=== PATIENT | female | born 1965 | race Caucasian/White ===

== ENCOUNTER 2024-01-13 12:32 | Outpatient (OUT) | payer OTHER, SELFPAY ==
[2024-01-13 13:38] LABS: Estimated Average Glucose 111 mg/dL; Glycohemoglobin A1C 5.5 % (4.5-6.2)
[2024-01-13 13:58] LABS: Alanine Aminotransferase 21 U/L (14-59); Albumin Globulin Ratio 1.1; Albumin Level 3.7 g/dL (3.4-5.0); Alkaline Phosphatase 80 U/L (46-116); Aspartate Amino Transferase 11 U/L (15-37); Bilirubin Direct 0.1 mg/dL (0.0-0.2); Bilirubin Total 0.6 mg/dL (0.2-1.0); Chol HDL Ratio 3.7; Cholesterol 218 mg/dL (<=200); Estimated GFR (African America >60 (>=60); Estimated GFR (Non-African Ame >60 (>=60); Globulin 3.3 g/dL; HDL Cholesterol 59 mg/dL (40-60); Thyroid Stimulating Hormone 0.914 uIU/mL (0.358-3.740); Triglycerides 114 mg/dL (<=150); VLDL CHOLESTEROL 22.8 mg/dL
[2024-01-13 14:26] LABS: Basophils Percent Auto 0.3 % (0.2-2.0); Eosinophils Percent Auto 0.1 % (0.9-7.0); Hematocrit 44.3 % (36.0-48.0); Hemoglobin 14.4 g/dL (12.0-16.0); Immature Granulocytes Abs Auto 0.02 10^3/uL (0.00-0.03); Immature Granulocytes Pct Auto 0.2 % (0.0-0.5); Lymphocytes Absolute Auto 1.1 10^3/uL (1.2-3.8); Lymphocytes Percent Auto 12.1 % (20.5-60.0); Mean Corpuscular HGB Conc 32.5 g/dL (29.9-35.2); Mean Corpuscular Volume 89.1 fL (81.0-99.0); Mean Platelet Volume 11.3 fL (9.5-13.5); Monocytes Absolute Auto 0.4 10^3/uL (0.3-0.8); Monocytes Percent Auto 4.2 % (1.7-12.0); Neutrophils Absolute Auto 7.3 10^3/uL (1.4-6.5); Neutrophils Percent Auto 83.1 % (43.0-75.0); Platelet Count 234 10^3/uL (150-450); Red Blood Count 4.97 10^6/uL (4.20-5.40); Red Cell Distribution Width 12.9 % (11.0-15.0); White Blood Count 8.8 10^3/uL (4.0-11.0)
== END 2024-01-13 12:33 | disposition home or self-care (01) ==
LOC: LAB 12:45
PROVIDERS: PCP Internal Medicine; Visit Provider Internal Medicine
DX: E78.2 Mixed hyperlipidemia (principal); Z79.899 Other long term (current) drug therapy; R73.09 Other abnormal glucose; E03.9 Hypothyroidism, unspecified; I10 Essential (primary) hypertension
CPT/HCPCS: 36415; 80061; 80076; 82565; 83036; 84443; 84520; 85025

== ENCOUNTER 2024-09-22 14:47 | Outpatient (OUT) | payer OTHER, SELFPAY ==
--- NOTE | 2024-09-22 14:50 | MR_ITS ---
[facility] [id number] Patient Name: LISA RAMOS MRN: [id number] date: 1965 Sex: F Assigned Patient Location: MRI Current Patient Location: MRI Accession/Order Number: [id number] Exam Date: 09/22/2024 14:55 Report Date: 09/22/2024 20:47 At the request of: JULIETTE PICKERING Procedure: MR head/brain wo con EXAM: MR head/brain wo con HISTORY: Syncope, Tremors COMPARISON: None. TECHNIQUE: MRI of the brain was performed without contrast. FINDINGS: Exam is distorted secondary to motion artifact. Findings are made within these confines. There is no restricted diffusion to suggest acute infarct. There is no midline shift, mass effect, or abnormal extraaxial fluid collections. The cortical sulci and ventricular system are within normal limits. There are a few nonspecific scattered foci of T2/FLAIR signal abnormality in the subcortical and periventricular white matter. The major intracranial flow voids are visualized. The cerebellar tonsils are normal in position. The orbits are unremarkable. The paranasal sinuses show no air-fluid level. The mastoid air cells are clear. The calvarium and extracranial soft tissues are unremarkable. MR/MR head/brain wo con IMPRESSION: Within the limitations of motion artifact, no discrete acute intracranial abnormality identified. Mild T2/FLAIR signal abnormality in the supratentorial white matter, most likely based on chronic microvascular ischemia or migraine headaches. Electronically authenticated by: JAY HAM Date: 09/22/2024 20:47
== END 2024-09-22 14:48 | disposition home or self-care (01) ==
LOC: MRI 14:47
PROVIDERS: PCP Internal Medicine; Visit Provider Internal Medicine
DX: R55 Syncope and collapse (principal); R25.1 Tremor, unspecified
CPT/HCPCS: 70551

== ENCOUNTER 2025-02-08 08:53 | Outpatient (OUT) | payer OTHER, SELFPAY ==
--- OUTSIDE RECORDS SUMMARY | 2025-02-08 09:06 | XMS_ITS | CCD ---
Author Organization [facility] Care Team Providers Care Substation Design Draftsperson Name Role Phone PHYSICIAN, DEFAULT Unavailable Unavailable PHYSICIAN, DEFAULT Unavailable Unavailable PHYSICIAN, DEFAULT Unavailable Unavailable PHYSICIAN, DEFAULT Unavailable Unavailable SOHAIL PICKERING Admitting Unavailable SOHAIL PICKERING Attending Unavailable SOHAIL PICKERING Primary Care Unavailable SOHAIL PICKERING Consulting Unavailable Viki Shankar Unavailable DAILY Swenson Attending Unavailable DAILY Swenson Admitting Unavailable SOHAIL PICKERING JR. Primary Care UnavailADAMA Weiss Attending Unavailable Unavailable Primary Care Provider UnavailSohail Rod MD Primary Care Provider [phone] Sohail Pickering JR Primary Care Provider [phone] Cesar Hurt DO Attending Provider [phone] Sohail Pickering Primary Care Unavailable Cesar Hurt Attending Unavailable Cesar Hurt Admitting Unavailable Licha JARA Cesar Unavailable CESAR HURT Attending Unavailable SOHAIL PICKERING Referring Unavailable CESAR HURT Attending Unavailable CHRISTINA PIZANO Attending Unavailable CHRISTINA PIZANO Referring Unavailable ETHAN TIWARI Attending Unavailable ETHAN TIWARI Attending Unavailable ETHAN TIWARI Attending Unavailable Allergies Allergy Classification Reported Allergen(s) Allergy Type Date of Onset Reaction(s) Facility (6 sources) carvedilol; Translations: [CARVEDILOL] Drug Allergy 3 Nausea Only [facility] Repository (6 sources) rosuvastatin; Translations: [ROSUVASTATIN] Drug Allergy 3 Nausea Only [facility] Repository (5 sources) Salvia Officinalis Propensity to adverse reactions 4 Unknown [facility] Medications Current Medications Medication Drug Class(es) Dates Sig (Normalized) Sig (Original) amoxicillin 875 mg / clavulanate 125 mg oral tablet (1 source) Penicillin-class Antibacterial Start: 10-06-2023 take 1 tablet by mouth every twelve hours Amoxicillin-Pot Clavulanate 875-125 MG 1 tablet Orally every 12 hrs for 10 Sep, Active ergocalciferol 1.25 mg oral capsule (5 sources) Provitamin D2 Compound Start: 05-05-2023 ergocalciferol (Vitamin D2) 1.25 MG (32980 UT) capsule 05/05/2023 Active 24 hr fluvastatin 80 mg extended release oral tablet (6 sources) HMG-CoA Reductase Inhibitor take 1 tablet by mouth once daily fluvastatin XL (Lescol XL) 80 MG 24 hr tablet Take 1 tablet every day by oral route for 90 days. Active Lescol XL Active gabapentin 600 mg oral table t (5 sources) Anti-epileptic Agent gabapentin (Neurontin) 600 MG tablet Take by oral route for 90 days. Active icosapent ethyl 1000 mg oral capsule (6 sources) Icosapent Ethyl (Vascepa) 1 g capsule Take 1 capsule every day by oral route for 90 days. Active Vascepa Active levothyroxine sodium 0.05 mg oral tablet (6 sources) l-Thyroxine take 1 tablet by mouth once daily Synthroid 50 MCG tablet Take 1 tablet every day by oral route for 90 days. Active Synthroid Active lisdexamfetamine dimesylate 40 mg oral capsule (6 sources) Central Nervous System Stimulant End: 12-01-2024 take 1 capsule by mouth once daily Vyvanse 40 MG capsule Take 1 capsule by mouth Daily 12/01/2024 Discontinued Vyvanse Active loratadine 10 mg oral tablet (5 sources) loratadine (Clar itin) 10 MG tablet 1 (one) time each day at the same time Active metoprolol tartrate 50 mg oral tablet (7 sources) beta-Adrenergic Kellee metoprol ol tartrate (Lopressor) 50 MG tablet 1 (one) time each day at the same time Active Metoprolol Succi jaleesa ER Active Toprol XL Not-Ta sophie/PRN montelukast 10 mg oral tablet (6 sources) Leukotriene Receptor Antagonist take 1 tablet by mouth once daily montelukast (Singulair) 10 MG tablet Take 1 tablet by mouth Daily Active Singulair Active risperiDONE 0.5 mg oral tablet (2 sources) Atypical Antipsychotic Start: 12-01-2024 take 0.5-1 tablets by mouth once at bedtime risperiDONE (RisperDAL) 0.5 MG tablet Indications: Dystonia 1/2-1 po q hs 30 tablet 2 12/01/2024 Active Start: 12-01-2024 take 0.5-1 tablets b y mouth once at bedtime risperiDONE (RisperDAL) 0.5 MG tablet Indications: Dystonia 1/2-1 po q hs 30 tablet 2 12/01/2024 Active tiZANidine 4 mg oral tablet (7 sources) Central alpha-2 Adrenergic Agonist Start: 12-01-2024 tiZANidine (Zanaflex ) 4 MG tablet Indications: Dystonia , Muscle spasm 1/2-1 po q bid 30 tablet 2 12/01/2024 Active Start: 12-01-2024 tiZANidine (Za naflex) 4 MG tablet Indications: Dystonia , Muscle spasm 1/2-1 po q bid 30 tablet 2 12/01/2024 Active Start: 10-20-2024 End: 12-01-2024 tiZANidine (Zanaflex) 4 MG t ablet Indications: Dystonia , Muscle spasm 1/2-1 po q bid 30 tablet 2 10/20/2024 12/01/2024 Discontinued Vitamin D (1 source) Vitamin D (Ergoc alciferol) Active Completed/Discontinued Medications Medication Drug Class(es) Dates Sig (Normalized) Sig (Original) cyclobenzaprine (1 source) Muscle Relaxant Flexeril Not-Taking/PRN fluconazole 150 mg oral tablet (1 source) Azole Antifungal take 1 tablet by mouth once as needed Diflucan 150 MG 1 tablet Orally once for 1 days Not-Taking/PRN nystatin 538447 unt/ml topical cream (1 source) Polyene Antifungal Start: 12-11-2019 Nystatin [id number] UNIT/GM 1 application Externally Twice a day for 5 days Nov, Not-Taking/PRN Problems Active Problems Problem Classification Problem Date Documented Da te Episodic/Chronic Congestive heart failure; nonhypertensive (1 source) Chronic diastolic (congestive) heart failure; Translations: [CHRONIC DIASTOLIC HEART FAILURE] Onset: 03-20-2020 Chronic Disorders of lipid metabolism (11 sources) Mixed hyperlipidemia; Translations: [Hyperlipidemia, unspecified] Onset: 03-19-2020 Chronic Disorders usually diagnosed in infancy, childhood, or adolescence (2 sources) Motor tic disorder; Translations: [Other tic disorders] 12-01-2024 Chronic Essential hypertension (5 sources) Hypertensive disorder; Translations: [Essential (primary) hypertension] Onset: 01-14-2024 01-14-2024 Chronic Nutritional deficiencies (1 source) Vitamin D deficiency, unspecified; Translations: [VITAMIN D DEFICIENCY UNSPECIFIED] Onset: 03-20-2020 Chronic Other aftercare (1 source) Other fpc (current) drug therapy; Translations: [[employer]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] Onset: 03-20-2020 Episodic Other connective tissue disease (4 sources) Spasm; Translations: [Other muscle spasm] 10-20-2024 Episodic Other hereditary and degenerative nervous system conditions (4 sources) Dystonia; Translations: [Dystonia, unspecified] 10-20-2024 Chronic Other hereditary and degenerative nervous system conditions (1 source) Dystonia, unspecified; Translations: [Dystonia, unspecified] Onset: 10-20-2024 Chronic Other upper respiratory infections (1 source) Acute maxillary sinusitis, unspecified Episodic Syncope (5 sources) Vasovagal syncope; Translations: [Syncope and collapse] 08-26-2024 Episodic Thyroid disorders (6 sources) Hypothyroidism, unspecified; Translations: [Hypothyroidism] Onset: 03-20-2020 01-14-2024 Chronic Past or Other Problems Problem Classification Problem Date Documented Da te Episodic/Chronic Cardiac dysrhythmias (7 sources) Palpitations; Translations: [Tachycardia] Onset: 09-02-2018 Episodic Results Test Name Value Interpretation Reference Range Facility Copperon 10-20-2024 Copper 100 ug/dL Normal 80-158 [facility] Comment on above: Result Comment: This test was developed and its performance characteristics determined by [facility]. It has not been cleared or approved by the Food and Drug Administration. Detection Limit = 5 Performed at: [address] [id number] Carton Stenciler: Prieto Bender MD, Phone: [phone] PERFORMED BY: [address] [address] PATHOLOGIST DOCK GUARD ONOFRE ALEJANDRO M.D. Performed By: #### B 12, CK, TSH3, FOL #### [place] [address] [place] #### CU #### [facility] , Creatine Kinaseon 10-20-2024 CK [Catalytic activity/Vol] 39 U/L Normal [facility] Comment on above: Result Comment: PERF ORMED BY: [place] [address] PATHOLOGIST DOCK GUARD ONOFRE ALEJANDRO M.D. Performed By: #### B 12, CK, TSH3, FOL #### [place] [address] [place] #### CU #### [facility] , Creatine kinase [Enzymatic a ctivity/volume] in Serum or PlasmaOrdered By: Cesar Hurt on 10-20-2024 CK [Catalytic activity/Vol] Creatine kinase [Enzymatic activity/volume] in Serum or Plasma [facility] Folateon 10-20-2024 Folate 14.7 ng/mL Normal >5.9 [facility] Comment on above: Result Comment: Justa te reference range: >5.9 ng/ml The WHO technical consultation on folate and vitamin b12 deficiencies has determined that folate concentrations less than 4 ng/ml are considered deficient. Performed By: #### B 12, CK, TSH3, FOL #### [place] [address] [place] #### CU #### [facility] , Folate [Mass/volume] in Seru m or PlasmaOrdered By: Cesar Hurt on 10-20-2024 Folate [Mass/Vol] Folate [Mass/volume] in Serum or Plasma >5.9 [facility] Comment on above: Folate reference ran ge: >5.9 ng/mlThe WHO technical consultation on folate and vitamin [id number] has determined that folate concentrations lessthan 4 ng/ml are considered deficient. Thyroid Stimulating Hormoneo n 10-20-2024 TSH Qn 1.86 m[IU]/L Normal 0.45-5.33 [facility] Comment on above: Result Comment: PERF ORMED BY: [place] [address] PATHOLOGIST DOCK GUARD ONOFRE ALEJANDRO M.D. Performed By: #### B 12, CK, TSH3, FOL #### [place] [address] [place] #### CU #### [facility] , Thyrotropin [Units/volume] i n Serum or PlasmaOrdered By: Cesar Hurt on 10-20-2024 TSH Qn Thyrotropin [Units/volume] in Serum or Plasma 0.45-5.33 [facility] Vitamin B12on 10-20-2024 Cobalamin (Vitamin B12) [Mass/Vol] 329 pg/mL Normal 180-914 [facility] Comment on above: Performed By: #### B 12, CK, TSH3, FOL #### [place] [address] [place] #### CU #### [facility] , Vitamin B12 ser/plasOrdered By: Cesar Hurt on 10-20-2024 Cobalamin (Vitamin B12) [Mass/Vol] Vitamin B12 ser/plas 180-[address] [facility] [address] Cervical spine WO contras ton 08-26-2024 1. No acute osseous abnormality of the cervical spine. 2. Mild degenerative changes. [facility] CONSOLIDATED EXAMINATION: CT OF THE CERVICAL SPINE WITHOUT CONTRAST 08/25/2024 11:40 pm TECHNIQUE: CT of the cervical spine was performed without the administration of intravenous contrast. Multiplanar reformatted images are provided for review. Automated exposure control, iterative reconstruction, and/or weight based adjustment of the mA/kV was utilized to reduce the radiation dose to as low as reasonably achievable. COMPARISON: None. HISTORY: ORDERING SYSTEM PROVIDED HISTORY: Syncopal episode, L neck pain TECHNOLOGIST PROVIDED HISTORY: Syncopal episode, L neck pain Decision Support Exception - unselect if not a suspected or confirmed emergency medical condition->Emergency Medical Condition ([place]) Reason for Exam: Syncopal episode, nausea, vomiting after a massage, left side neck pain FINDINGS: BONES/ALIGNMENT: There is no acute fracture or suspect osseous lesion. Vertebral body heights are maintained. There is 2 mm degenerate anterolisthesis of C3 on C4 secondary to facet arthropathy. Alignment is otherwise normal. DEGENERATIVE CHANGES: Mild C5-6 degenerative disc disease with posterior disc osteophyte complex causing mild spinal canal stenosis. Mild multilevel neural foraminal narrowing secondary to facet hypertrophy. SOFT TISSUES: No acute paraspinal soft tissue abnormality. Mild calcific atherosclerosis. [facility] CONSOLIDATED Oliver Joshua MD - 08/26/2024 EXAMINATION: CT OF THE CERVICAL SPINE WITHOUT CONTRAST 08/25/2024 11:40 pm TECHNIQUE: CT of the cervical spine was performed without the administration of intravenous contrast. Multiplanar reformatted images are provided for review. Automated exposure control, iterative reconstruction, and/or weight based adjustment of the mA/kV was utilized to reduce the radiation dose to as low as reasonably achievable. COMPARISON: None. HISTORY: ORDERING SYSTEM PROVIDED HISTORY: Syncopal episode, L neck pain TECHNOLOGIST PROVIDED HISTORY: Syncopal episode, L neck pain Decision Support Exception - unselect if not a suspected or confirmed emergency medical condition->Emergency Medical Condition ([place]) Reason for Exam: Syncopal episode, nausea, vomiting after a massage, left side neck pain FINDINGS: BONES/ALIGNMENT: There is no acute fracture or suspect osseous lesion. Vertebral body heights are maintained. There is 2 mm degenerate anterolisthesis of C3 on C4 secondary to facet arthropathy. Alignment is otherwise normal. DEGENERATIVE CHANGES: Mild C5-6 degenerative disc disease with posterior disc osteophyte complex causing mild spinal canal stenosis. Mild multilevel neural foraminal narrowing secondary to facet hypertrophy. SOFT TISSUES: No acute paraspinal soft tissue abnormality. Mild calcific atherosclerosis. IMPRESSION: 1. No acute osseous abnormality of the cervical spine. 2. Mild degenerative changes. [facility] CT Head WO contraston 2023 No acute intracranial abnormality. [facility] CONSOLIDATED EXAMINATION: CT OF THE HEAD WITHOUT CONTRAST 08/25/2024 11:15 pm TECHNIQUE: CT of the head was performed without the administration of intravenous contrast. Automated exposure control, iterative reconstruction, and/or weight based adjustment of the mA/kV was utilized to reduce the radiation dose to as low as reasonably achievable. COMPARISON: None. HISTORY: ORDERING SYSTEM PROVIDED HISTORY: Syncopal episode, nausea, vomiting TECHNOLOGIST PROVIDED HISTORY: Syncopal episode, nausea, vomiting Decision Support Exception - unselect if not a suspected or confirmed emergency medical condition->Emergency Medical Condition ([place]) Reason for Exam: Syncopal episode, nausea, vomiting after a massage FINDINGS: BRAIN/VENTRICLES: There is no acute intracranial hemorrhage, mass effect or midline shift. No abnormal extra-axial fluid collection. The painter-white differentiation is maintained without evidence of an acute infarct. There is no evidence of hydrocephalus. ORBITS: The visualized portion of the orbits demonstrate no acute abnormality. SINUSES: The visualized paranasal sinuses and mastoid air cells demonstrate no acute abnormality. SOFT TISSUES/SKULL: No acute abnormality of the visualized skull or soft tissues. [facility] Oliver Aguilera MD - 08/26/2024 EXAMINATION: CT OF THE HEAD WITHOUT CONTRAST 08/25/2024 11:15 pm TECHNIQUE: CT of the head was performed without the administration of intravenous contrast. Automated exposure control, iterative reconstruction, and/or weight based adjustment of the mA/kV was utilized to reduce the radiation dose to as low as reasonably achievable. COMPARISON: None. HISTORY: ORDERING SYSTEM PROVIDED HISTORY: Syncopal episode, nausea, vomiting TECHNOLOGIST PROVIDED HISTORY: Syncopal episode, nausea, vomiting Decision Support Exception - unselect if not a suspected or confirmed emergency medical condition->Emergency Medical Condition ([place]) Reason for Exam: Syncopal episode, nausea, vomiting after a massage FINDINGS: BRAIN/VENTRICLES: There is no acute intracranial hemorrhage, mass effect or midline shift. No abnormal extra-axial fluid collection. The painter-white differentiation is maintained without evidence of an acute infarct. There is no evidence of hydrocephalus. ORBITS: The visualized portion of the orbits demonstrate no acute abnormality. SINUSES: The visualized paranasal sinuses and mastoid air cells demonstrate no acute abnormality. SOFT TISSUES/SKULL: No acute abnormality of the visualized skull or soft tissues. IMPRESSION: No acute intracranial abnormality. [facility] CT Head WO contrastOrdered B y: Oliver Joshua on 08-26-2024 [facility] Work Phone: Basic Metabolic Panelon 12-0 Anion gap [Moles/Vol] 11 mmol/L 9 - 16 mmol/L [facility] Calcium [Mass/Vol] 8.9 mg/dL 8.6 - 10. 4 mg/dL [facility] Chloride [Moles/Vol] 105 mmol/L 98 - 10 7 mmol/L [facility] CO2 [Moles/Vol] 25 mmol/L 20 - 31 mmol/L [facility] Creatinine [Mass/Vol] 0.7 mg/dL 0.7 - 1.2 mg/dL [facility] EstDawson Rate - PIN[facility] Comment on above: These results are not intended for use in patients <18 years of age. eGFR results are calculated without a race factor using the 2020 CKD-EPI equation. Careful clinical correlation is recommended, particularly when comparing to results calculated using previous equations. The CKD-EPI equation is less accurate in patients with extremes of muscle mass, extra-renal metabolism of creatine, excessive creatine ingestion, or following therapy that affects renal tubular secretion. Glucose [Mass/Vol] 106 mg/dL High 74 - 99 mg/dL [facility] Interpretation and review of laboratory results Abnormal [facility] Potassium [Moles/Vol] 3.5 mmol/L Low 3.7 - 5.3 mmol/L [facility] Comment on above: Specimen hemolysis h as exceeded the interference as defined by [place]. Value may be falsely increased. Suggest recollection if clinically indicated. Sodium [Moles/Vol] 141 mmol/L 136 - 145 mmol/L [facility] Urea nitrogen [Mass/Vol] 14 mg/dL 6 - 20 mg/dL [facility] CBC with Auto Differentialon 08-25-2024 Basophils (Bld) [#/Vol] 0.00 10*3/uL [facility] Basophils/100 WBC (Bld) 0 % 0 - 2 % [facility] Eosinophils (Bld) [#/Vol] 0.10 10*3/uL [facility] Eosinophils/100 WBC (Bld) 1 % 0 - 4 % [facility] Erythrocyte distribution width (RBC) [Ratio] 12.9 % 11.5 - 14.9 % [facility] Hematocrit (Bld) [Volume fraction] 41.8 % 36 - 46 % [facility] Hemoglobin (Bld) [Mass/Vol] 14.0 g/dL 12.0 - 16.0 g/dL [facility] Interpretation and review of laboratory results Abnormal [facility] Lymphocytes/100 WBC (Bld) 10 % Low 24 - 44 % [facility] Lymphocytes/100 WBC (Bld) 1.00 % [facility] MCH (RBC) [Entitic mass] 29.9 pg 26 - 34 pg [facility] MCHC (RBC) [Mass/Vol] 33.4 g/dL 31 - 37 g/dL [facility] MCV (RBC) [Entitic vol] 89.5 fL 80 - 100 fL [facility] Monocytes/100 WBC (Bld) 5 % 1 - 7 % [facility] Monocytes/100 WBC (Bld) 0.60 % [facility] Neutrophils/100 WBC (Bld) 84 % High 36 - 66 % [facility] Platelet mean volume (Bld) [Entitic vol] 9.1 fL 6.0 - 12.0 fL [facility] Platelets (Bld) [#/Vol] 111 10*3/uL Low [facility] RBC (Bld) [#/Vol] 4.68 10*6/uL 4.0 - 5.2 m/uL [facility] Segmented neutrophils/100 WBC (Bld) 9.00 % [facility] WBC other (Bld) [#/Vol] 10.[address] [facility] [address] Cervical spine WO contras ton 08-25-2024 Radiology Study observation (narrative) [facility] CT Head WO contraston 2023 Radiology Study observation (narrative) [facility] Magnesiumon 08-25-2024 Magnesium [Mass/Vol] 2.1 mg/dL 1.6 - 2 .6 mg/dL [facility] No Panel Informationon 08-25 [facility] Troponinon 08-25-2024 Troponin I.cardiac High sensitivity method [Mass/Vol] ng/L 0 - 14 ng/L [facility] Comment on above: High Sensitivity Tro ponin values cannot be compared with other Troponin methodologies. 36on 06-17-2024 36 Patient called stating the atorvastatin 80mg gave her 6-7 hours worth of diarrhea. She also had myalgias. She stopped taking it. I asked her to take half tablet and see if she could tolerate that. She said she'll be done with work in a week and will try half tablet then. I asked her to call me back with update on how she does. She verbalized understanding. Normal [facility] Office Visiton 05-27-2024 Follow-up visit [id number] Lisa Ramos 1965 F Date Provider Department Center 05/27/2024 [facility]8-ADAMA [facility]ON [facility] Family History Problem Relation Age of Onset Other Father Heart attack Maternal Grandfather Family Status - Relation Status Age at Father Maternal Grandfather Level of Service:64729 OR OFFICE/OUTPATIENT ESTABLISHED MOD MDM 30 MIN Normal [facility] Coding Summaryon 01-12-2024 Coding Summary HTMLBase 64 FrtcgqrtZFs4rHi+PGhl YWQ+MG6FVQSyW87aaRFk wT7kM0UEJKoSGtjhIEMG PIyRXwDvdvJeSH7jpETf ZXJu IC8+ZF3kKNRcXnpqyVRb i7K9kOF5P04cqx0yTJtd qCT5YUWpPlHkvcvtz0gh cNl1AXzvFlcuBsTb LSFlzH76OSH3eL85Bf63 eUAcwKBkn5yhrTq2JnDf VSXjMXI9zFjwRHeyr7Yk BLYmI62xeUYki1C7 IGNvbGxhcHNlOyBlbXB0 mO7kUOokxsoob5oemktt Van8mq49zLYkr8G2sNS5 Z5IprlW1XMPpiRYp GokazALWnR3vcpvyt9ah cofxVlGeDIJvNFz0JMo3 HHFvkKlqQhThVJ12FRI0 CLPiqqLvU6RsDNOo dMgzTkO8k1C1Xj9BF8GL JqtyB2FIFMTZPHxogGN+ KD82xf09R6EvUvkxGgk4 UGVkSGO5bGH8pZ7l ZDThBNfyh6W7nKI9K6Ir llTptx3nr5cxGHJuBXft V85qoUJkv9Z0OXLxfUF0 KLCrcZrfLaXjkT41 Oyc+CQPlcDwar1BpYaze k0ocp1ofoXu5FysqNLAq qaFuhPbbIAM3k5FdMl3j UJZqzRE3tCD5gU2e RqWhGmP0AOhrV436ViQy dGPbHhzmI52mF7BgeFT+ WPHoFvz3ZXIsfHuiYE4l K9BoPCOaywvnmPHo wNeuQA3eEQTmwkqvNNWv gF1gVWShJ1d8CcXuDoZ1 CBagK9TkFHUoarlwEt87 lE1zWzJvChW4VPdz W5GjgmY6GNEunNJpBSfp TBT5O54ro9K9VSXwXXKd QBY9zHN4pT9ivLzsybte bGVmdDsgdmVydGlj CIzxCIbeZ531HLItkZvy PkNvZGluZyBEYXRlOiAg MDQvMjMvMjAyNDwvdGQ+ SYZqXXF3mTveTBLt kEDjABuwNd0ztYedfYfx LK5bGIJaceqtWALlyW5z AMYggEUpyMwoXA8tPJUg yxutz129CsTjALA0 ECZvwGAtW2NnmN4dTkRu FIQsUEFpG4ZnuAKyFUjc K233YSseQjW1VPNgnfMs C0DhLOOnnSchSbY2 s0H8Rm8Jk2IqwuobQ7Ri fXVaUvZvCrdaSAo4H7Vx PjwvdHI+DJ43ZVNmGN10 GLg1NBE2fWjkYMpy GCXnB3AwmB8wLtZfMOXi ZGRkOyc+PHRhYmxlIHdp ZHRoPScxMDAlJyBzdHls UY9pMi7yEYEnRKWd kYptrTDsHyCgg5dxMEQv TRzvLX5qdVirC6RgxUJ0 HBAji3d5Tm69O06wR7Wr dXA+TWWkwLM2fKI0 hL1nUpUtVmS3GPafA752 NrWbzQFsPysog2iec6ur mJm8FoS2RPYccuZsmEnj RCP7r9JeDy63Y82s IHdpZHRoPSIxNSUiIHZh kGycqz0trR5cOw3+PGNv gOS0rPS7aK1cHjYjDuO5 NUloM609GnDjzUFu Zxrss7wmz2phiDn9SbJo GMKuinBttKgcAEB9i1Sk Tq04Q9KdnSufe3NoLss9 mi26uBKhr0X8lMF6 R4DgIMSfwwevdIAojVtu XP0rPMWwabdvOIDrxS8k HYDcG4q5MfLmFeC8TLvh E9FucuD8TZEclZGp JNWjmJUUnR2jtiizx5yr szqsCbQdYNJoLIi3CRx7 PYRlxJukOgYuNZW2YbR5 UEC7dHPogA5hdFaj pjrodY1eOfe+MJB0pWYt vKKZBT0aQyjqlFW+PHRk SUN5uIkaJKggQSStrX4z HHJwR0y8DcXtVwJ5 PPlnM4ZxyyL5XFVzrUYn ZQVadPKDrT6oghekn3yx psmgXiCkXNOoLIr2AUp6 LWFsaWduOiBsZWZ0 FqI7TFN1yFNdnA5hzDao fmlayC4qMkz+QmlydGgg EKK2QLb8G6OcJfu6QIOy iFbbPW2guTAfOClz Oe7fmTxvxIqwBY0cYUCc zzzfi618IdQgt1dqQEZp eBYsBGjfSVS3W28pa5V3 ISSjDRCuJDW9aIS0 gJ0dvHwvxairfGSrzIld xbVgrPrxWVlwBBbbV782 RKOgtCraCmVcHPn5A2Kk Uuj7RMAzeJtdHF2g uKWdWHcsSa2ksSmdzHpp GY5sTEYletzif076QpFe i3khGBGinPIlTBiwOSN8 I74ss0I2ZYNcOCVb APH4ySG7kU2kuPdsoswe bGVmdDsgdmVydGljYWwt FEdsN997KRWdkIsbZbOi bNf9H6MnUra2QQNx iMmdLV0pwLHhZFmaSy7j jCwiuCwwSB6sPYReqwjc d939VlSxc0pmKDEkoZTy BHskAPU4Y58xg5Y4 SMBzOOCoTNZ1zTT4bX8u bGlnbjogbGVmdDsgdmVy qOeqXUlsSGnhG210WLHh cDsnPlBhdGllbnQg LJnvUEb3H5MmJgpiiUR+ WT95YZAeRJ77qIKxcHNz i5tlsEy6FxZhZKTzALH6 wXngCIsye0TtKRMq Q57oxFOgm5M9DAIvvLav dBZcWcLrtWD8vL3nLUyj rauek5ptzsdpGzfsw9bb xk98iZ00O57gHRmt ZHRoPSIzMCUiIHZhbGln iy5qdK9wPa7+PGNvbCB3 cYO0pQ2gEDYoGeV3JAzo S165FsRpfTJzWxjf j0dzr5rylWh4QvX8QBJk ohAlgFdlHSH9k1UnJd83 Z79zLXcuVMSiPKXnGHLq WMOdqEtglb0dvU1c Ii8+LSHebAX1iXX2bL8v EyOtEsI1CGmzW768UiGf qYSsYjxfE60pH3ThvWG+ FUHeNjs4WFZtcTab ZT6mzWStNBdoGr6dIEN5 JxPsLsTzHPpwG9BkRMPj taeurxhjjAA3MXGyVJNz yI09Cb8dkYffAXAl iLAHfD2ewxuyd1nsuwlk DjPrIEPrRNw8DOc9IULe tNwuCdAfMMB8YzX4ASQ1 eXTweM0kvAkdqmjg qF7bE2RfPIXrsyseKb30 xQ8qQaImImM1SIziJuk+ Y8pGECnrEQ3SZJrUQKzN WTwvdGQ+PHRkIHN0 lJybLIcfHOYyeL1jZFAy E1i1JxHvQoV1DGafE5Ai XHNfmpveHh33oA1jYcUt NgK2OLzsE1ZqpeA6 PJZjeEAfOCbcMVV4W90y g3Y7OFCpCKWhHBT3eCO4 mF8asDjrrobfuFGotIlq dmVydGljYWwtYWxp K683NPSuxRziChClIlB7 XfR2IlU3T4FzRuo3PHIz cSlwII2iaHVvZNazVx1b zQwjtKasVM2jXYEt lpjiOJWvpI4pCNOupZHu zKedWR2sDUGnxrrlv211 CqOpDVR3KLUpeRTyN1Ta yJ6xQoLdZEFjXZWq J4PumBBhUYkrV401LHvo DtV2RAGagqIfK3CwNXNz qEkyYgQ0f0N4Yu21NeOP ZWFyczwvdGQ+PHRk HMB7gGobEDetYXOgdQ5t UGFdJ9z1EzXtGfI4XIlb B0LiIYTklbzyPt59lR2s NhKpBtK2FPpzK5Dd toH5KOVomWUtRHsfIOI0 [id number] vPU6hH2viRuwswgpeCDp dDsgdmVydGljYWwt HYeaE572URTasWitKyLZ TUFMRTwvdGQ+PHRkIHN0 eElpVKqiSZWjlP9iACMj M6v7UiRlTjA2PJkx U9QvIWXntxoeCf15jJ4q SiOzTvI9GQbrB5VscmE1 MIKopRIdUFdbCXT1E97e y9J3JILmTDCvSOW3 bSY0iN7tcPhezvmjjVKr dDsgdmVydGljYWwtYWxp N287BGPyaNeuWo5EJM80 YU03A2BsKiomrNIq bGU+PHRhYmxlIHdpZHRo JMhtJVXqWwFspMrsNW4y Gh7aKLBoHWBbgRidiJAo MvDca7ayRHThYZxw UR3zfLxrI0LxmFO9GREr b1g1Oj96C68kW5CadJG+ ZAVgnRF3zJE8fB6cAsRq RdZ3VQtjE442JvEc xQEgEsxkw0ovy0rzeHx0 IjMwJSIgdmFsaWduPSJ0 d9VmCr26R79aEZhuSOCu PSIyMCUiIHZhbGln fz7mrB5eQv3+PGNvbCB3 oTW4jB6eLmGzQdK0DSsu I546NnNopBXlRyohC32e W6ZqvPB+PHRyPjx0 QOZysCgnLJ3loGEuSTtp Vz0xNRD7EzPtBxDrNWag K6FaSAFtvsyzndkbdXZ4 XPTgNCNnhX37An3l sBkwFt2oLJYpDJV4RIHp aMQkU3RurE4cTbEkRGLt JICiZ0HptFRrOSsqE185 WHphQjW2QBDvcgVk R3VxDUOvjYktUbQ4o5J2 Xx1MzLjgyUEqFS9wGvYf FTz7V6UsSig6AQCdxDfh FV4naNBxKXoeUy2c kUaejDieQS2jMJTpirrq v270NtYwa8oxHHZcaXBm QIigVMB7N79sx6O3UAOn DMYgURU4bDZ3eQ3g bGlnbjogbGVmdDsgdmVy bBpaVFyhNTqqT387MQVa rArcJgYPKdr1H1SgQpo8 PONgnAliUK6qsULh NNecWp7ntXtgzSnzRY2b PVOyrzfju936IiXss8xe PTPxiQGzZIsgMNS6O81d o1S4LGOvYPPqTYY6 uDH8lH2ucDctpdxalYWs dDsgdmVydGljYWwtYWxp C630BVLncXyjGg4VQrl6 Q8NjVgx9RKPlgYok JG1kzORaZOkhTf1pqGkh nIkqRO0eIGPfadwyz506 OcCfa7ydXACynXKzNKrg EME4C57hk7V1IXIz JTYvUFA4mUV1oO7plXvi bjogbGVmdDsgdmVydGlj TXwwEGkpM802PXZpmElc PlBheWVyOjwvdGQ+ HW74gp54R5NfZwnwMoj4 BMEgBWJ1tMJ6tF7fPIRz ZGfne5P8uFD2L8PsyvMr sy6vb2jjWLSgVVei Y29 (more content not included)... Normal [facility] MR KNEE RIGHT WO IV CONTRAST on 01-05-2024 MR KNEE RIGHT WO IV CONTRAST Exam: MR KNEE RIGHT WO IV CONTRAST History: Medial knee pain. Knee instability. Technique: Multiplanar multisequence MRI of the knee was performed without contrast. Comparison: None available Findings: Quadriceps and patellar tendons are intact. No joint effusion. Patella willian. The trochlear groove is not shallow. Tibial tuberosity to trochlear groove distance of approximately 18 mm. Edema within superolateral Hoffa's fat pad. Anterior and posterior cruciate ligaments are intact. The medial collateral ligament, lateral collateral ligament, and popliteus are intact. The medial and lateral meniscus are intact. Full-thickness cartilage loss of the inferior medial lateral facet with subcortical bone marrow edema. Tiny focus of subcortical bone marrow edema of the medial patellar facet secondary to occult full-thickness cartilage fissure. Approximately 1.5 cm area of partial-thickness cartilage loss of the outer weightbearing medial femoral condyle with tiny full-thickness cartilage defect resulting in tiny focus of subcortical bone marrow edema. Popliteal fossa structures are intact. No Sims cyst. IMPRESSION: Findings predisposing to and suggesting patellar instability/maltrack ing. Mild osteoarthritis. ELECTRONICALLY SIGNED BY: Johnnie Ledezma DO Normal Not Available ED Clinical Summaryon 2023 ED Clinical Summary [facility] ? Urgent Care [address] [place] [id number] Clinical Summary PERSON INFORMATION Name: LISA RAMOS Age: 58 Years Sex: FEMALE : 1965 MRN: Acct#: Visit Reason: UC - Knee Pain or Swelling; RIGHT KNEE PAIN Arrival: 12/30/2023 16:57:55 Discharge: 12/30/2023 18:30:00 LOS: 000 01:33 Check In: 12/30/2023 16:57:55 Checkout: 12/30/2023 18:30:00 Address: [address] [place] [id number] PCP: SOHAIL IPCKERING JR. PROVIDER INFORMATION Provider Role Assigned Unassigned Linnette Woods RN ED Nurse 12/30/2023 17:01:07 12/30/2023 17:01:17 Linnette Woods RN ED Nurse 12/30/2023 17:01:20 Ana Alfonso RN ED Nurse 12/30/2023 17:08:48 12/30/2023 17:08:50 Ana Alfonso RN ED Nurse 12/30/2023 17:08:56 Kaley Swenson PA-C ED PA 12/30/2023 17:48:36 VITALS INFORMATION Vital Sign Triage Latest Temperature Tympanic Temperature Temporal Artery Pulse Rate O2 Sat 99 % 99 % Respiratory Rate Blood Pressure /82 mmHg /82 mmHg MEDICAL INFORMATION Medications Given: Allergy Information: No known allergies PHYSICIAN DOCUMENTATION DISCHARGE INFORMATION: Discharge Disposition: Home Discharge Location: Home PATIENT EDUCATION INFORMATION Instructions: Acute Knee Pain, Adult; Tendinitis; Pes Anserine Bursitis Follow-Up: With: Address: When: Ethan Tiwari DO [address] [place] [id number] Within 7 to 10 days Comments: Call for follow up appointment With: Address: When: SOHAIL PICKERING JR. [address] [place] [address] [phone] DIAGNOSIS: 1:Pes anserinus tendinitis Patient Understands: Yes - Patient/family/careg iver verbalizes understanding of instructions given Comment: Normal [facility] ED Patient Summaryon 024 ED Patient Summary [facility] ? Urgent Care [address] [place] [id number] PATIENT DISCHARGE INSTRUCTIONS Patient Information Name: LISA RAMOS Age: 58 Years Date of : 1965 Reason For Visit: UC - Knee Pain or Swelling; RIGHT KNEE PAIN Arrival Time: 12/30/2023 16:57:55 Primary Care Physician: SOHAIL PICKERING JR. Attending Physician: Kaley Swenson PA-C Comment: Patient Education With: Address: When: Ethan Tiwari Oliver DO [address] [place] [id number] Within 7 to 10 days Comments: Call for follow up appointment With: Address: When: SOHAIL PICKERING JR. [address] [place] [id number] Acute Knee Pain, Adult Acute knee pain is sudden and may be caused by damage, swelling, or irritation of the muscles and tissues that support the knee. Pain may result from: ? A fall. ? An injury to the knee from twisting motions. ? A hit to the knee. ? Infection. Acute knee pain may go away on its own with time and rest. If it does not, your health care provider may order tests to find the cause of the pain. These may include: ? Imaging tests, such as an X-ray, MRI, CT scan, or ultrasound. ? Joint aspiration. In this test, fluid is removed from the knee and evaluated. ? Arthroscopy. In this test, a lighted tube is inserted into the knee and an image is projected onto a TV screen. ? Biopsy. In this test, a sample of tissue is removed from the body and studied under a microscope. Follow these instructions at home: If you have a knee sleeve or brace: ? Wear the knee sleeve or brace as told by your health care provider. Remove it only as told by your health care provider. ? Loosen it if your toes tingle, become numb, or turn cold and blue. ? Keep it clean. ? If the knee sleeve or brace is not waterproof: ? Do not let it get wet. ? Cover it with a watertight covering when you take a bath or shower. Activity ? Rest your knee. ? Do not do things that cause pain or make pain worse. ? Avoid high-impact activities or exercises, such as running, jumping rope, or doing jumping jacks. ? Work with a physical therapist to make a safe exercise program, as recommended by your health care provider. Do exercises as told by your physical therapist. Managing pain, stiffness, and swelling ? If directed, put ice on the affected knee. To do this: ? If you have a removable knee sleeve or brace, remove it as told by your health care provider. ? Put ice in a plastic bag. ? Place a towel between your skin and the bag. ? Leave the ice on for 20 minutes, 2?3 times a day. ? Remove the ice if your skin turns bright red. This is very important. If you cannot feel pain, heat, or cold, you have a greater risk of damage to the area. ? If directed, use an elastic bandage to put pressure (compression) on your injured knee. This may control swelling, give support, and help with discomfort. ? Raise (elevate) your knee above the level of your heart while you are sitting or lying down. ? Sleep with a pillow under your knee. General instructions ? Take [id number]-[id number] and prescription medicines only as told by your health care provider. ? Do not use any products that contain nicotine or tobacco, such as cigarettes, e-cigarettes, and chewing tobacco. If you need help quitting, ask your health care provider. ? If you are overweight, work with your health care provider and a dietitian to set a weight-loss goal that is healthy and reasonable for you. Extra weight can put pressure on your knee. ? Pay attention to any changes in your symptoms. ? Keep all follow-up visits. This is important. Contact a health care provider if: ? Your knee pain continues, changes, or gets worse. ? You have a fever along with knee pain. ? Your knee feels warm to the touch or is red. ? Your knee yahaira or locks up. Get help right away if: ? Your knee swells, and the swelling becomes worse. ? You cannot move your knee. ? You have severe pain in your knee that cannot be managed with pain medicine. Summary ? Acute knee pain can be caused by a fall, an injury, an infection, or damage, swelling, or irritation of the tissues that support your knee. ? Your health care provider may perform tests to find out the cause of the pain. ? Pay attention to any changes in your symptoms. Relieve your pain with rest, medicines, light activity, and the use of ice. ? Get help right away if your knee swells, you cannot move your knee, or you have severe pain that cannot be managed with medicine. This information is not intended to replace advice given to you by your health care provider. Make sure you discuss any questions you have with your health care provider. Document Revised: 02/20/2021 Document Reviewed: 02/20/2021 Elsevier Patient Education ? 20 (more content not included)... [facility] XR Knee Complete Righton XR Knee Complete Right IMAGES REVIEWED: XR Knee Complete Right COMPARISON: None available. CLINICAL INDICATION: knee pain FINDINGS/IMPRESSION: Unremarkable radiographic appearance of the right knee. Final Dictated by: Kali Wolf MD Dictated DT/TM: 12/30/23 7:04 Signed (Electronic Signature): Kali Wolf MD 12/30/23 7:04 pm Technologist: [facility] BNPon 03-19-2020 Natriuretic peptide B (Bld) [Mass/Vol] pg/mL Normal <=900.0 [facility] Comment on above: Performed By: #### G NEW, CREA, BNP, TSH, ELEC, LIPID, LIVER, BUN #### [facility] [address] [place], [place] [address] Luciana Coe BUNon 03-19-2020 Urea nitrogen [Mass/Vol] 10.0 mg/dL Normal 7.0-17.0 [facility] Comment on above: Performed By: #### G NEW, CREA, BNP, TSH, ELEC, LIPID, LIVER, BUN #### [facility] [address] [place] [address] Luciana Carolin CREATININEon 03-19-2020 Creatinine [Mass/Vol] 0.77 mg/dL Normal 0.52-1.04 [facility] Comment on above: Performed By: #### G NEW, CREA, BNP, TSH, ELEC, LIPID, LIVER, BUN #### [facility] [address] [place] [address] Luciana Carolin Creatinine [Mass/Vol] mg/dL Normal >=60 [facility] Comment on above: Performed By: #### G NEW, CREA, BNP, TSH, ELEC, LIPID, LIVER, BUN #### [facility] [address] [place] [address] Luciana Carolin ELECTROLYTESon 03-19-2020 Anion gap [Moles/Vol] 11.6 mmol/L Normal [facility] Comment on above: Performed By: #### G NEW, CREA, BNP, TSH, ELEC, LIPID, LIVER, BUN #### [facility] [address] [place] [address] Luciana Carolin Chloride [Moles/Vol] 108 mmol/L Critically high 98-107 [facility] Comment on above: Performed By: #### G NEW, CREA, BNP, TSH, ELEC, LIPID, LIVER, BUN #### [facility] [address] [place] [address] Luciana Carolin CO2 [Moles/Vol] 27.5 mmol/L Normal 22.0-30.[address] [facility] Comment on above: Performed By: #### G NEW, CREA, BNP, TSH, ELEC, LIPID, LIVER, BUN #### [facility] [address] [place] [address] Luciana Carolin Potassium [Moles/Vol] 4.1 mmol/L Normal 3.4-5.0 [facility] Comment on above: Performed By: #### G NEW, CREA, BNP, TSH, ELEC, LIPID, LIVER, BUN #### [facility] [address] [place] [address] Luciana Carolin Sodium [Moles/Vol] 143 mmol/L Normal 137-145 The [facility] Comment on above: Performed By: #### G NEW, CREA, BNP, TSH, ELEC, LIPID, LIVER, BUN #### [facility] [address] [place] [address] Luciana Carolin GLUCOSE BLOODon 03-19-2020 Glucose [Mass/Vol] 105 mg/dL Normal 74-106 [facility] Comment on above: Performed By: #### G NEW, CREA, BNP, TSH, ELEC, LIPID, LIVER, BUN #### [facility] [address] [place] [address] Luciana Carolin LIPID PROFILEon 03-19-2020 CHOL-HDL RATIO NORM SEE BELOW Normal [facility] Comment on above: Result Comment: 3.3 - 4.4 LOW RISK 4.4 - 7.1 AVERAGE RISK 7.1 - 11.0 MODERATE RISK >11.0 HIGH RISK Performed By: #### G NEW, CREA, BNP, TSH, ELEC, LIPID, LIVER, BUN #### [facility] [address] [place] [address] Luciana Carolin Cholesterol [Mass/Vol] 213 mg/dL Critically high <=200 [facility] Comment on above: Performed By: #### G NEW, CREA, BNP, TSH, ELEC, LIPID, LIVER, BUN #### [facility] [address] [place] [address] Luciana Carolin Cholesterol in HDL [Mass/Vol] 37 mg/dL Normal [facility] Comment on above: Performed By: #### G NEW, CREA, BNP, TSH, ELEC, LIPID, LIVER, BUN #### [facility] [address] [place] [address] Luciana Carolin Cholesterol in HDL [Mass/Vol] > or = 60 mg/dl - LOW CARDIOVASCULAR RISK <40 mg/dl - HIGH CARDIOVASCULAR RISK Normal [facility] Comment on above: Performed By: #### G NEW, CREA, BNP, TSH, ELEC, LIPID, LIVER, BUN #### [facility] [address] [place] [address] Luciana Carolin Cholesterol in LDL [Mass/Vol] 131.6 mg/dL Normal [facility] Comment on above: Performed By: #### G NEW, CREA, BNP, TSH, ELEC, LIPID, LIVER, BUN #### [facility] [address] [place] [address] Luciana Carolin Cholesterol in LDL [Mass/Vol] SEE BELOW Normal [facility] Comment on above: Result Comment: <100 mg/dl OPTIMAL 100 - 129 mg/dl NEAR OR ABOVE OPTIMAL 130 - 159 mg/dl BORDERLINE HIGH 160 - 189 mg/dl HIGH >190 mg/dl VERY HIGH Performed By: #### G NEW, CREA, BNP, TSH, ELEC, LIPID, LIVER, BUN #### [facility] [address] [place] [address] Luciana Carolin Cholesterol.total/Ch olesterol in HDL [Mass ratio] 5.8 {ratio} Normal [facility] Comment on above: Performed By: #### G NEW, CREA, BNP, TSH, ELEC, LIPID, LIVER, BUN #### [facility] [address] [place] [address] Luciana Carolin Triglyceride [Mass/Vol] 222 mg/dL Critically high <=150 [facility] Comment on above: Performed By: #### G NEW, CREA, BNP, TSH, ELEC, LIPID, LIVER, BUN #### [facility] [address] [place] [address] Luciana Carolin VLDL CALC 44.4 mg/dL Normal [facility] Comment on above: Performed By: #### G NEW, CREA, BNP, TSH, ELEC, LIPID, LIVER, BUN #### [facility] [address] [place] [address] Luicana Carolin LIVER PROFILEon 03-19-2020 Albumin [Mass/Vol] 3.5 g/dL Normal 3.5-5.0 [facility] Comment on above: Performed By: #### G NEW, CREA, BNP, TSH, ELEC, LIPID, LIVER, BUN #### [facility] [address] [place] [address] Luciana Carolin Albumin/Globulin [Mass ratio] 1.0 {ratio} Normal [facility] Comment on above: Performed By: #### G NEW, CREA, BNP, TSH, ELEC, LIPID, LIVER, BUN #### [facility] [address] [place] [address] Luciana Carolin ALP [Catalytic activity/Vol] 67 U/L Normal 38-126 [facility] Comment on above: Performed By: #### G NEW, CREA, BNP, TSH, ELEC, LIPID, LIVER, BUN #### [facility] [address] [place] [address] Luciana Carolin ALT [Catalytic activity/Vol] 32 U/L Normal 9-52 [facility] Comment on above: Performed By: #### G NEW, CREA, BNP, TSH, ELEC, LIPID, LIVER, BUN #### [facility] [address] [place] [address] Luciana Carolin AST [Catalytic activity/Vol] 18 U/L Normal 14-36 [facility] Comment on above: Performed By: #### G NEW, CREA, BNP, TSH, ELEC, LIPID, LIVER, BUN #### [facility] [address] [place] [address] Luciana Carolin BILI, CONJUGATED 0.1 mg/dL Normal 0.0-0.[address] [facility] Comment on above: Performed By: #### G NEW, CREA, BNP, TSH, ELEC, LIPID, LIVER, BUN #### [facility] [address] [place] [address] Luciana Carolin Bilirubin Ql (U) 0.7 mg/dL Normal 0.2-1.[address] [facility] Comment on above: Performed By: #### G NEW, CREA, BNP, TSH, ELEC, LIPID, LIVER, BUN #### [facility] [address] [place] [address] Luciana Carolin Globulin (S) [Mass/Vol] 3.5 g/dL Normal [facility] Comment on above: Performed By: #### G NEW, CREA, BNP, TSH, ELEC, LIPID, LIVER, BUN #### [facility] [address] [place] [address] Luciana Carolin Protein [Mass/Vol] 7.0 g/dL Normal 6.1-8.2 [facility] Comment on above: Performed By: #### G NEW, CREA, BNP, TSH, ELEC, LIPID, LIVER, BUN #### [facility] [address] [place] [id number] Luciana Coe TSHon 03-19-2020 TSH Qn SEE BELOW Normal [facility] Comment on above: Result Comment: <0.3 4 UIU/ml HYPERTHYROID 0.34-5.60 UIU/ml EUTHYROID >5.60 UIU/ml HYPOTHYROID Performed By: #### G NEW, CREA, BNP, TSH, ELEC, LIPID, LIVER, BUN #### [facility] [address] [place] [address] Luciana Coe TSH Qn 2.093 uIU/mL Normal 0.470-4.680 [facility] Comment on above: Performed By: #### G NEW, CREA, BNP, TSH, ELEC, LIPID, LIVER, BUN #### [facility] [address] [place] [address] Luciana Coe Vital Signs Date Time Vital Sign Value Performing Clinician Facility 12-01-2024 08:58-0400 Body height 157.5 cm Cesar Licha DO Work Phone: [facility] 12-01-2024 08:58-0400 Body mass index (BMI) [Ratio] 30.76 kg/m2 Cesar Licha DO Work Phone: [facility] 12-01-2024 08:58-0400 Body weight 76.3 kg Cesar Licha DO Work Phone: [facility] 12-01-2024 08:58-0400 Diastolic blood pressure 82 mm[Hg] Cesar Licha DO Work Phone: [facility] 12-01-2024 08:58-0400 Heart rate 64 /min Cesar Licha DO Work Phone: [facility] 12-01-2024 08:58-0400 SaO2% (BldA) [Mass fraction] 96 % Cesar Licha DO Work Phone: [facility] 12-01-2024 08:58-0400 Systolic blood pressure 122 mm[Hg] Cesar Licha DO Work Phone: [facility] 10-20-2024 10:27-0500 Body height 157.5 cm Cesar Licha DO Work Phone: [facility] 10-20-2024 10:27-0500 Body mass index (BMI) [Ratio] 29.12 kg/m2 Cesar Licha DO Work Phone: [facility] 10-20-2024 10:27-0500 Body weight 72.21 kg Cesar Licha DO Work Phone: [facility] 10-20-2024 10:27-0500 Diastolic blood pressure 84 mm[Hg] Cesar Licha DO Work Phone: [facility] 10-20-2024 10:27-0500 Heart rate 90 /min Cesar Licha DO Work Phone: [facility] 10-20-2024 10:27-0500 SaO2% (BldA) [Mass fraction] 97 % Cesarlewis Hurt DO Work Phone: [facility] 10-20-2024 10:27-0500 Systolic blood pressure 126 mm[Hg] Cesar Licha DO Work Phone: [facility] 08-26-2024 00:30-0500 Diastolic blood pressure 55 mm[Hg] Pedro [facility]quez I, [facility]-26-[facility] 00:30-0500 Heart rate 54 /min Pedro Vasquez I, DO Work Phone: [facility] 08-26-2024 00:30-0500 Respiratory rate 14 /min Pedro Vasquez I, DO Work Phone: [facility] 08-26-2024 00:30-0500 SaO2% (BldA) [Mass fraction] 97 % Pedro Vasquez I, DO Work Phone: [facility] 08-26-2024 00:30-0500 Systolic blood pressure 107 mm[Hg] Pedro Vasquez I, DO Work Phone: [facility] 08-25-2024 22:17-0500 Body temperature 97.7 [degF] Pedro Vasquez I, DO Work Phone: [facility] 08-25-2024 20:55-0500 Body height 157.5 cm Pedro Vasquez I, DO Work Phone: [facility] 08-25-2024 20:55-0500 Body mass index (BMI) [Ratio] 28.35 kg/m2 Pedro Vasquez I, DO Work Phone: [facility] 08-25-2024 20:55-0500 Body weight 70.31 kg Pedro Vasquez I, DO Work Phone: [facility] 10-06-2023 14:55-0500 Body height 160.02 cm Viki Shankar Other [facility] Other 10-06-2023 14:55-0500 Body mass index (BMI) [Ratio] 30.11 kg/m2 Viki Shankar Other [facility] Other 10-06-2023 14:55-0500 Body temperature 98.2 [degF] Viki Shankar Other [facility] Other 10-06-2023 14:55-0500 Body weight 77.11 kg Viki Shankar Other [facility] Other 10-06-2023 14:55-0500 Respiratory rate 18 /min Viki Shankar Other [facility] Other 10-06-2023 14:55-0500 SaO2% (BldA) [Mass fraction] 98 % Viki Shankar Other [facility] Other Encounters Encounter Date Encounter Type Care Provider Facility Start: 12-01-2024 End: 12-01-2024 Bamboo flowsheet Cesar Licha DO Work Phone: [facility] Start: 12-01-2024 End: 12-01-2024 Bamboo flowsheet Cesar Licha DO Work Phone: [facility] Start: 12-01-2024 End: 12-01-2024 Office outpatient visit 25 minutes Cesar Licha DO Work Phone: [facility] Comment on above: Dystonia (Primary Dx ); Muscle spasm; Motor tic disorder (CMS/HCC); Syncope, unspecified syncope type Start: 12-01-2024 End: 12-01-2024 ambulatory CESAR LICHA Not Available Start: 10-20-2024 End: 10-20-2024 Patient encounter procedure Sohail Pickering Work Phone: [facility] [place] Work Phone: Start: 10-20-2024 End: 10-20-2024 ambulatory Sohail Jovanny Fuad ZHONG Work Phone: [facility] Work Phone: Start: 10-20-2024 End: 10-20-2024 Office consultation new/estab patient 60 min Cesar Licha DO Work Phone: [facility] Comment on above: Dystonia (Primary Dx ); Muscle spasm; Syncope, unspecified syncope type Start: 10-20-2024 End: 10-20-2024 ambulatory CESAR LICHA Not Available Start: 08-25-2024 End: 08-26-2024 Emergency department patient visit Pedro Vasquez DO Work Phone: [facility] Comment on above: Vasovagal episode (P rimary Dx) Start: 05-27-2024 End: 05-27-2024 [facility] Start: 04-26-2024 End: 04-26-2024 ambulatory ETHAN TIWARI Not Available Start: 01-29-2024 End: 01-29-2024 ambulatory ETHAN TIWARI Not Available Start: 01-14-2024 End: 01-14-2024 ambulatory ETHAN TIWARI Not Available Start: 01-05-2024 End: 01-05-2024 ambulatory CHRISTINA Casillas APLING Not Available Start: 12-31-2023 End: 12-31-2023 ambulatory CHRISTINA Casillas APLING Not Available Start: 12-30-2023 End: 12-30-2023 ambulatory DAILY Swenson Facility:[facility] Start: 10-06-2023 End: 10-06-2023 ambulatory Viki Shankar Other [employer] Other Start: 10-06-2023 Office outpatient ne w 30 minutes Viki Shankar [facility] Start: 03-19-2020 End: 03-20-2020 Patient encounter procedure SOHAIL PICKERING Facility: Start: 09-23-2018 End: 09-24-2018 Patient encounter procedure DEFAULT PHYSICIAN Facility:[facility] Start: 08-19-2018 End: 08-20-2018 Patient encounter procedure DEFAULT PHYSICIAN Facility:[facility] Procedures Date Procedure Procedure Detail Performing Clinician Start: 08-25-2024 Ct cervical spine w/ o contrast material Rob Bennett MD Work Phone: Start: 08-25-2024 Ct head/brain w/o co ntrast material Rob Bennett MD Work Phone: Start: 08-25-2024 Blood count complete auto&auto difrntl wbc Mansmaureen Vasquez DO Work Phone: Start: 08-25-2024 Ecg routine ecg w/le ast 12 lds w/i&r Rob Bennett MD Work Phone: Start: 08-25-2024 Basic metabolic pane l calcium total Rob Bennett MD Work Phone: Start: 01-13-2023 Mammography Cesar farmer DO Work Phone: Plan of Treatment Date Care Activity Detail Author Start: 11-05-2027 Screening for malign ant neoplasm of cervix [facility] Start: 08-29-2027 Screening for malign ant neoplasm of colon [facility] Start: 01-13-2025 Screening for malign ant neoplasm of breast Breast cancer screen [facility] Start: 12-01-2024 End: 12-01-2024 Patient encounter procedure NEERAJ ZUNIGA Comment on above: Arrived Start: 10-20-2024 End: 10-20-2025 Cobalamin (Vitamin B12) [Mass/volume] in Serum or Plasma Vitamin B12 Lab Routine Dystonia Muscle spasm Expected: 10/20/2024 (Approximate), Expires: 10/20/2025 [facility] Comment on above: Expected: 10/20/2024 (Approximate), Expires: 10/20/2025 Start: 10-20-2024 End: 10-20-2025 Copper, serum Copper, serum Lab Routine Dystonia Muscle spasm Expected: 10/20/2024 (Approximate), Expires: 10/20/2025 [facility] Comment on above: Expected: 10/20/2024 (Approximate), Expires: 10/20/2025 Start: 10-20-2024 End: 10-20-2025 Creatine kinase [Enzymatic activity/volume] in Serum or Plasma CK Lab Routine Dystonia Muscle spasm Expected: 10/20/2024 (Approximate), Expires: 10/20/2025 [facility] Work Phone: Comment on above: Expected: 10/20/2024 (Approximate), Expires: 10/20/2025 Start: 10-20-2024 End: 10-20-2025 Folate [Mass/volume] in Serum or Plasma Folate Lab Routine Dystonia Muscle spasm Expected: 10/20/2024 (Approximate), Expires: 10/20/2025 [facility] Comment on above: Expected: 10/20/2024 (Approximate), Expires: 10/20/2025 Start: 10-20-2024 End: 10-20-2025 Thyrotropin [Units/volume] in Serum or Plasma TSH Lab Routine Dystonia Muscle spasm Expected: 10/20/2024 (Approximate), Expires: 10/20/2025 [facility] Comment on above: Expected: 10/20/2024 (Approximate), Expires: 10/20/2025 Start: 05-22-2024 COVID-19 Vaccine (1 - 2023-24 season) COVID-19 Vaccine ( season) [facility] Start: 05-22-2024 Influenza vaccination Influenza Vacc ine (#1) [facility] Start: 04-21-2024 Influenza vaccination Flu vaccine (# 1) [facility] Start: 01-14-2024 Screening for malign ant neoplasm of breast Mammogram [facility] Start: 01-01-2024 Screening for malign ant neoplasm [facility] Start: 09-21-2023 Annual Wellness Visi t (Medicare Advantage) Annual Wellness Visit (Medicare Advantage) [facility] Start: 2016 Shingles vaccine (1 of 2) Shingles vaccine (1 of 2) [facility] Start: 2011 Screening for malign ant neoplasm of colon [facility] Start: 2006 Lipid panel [facility] Start: 2001 Diabetes screen Diabetes screen [facility] Start: 1996 Screening for malign ant neoplasm of cervix [facility] Start: 1987 Screening for malign ant neoplasm of cervix Pap smear [facility] Start: 1985 DTaP/Tdap/Td vaccine (1 - Tdap) DTaP/Tdap/Td vaccine (1 - Tdap) [facility] Start: 1985 Hepatitis B vaccine (1 of 3 - 19+ 3-dose series) Hepatitis B vaccine (1 of 3 - 19+ 3-dose series) [facility] Start: 1984 Hepatitis C screening Hepatitis C sc reen [facility] Start: 1981 HIV screening [facility] screen [facility] Start: 1978 Depression Screen Depression Screen [facility] Start: 1966 Screening for malign ant neoplasm of colon [facility] EKG 12 Lead EKG 12 Lead ECG STAT 08/25/2024 9:51 PM EST [facility] End: 08-25-2024 SPECIMEN REJECTION [facility] Comment on above: Once for 1 Occurrenc es starting 08/25/2024 until 08/25/2024 Immunizations Immunization Date Immunization Notes Care Provider Cristino frank 05-26-2019 influenza virus vacc ine, unspecified formulation Cesar Hurt DO Work Phone: [facility] Payers Date Payer Category Payer Self-pay 2024 Medicare UHC MEDICARE COM [facility] DUAL COMP PPO SNP [id number] 2024-Present [address] [address] [place] [address] [id number] 2023 Private Health Insurance [id number] 2023 Private Health Insurance [id number] 2022 Private Health Insurance [id number] 1966 Unknown [id number] [id number]. 2.647 1966 Unknown [id number] [id number]. 2.647 1966 Unknown [id number] [id number]. 2.593 1966 Unknown [id number] [id number]. 2.718 1966 Unknown [id number] [id number]. 2.1259 1966 Unknown [id number] [id number]. 2.1259 1966 Unknown [id number] [id number]. 2.1259 1966 Unknown [id number] [id number]. 2.1259 1966 Unknown [id number] 2.16.840.1.604084.3.579. 2.1259 1966 Unknown [id number] [id number]. 2.1259 1966 Unknown [id number] [id number]. 2.1259 1959 Private Health Insurance [id number] Private Health Insurance [employer] [id number] Unknown Unknown [id number] [id number] Social History Date Type Detail Facility Unknown if ever smoked [facility] Other Start: 08-25-2024 End: 12-01-2024 Sex Assigned At [facility] Other Tobacco smoking stat [facility] Tobacco smoking consumption unknown [facility] Start: 08-25-2024 End: 12-01-2024 History of Social function [facility] How often to you hav e a drink containing alcohol? Never [facility] How many standard drinks containing alcohol do you have on a typical day? Patient does not drink [facility] Start: 1965 Sex assigned at Not on file [facility] Start: 04-23-2024 Tobacco smoking status GAIS Ex-smoker [facility] End: 09-21-2009 History of tobacco use Current smoker [facility] End: 09-21-2009 History of tobacco use Cigarette Smoker [facility] Start: 04-23-2024 Tobacco use and exposure Smokeless tobacco non-user [facility] Start: 10-20-2024 End: 12-01-2024 Alcoholic beverage intake Ex-drinker (finding) [facility] Start: 10-21-2024 Sex Female (finding) [facility] Start: 1965 Sex Assigned At Female [facility] Clinical Notes 10-06-2023 to 12-01-2024 Cesar Hurt, - 12/01/2024 9:15 AM EDTCesar Hurt, DO - 10/20/2024 10:30 AM ESTDischarge InstructionsAttachments Note Date & Type Note Facility 12-01-2024 History of Presen t illness Narrative Images from the original note were not included. Chief Complaint Patient presents with dystonia Subjective Lisa Ramos, 59 y.o., female here in follow up for tremors and syncope. Acute Neurological Problem The patient's primary symptoms include near-syncope. This is a recurrent problem. The current episode started more than 1 month ago. The neurological problem developed suddenly. The problem is unchanged. There was facial and left-sided focality noted. Associated symptoms include back pain, headaches and neck pain. Past treatments include acetaminophen, bed rest and position change. The treatment provided mild relief. The patient was shoveling snow for about a half hour. She felt dizzy and fell down. She fell over forward. She is not sure if she passed out or not. That was isolated. She is taking the zanaflex and states this has made her calmer but has not been beneficial with her symptoms. She states that the spasm in her core or twitching in her face has not changed. She states that it is constant now and all day long. Her face will pull back and it affects her speech and her neck tightens up. It is not as severe if she is sitting still. It is affecting her daily life. She feels anxious all the time. Being alone and in the quiet helps. Talking can make it worse. No issues swallowing. She has been going to a chiropractor who is doing some stretches. She is on the neurontin for her back pain. Past Medical History: Diagnosis Date Arthritis Bunion Bursitis of hip Hyperlipidemia (CMS/HCC) Hypothyroid (CMS/HCC) Low back pain Lumbosacral disc disease Tachycardia Past Surgical History: Procedure Laterality Date HYSTERECTOMY Family History Problem Relation Name Age of Onset Osteoporosis Mother Lavonne Scoliosis Maternal Grandmother Olinda Osteoporosis Mother's Sister Ailyn Social History Tobacco Use Smoking status: Former Current packs/day: 0.00 Types: Cigarettes Quit date: 09/21/2009 Years since quittin.2 Smokeless tobacco: Never Substance Use Topics Alcohol use: Not Currently Allergies: Carvedilol, Rosuvastatin, and Salvia officinalis General: No fever or chills HEENT: No nasal congestion or runny nose Pulmonary: No shortness of breath or cough Cardiovascular: No chest pain or palpitations GI: No nausea or vomiting : No dysuria or hematuria Musculoskeletal: No new aches or pains or muscle weakness Infectious: no recurrent fevers or infections Dermatologic: No rashes or skin lesions Neurologic: No new headaches or dizziness Vitals: 12/01/24 0858 BP: 122/82 Pulse: 64 SpO2: 96% Body mass index is 30.76 kg/m . weight: 168 lb 3.2 oz Neurologic exam: General: Normal body habitus, cooperative, pleasant Mental status: Awake, alert to person, place and time. Recent and remote memory are intact. Attention and concentration are normal. Fund of knowledge is appropriate for level of education. HEENT: NC/AT Cranial nerves: CN II: Visual reyes full to confrontation. No loss of vision CN III, IV, : pupils equal round and reactive to light. Extraocular movements intact. No ptosis present. CN V: Facial sensation is normal. CN VII: Full and symmetric facial movement. CN VIII: Hearing is normal CN IX and X: Palate elevates symmetrically. CN XI: Shoulder shrug is normal bilaterally. CN XII: Tongue is midline without atrophy or fasciculation. Speech: Clear and fluent no aphasia or dysarthria Pronator drift: Negative bilateral upper extremity Coordination: Intact, no signs of dysmetria Good finger to nose and rapid alternating movements Sensory: Sensation is intact to light, temperature and vibratory touch throughout four extremities. Pinprick intact in all four extremities. Motor: LUE 5/5 RUE 5/5 LLE 5/5 RLE 5/5 Tone: Physiologic, no tremor, bradykinesia or rigidity Patient is having some dystonic muscle movements with the tightening of her core and back and then a pulling of her lateral anterior cervical muscles up into her jaw which is tugging her mouth back this does affect her voice occurs many times throughout the visit. DTR: Bilateral Biceps 2/4 Bilateral BR 2/4 Bilateral Patellar 2/4 No spasticity Gait: Normal to casual gait Romberg's Negative Review and summary of old records: Assessment/Plan Diagnoses and all orders for this visit: Dystonia - risperiDONE (RisperDAL) 0.5 MG tablet; 1/2-1 po q hs - tiZANidine (Zanaflex) 4 MG tablet; 1/2-1 po q bid Muscle spasm - tiZANidine (Zanaflex) 4 MG tablet; 1/2-1 po q bid Motor tic disorder (CMS/HCC) Syncope, unspecified syncope type 59 year old female with what appears to be a dystonia versus a motor tic of her back up into her neck and face. Cores heaving pulling tight with her cervical and thoracic muscles. Etiology of this is unclear. We did do lab work and it was negative /within normal limits. She had a head CT that was nonacute. We did a trial of Zanaflex and it was not helpful. We will go ahead and do a trial of Risperdal see if that will help. She is on metoprolol for her heart rate which can lower her blood pressure at times so we can not try other blood pressure medicines like clonidine or guanfacine She does at times have some voice tremot. She had a CTA of her neck that was nonacute. Plan Trial of Risperdal 0.5mg 1/2-1 po q hs Copper, TSH, B12, Folate, Ck -> wnl Can stop the Zanaflex 4 mg but can go back on if feels worse off of it 1/2 body weight in ounces of water. Cont with chiropractor Monitor blood pressure Muscle exercises and stretches Submit for botox injections CT head and neck non-acute The diagnosis was all discussed with the patient. All questions were answered and they agreed with the treatment plan. Patient will call if there are any new issues or questions. Pt has been fully educated on their diagnosis, follow up plan, and return instructions Return to clinic: 6-8 weeks documented in this encounter [facility] 10-20-2024 History of Presen t illness Narrative Chief Complaint Patient presents with Tremors Syncope Subjective Lisa Ramos, 59 y.o., female being seen in Neurology consultation at the request of Dr. Pickering. HPI Syncope, tremors - seen @ [facility] referral received from Dr Sohail Pickering DO The patient had been seen by me in the past for headaches. Nothing major was found way back then,. The patient states on 08/25 she was getting a massage and started to feel dizzy. She lost consciousness. When she came to she was sweaty and cold and vomited. She denies any further episodes of passing out. She went to [facility]. She was having issues using her arms and legs and talking at that time. They did some work up and sent her home. She had a CT of the head and neck and it was reportedly non-acute. It was felt to vasovagel. For the past 5 months she has had a feeling of spasm in her core and twitching. Her mother noticed some changes prior to that. She states that it is daily all day and intermittent. Her face will pull back and it affects her speech and her neck tightens up. It is not as severe if she is sitting still. It is affecting her daily life. She feels anxious all the time. It happens all day all every day on and off. Being alone and in the quiet helps. Talking can make it worse. NO issues swallowing. Nothing has been tried for the pulling. Past Medical History: Diagnosis Date Arthritis Bunion Bursitis of hip Hyperlipidemia (CMS/HCC) Hypothyroid (CMS/HCC) Low back pain Lumbosacral disc disease Tachycardia Past Surgical History: Procedure Laterality Date HYSTERECTOMY Family History Problem Relation Name Age of Onset Osteoporosis Mother Lavonne Scoliosis Maternal Grandmother Olinda Osteoporosis Mother's Sister Ailyn Social History Tobacco Use Smoking status: Former Current packs/day: 0.00 Types: Cigarettes Quit date: 09/21/2009 Years since quittin.0 Smokeless tobacco: Never Substance Use Topics Alcohol use: Not Currently Allergies: Carvedilol, Rosuvastatin, and Salvia officinalis General: No fever or chills HEENT: No nasal congestion or runny nose Pulmonary: No shortness of breath or cough Cardiovascular: No chest pain or palpitations GI: No nausea or vomiting : No dysuria or hematuria Musculoskeletal: No new aches or pains or muscle weakness Infectious: no recurrent fevers or infections Dermatologic: No rashes or skin lesions Neurologic: No new headaches or dizziness Vitals: 10/20/24 1027 BP: 126/84 Pulse: 90 SpO2: 97% Body mass index is 29.12 kg/m . weight: 159 lb 3.2 oz Neurologic exam: General: Normal body habitus, cooperative, pleasant Mental status: Awake, alert to person, place and time. Recent and remote memory are intact. Attention and concentration are normal. Fund of knowledge is appropriate for level of education. HEENT: NC/AT Cranial nerves: CN II: Visual reyes full to confrontation. No loss of vision CN III, IV, : pupils equal round and reactive to light. Extraocular movements intact. No ptosis present. CN V: Facial sensation is normal. CN VII: Full and symmetric facial movement. CN VIII: Hearing is normal CN IX and X: Palate elevates symmetrically. CN XI: Shoulder shrug is normal bilaterally. CN XII: Tongue is midline without atrophy or fasciculation. Speech: Clear and fluent no aphasia or dysarthria Pronator drift: Negative bilateral upper extremity Coordination: Intact, no signs of dysmetria Good finger to nose and rapid alternating movements Sensory: Sensation is intact to light, temperature and vibratory touch throughout four extremities. Pinprick intact in all four extremities. Motor: LUE 5/5 RUE 5/5 LLE 5/5 RLE 5/5 Tone: Physiologic, no tremor, bradykinesia or rigidity Patient is having some dystonic muscle movements with the tightening of her core and back and then a pulling of her lateral anterior cervical muscles up into her jaw which is tugging her mouth back this does affect her voice occurs many times throughout the visit. DTR: Bilateral Biceps 2/4 Bilateral BR 2/4 Bilateral Patellar 2/4 No spasticity Gait: Normal to casual gait Romberg's Negative Review and summary of old records: Assessment/Plan Diagnoses and all orders for this visit: Dystonia - tiZANidine (Zanaflex) 4 MG tablet; 1/2-1 po q bid - CK; Future - TSH; Future - Vitamin B12; Future - Folate; Future - Copper, serum; Future Muscle spasm - tiZANidine (Zanaflex) 4 MG tablet; 1/2-1 po q bid - CK; Future - TSH; Future - Vitamin B12; Future - Folate; Future - Copper, serum; Future Syncope, unspecified syncope type 59 year old female with what appears to be a dystonia of her back up into her neck and face. She has pulling of the cervical muscles up into her jaw. This is obvious in the office today. Does affect her voice some. Tugs on her body. It is symmetrical and bilateral. At this time it is most consistent with a dystonia. We will go ahead and do some lab work to look for anything else. She did have a recent head CT that was nonacute as she had a syncopal event that was most likely due to orthostatic hypotension. She had a CTA of her neck that was nonacute. We can consider MRIs however she has no focal or lateralizing findings. We will try her on some Zanaflex and see if this is helpful for her. She was counseled on exercises and relaxation techniques. If that does not work then we will try to get Botox injections approved. Plan Lab work to look for any causes of dystonia Trial of Zanaflex 4 mg can titrate up to 1 twice a day Try some meditation relaxation techniques Muscle exercises and stretches Dependent on how she responds to Zanaflex we may submit her for Botox injections. Monitor for any new syncopal events however it appear to be related to a hypotensive event. ED work up was reviewed. CT head and neck non-acute The diagnosis was all discussed with the patient. All questions were answered and they agreed with the treatment plan. Patient will call if there are any new issues or questions. Pt has been fully educated on their diagnosis, follow up plan, and return instructions Return to clinic: 6-8 weeks documented in this encounter [facility] 08-26-2024 Hospital Discharg e instructions Rob Bennett MD - 08/26/2024 12:57 AM EST Be sure to follow-up with your primary care provider. Return to emergency department for any acutely worsening/any symptoms or any other acute concerns. The following attachments cannot be sent through Care Everywhere.Fainting ([place]kin[place])documented in this encounter [facility] 05-27-2024 Note Cardiology Clinic No te Subjective Lisa Ramos is a 58 y.o. year old female With past medical history of palpitations, sinus tachycardia and hyperlipidemia seen in follow-up. Patient here for 1 year follow up palpitations and hyperlipidemia. She had routine labs with lipid panel in December 2023. Denies chest pain, SOB, and lightheadedness/syncope. Says palpitations are stable. No additional complaints or concerns. Lipid Panel reviewed and is suboptimal. Patient Active Problem List Diagnosis Arthritis Back pain Former smoker High cholesterol Hypothyroid Sacroiliac joint pain Tachycardia Hypertension Family History Problem Relation Name Age of Onset Other (epilepsy) Father Heart attack Maternal Grandfather Social History Tobacco Use Smoking status: Former Types: Cigarettes Quit date: 1999 Years since quittin.8 Smokeless tobacco: Never Substance Use Topics Alcohol use: Not Currently Update: 05/16/2022 Patient adamantly denies any cardiac complaints or concerns at the present time. She denies any chest pain or shortness of breath. She denies any lower extremity edema, orthopnea, paroxysmal nocturnal dyspnea. No near-syncope or syncope. No fluttering. She reports that her tachycardia and palpitations are well controlled on metoprolol, and she denies any issues whatsoever. Update: 04/28/2023 Doing well, has leg cramps that awaken her in the middle of the night Denies claudication symptoms Thinks symptoms may be related to dehydration Palpitations are resolved with use of Metoprolol Denies chest pain, dyspneic symptoms, or palpitations Review of Systems Cardiovascular: Negative for chest pain, claudication, dyspnea on exertion, irregular heartbeat, leg swelling, near-syncope, orthopnea, palpitations, paroxysmal nocturnal dyspnea and syncope. Objective Visit Vitals BP 128/82 (BP Location: Left arm, Patient Position: Sitting) Pulse 64 Ht 1.6 m (5' 3 ) Wt 71.2 kg (157 lb) SpO2 99% BMI 27.81 kg/m??? Smoking Status Former BSA 1.78 m??? Physical Exam General: Awake, alert, NAD Neck: No elevated JVP. No carotid bruit Pulm: Breath sounds clear to ascultation bilaterally with no wheeze, crackles or rhonchi Cards: Regular rate and rhythm with premature beats, S1, S2. No S3 or S4 gallop. Murmur: none Extr: Lower extremity edema: None. DP pulses:2+ Skin: warm, dry, well perfused Neuro: A&Ox3, No gross deficits Allergies Allergies Allergen Reactions Carvedilol Nausea Only Rosuvastatin Nausea Only Medications Current Outpatient Medications: fluvastatin XL (Lescol XL) 80 mg 24 hr tablet, Take 1 tablet every day by oral route for 90 days., Disp: , Rfl: gabapentin (Neurontin) 600 mg tablet, Take by oral route for 90 days., Disp: , Rfl: icosapent ethyL (Vascepa) 1 gram capsule, Take 1 capsule every day by oral route for 90 days., Disp: , Rfl: levothyroxine (Synthroid) 50 mcg tablet, Take 1 tablet every day by oral route for 90 days., Disp: , Rfl: montelukast (Singulair) 10 mg tablet, Take 1 tablet by mouth in the morning., Disp: , Rfl: Vyvanse 50 mg capsule, Take 50 mg by mouth in the morning., Disp: , Rfl: atorvastatin (Lipitor) 80 mg tablet, Take 1 tablet (80 mg) by mouth at bedtime., Disp: 90 tablet, Rfl: 3 ergocalciferol (Vitamin D-2) 1.25 MG (72464 Units) capsule, Take 1 capsule twice a week by oral route for 90 days., Disp: , Rfl: metoprolol succinate XL (Toprol-XL) 50 mg 24 hr tablet, Take 1 tablet (50 mg) by mouth once daily as directed. Do not crush or chew., Disp: 90 tablet, Rfl: 3 Recent Labs 10/15/2021 Sodium 143, potassium 4.2, chloride 105, CO2 24 Imaging and other tests Echocardiogram: 09/23/2018 Global left ventricular systolic function is normal (visually estimated EF 70%) Interventricular septal thickness is increased in the proximal portion No regional wall motion abnormality Normal diastolic function Normal right ventricular systolic function Doppler studies suggest normal right-sided pressures No significant valvular abnormality Holter monitor: 08/19/2018 The patient's average heart rate was 106 bpm. Heart rates greater than 120 bpm were noted 30% of the time. No episodes of bradycardia were noted. No pauses exceeding 2.0 seconds were noted. Ventricular ectopy less than 1%, SVT ectopy less than 1%. Assessment Diagnoses and all orders for this visit: Palpitations - metoprolol succinate XL (Toprol-XL) 50 mg 24 hr tablet; Take 1 tablet (50 mg) by mouth once daily as directed. Do not crush or chew. Hyperlipidemia, unspecified hyperlipidemia type - Comprehensive metabolic panel; Future - atorvastatin (Lipitor) 80 mg tablet; Take 1 tablet (80 mg) by mouth at bedtime. Plan 1. Palpitations -Holter monitor revealed sinus tachycardia with average heart rate of 106. Palpitations well-controlled with metoprolol succinate 50 mg daily. Continue current medication regimen. 2. Mixed hype (more content not included)... [facility] 12-30-2023 Note Patient Education Ma terials Follows: Acute Knee Pain, Adult Acute knee pain is sudden and may be caused by damage, swelling, or irritation of the muscles and tissues that support the knee. Pain may result from: ? A fall. ? An injury to the knee from twisting motions. ? A hit to the knee. ? Infection. Acute knee pain may go away on its own with time and rest. If it does not, your health care provider may order tests to find the cause of the pain. These may include: ? Imaging tests, such as an X-ray, MRI, CT scan, or ultrasound. ? Joint aspiration. In this test, fluid is removed from the knee and evaluated. ? Arthroscopy. In this test, a lighted tube is inserted into the knee and an image is projected onto a TV screen. ? Biopsy. In this test, a sample of tissue is removed from the body and studied under a microscope. Follow these instructions at home: If you have a knee sleeve or brace: ? Wear the knee sleeve or brace as told by your health care provider. Remove it only as told by your health care provider. ? Loosen it if your toes tingle, become numb, or turn cold and blue. ? Keep it clean. ? If the knee sleeve or brace is not waterproof: ? Do not let it get wet. ? Cover it with a watertight covering when you take a bath or shower. Activity ? Rest your knee. ? Do not do things that cause pain or make pain worse. ? Avoid high-impact activities or exercises, such as running, jumping rope, or doing jumping jacks. ? Work with a physical therapist to make a safe exercise program, as recommended by your health care provider. Do exercises as told by your physical therapist. Managing pain, stiffness, and swelling ? If directed, put ice on the affected knee. To do this: ? If you have a removable knee sleeve or brace, remove it as told by your health care provider. ? Put ice in a plastic bag. ? Place a towel between your skin and the bag. ? Leave the ice on for 20 minutes, 2?3 times a day. ? Remove the ice if your skin turns bright red. This is very important. If you cannot feel pain, heat, or cold, you have a greater risk of damage to the area. ? If directed, use an elastic bandage to put pressure (compression) on your injured knee. This may control swelling, give support, and help with discomfort. ? Raise (elevate) your knee above the level of your heart while you are sitting or lying down. ? Sleep with a pillow under your knee. General instructions ? Take pxhz-vqa-zbrjrgn and prescription medicines only as told by your health care provider. ? Do not use any products that contain nicotine or tobacco, such as cigarettes, e-cigarettes, and chewing tobacco. If you need help quitting, ask your health care provider. ? If you are overweight, work with your health care provider and a dietitian to set a weight-loss goal that is healthy and reasonable for you. Extra weight can put pressure on your knee. ? Pay attention to any changes in your symptoms. ? Keep all follow-up visits. This is important. Contact a health care provider if: ? Your knee pain continues, changes, or gets worse. ? You have a fever along with knee pain. ? Your knee feels warm to the touch or is red. ? Your knee yahaira or locks up. Get help right away if: ? Your knee swells, and the swelling becomes worse. ? You cannot move your knee. ? You have severe pain in your knee that cannot be managed with pain medicine. Summary ? Acute knee pain can be caused by a fall, an injury, an infection, or damage, swelling, or irritation of the tissues that support your knee. ? Your health care provider may perform tests to find out the cause of the pain. ? Pay attention to any changes in your symptoms. Relieve your pain with rest, medicines, light activity, and the use of ice. ? Get help right away if your knee swells, you cannot move your knee, or you have severe pain that cannot be managed with medicine. This information is not intended to replace advice given to you by your health care provider. Make sure you discuss any questions you have with your health care provider. Document Revised: 02/20/2021 Document Reviewed: 02/20/2021 [employer] Patient Education ? 2022 [employer] Tendinitis Tendinitis is inflammation of a tendon. A tendon is a strong cord of tissue that connects muscle to bone. Tendinitis can affect any tendon, but it most commonly affects the: ? Shoulder tendon (biceps tendon or rotator cuff). ? Ankle tendon (Achilles tendon). ? Elbow tendons. ? Tendons in the wrist. What are the causes? This condition may be caused by: ? Overusing a tendon or muscle. This is the most common cause. ? Age-related wear and tear. ? Injury. ? Inflammatory conditions, such as arthritis. ? Certain medicines. What increases the risk? You are more likely to develop this condition if you do activities that involve the same mo (more content not included)... [facility] 10-06-2023 Evaluation note Encounter Date Diagnosis Assessment Notes Sep, Acute non-recurrent maxillary sinusitis (ICD-10 - J01.00) Patient declines/refus es COVID testing at this time. Discussed diagnosis with patient. Will today for bacterial sinusitis based on physical exam and duration of symptoms. Take antibiotic as prescribed, complete entire course of therapy even if symptoms resolve. Reviewed allergies and recent antibiotic use with patient. Advised patient to take OTC Mucinex as directed, OTC Flonase. Supportive care as directed, push fluids and rest, Tylenol and/or Motrin as directed for discomfort/fev er, warm moist compress over sinuses several times a day, cool mist humidification , nasal saline spray as directed. Symptoms should improve in the next 3 days, if symptoms persist follow up with PCP. Immediate eval for warning s/sx as discussed. Patient verbalizes understanding and is agreeable to treatment plan BuildOut Other Evaluation note* Diagnosis Vasovagal episode- Primary Syncope and collapse [facility] Dystonia- Primary Abnormal involuntary movements Muscle spasm Spasm of muscle Syncope, unspecified syncope type [facility] noteNo assessment information [facility] Work Phone: Evaluation note* Diagnosis Dystonia- Primary Abnormal involuntary movements Muscle spasm Spasm of muscle Motor tic disorder (CMS/HCC) Tic disorder, unspecified Syncope, unspecified syncope type documented in this encounter [facility] general Narrative - Reported* Type Description Date Medical History HTN Medical History Hypothyroidism Medical History hypercholesterolemia Medical History Rapid Heartbeat Medical History seasonal allergies Surgical History hysterectomy Hospitalization History See Above BuildOut Other Summary Purpose Family History No Family History Records Found Relationship Condition Age at Onset Recorded Date/T conor father Unknown Advance Directives No Advanced Directives Records Found Advance Directive Response Recorded Date/ Time Advance Directives No July 28, 2017 10:03am Chief Complaint and Reason for Visit Chief Complaint Admit Date g24.9 m62.838 October 20, 2024 1 1:40am Additional Source Comments INFORMATION SOURCE (unrecogn ized section and content) DATE CREATED AUTHOR 09/24/2018 [facility] DATE CREATED AUTHOR AUTHOR'S ORGANIZ ATION [facility]09[facility] DATE CREATED AUTHOR AUTHOR'S ORGANIZ ATION 01/28/2024 [facility] DATE CREATED AUTHOR AUTHOR'S ORGANIZ ATION 07/05/2024 [facility] DATE CREATED AUTHOR AUTHOR'S ORGANIZ ATION 10/30/2024 [facility] DATE CREATED AUTHOR AUTHOR'S ORGANIZ ATION 12/04/2024 [facility] EPIC REASON FOR VISIT (unrecogniz ed section and content) Reason Comments Dizziness Reason Comments Tremors Syncope Specialty Diagnoses / Procedures Referred By Contac t Referred To Contact Neurology Diagnoses Syncope and collapse Tremor, unspecified Procedures OR OFFICE/OUTPATIENT [facility] Sohail Pickering MD [address] [place] [address] Phone: tel: fax: Giancarlo Chaparro MD [address] [place] [address] Phone: tel: fax: Referral ID Status Reason Start Date Expiration Date V isits Requested Visits Authorized [id number] Closed Consult and Treat 09/09/2024 03/08/2025 1 1 Reason Comments dystonia Care Teams (unrecognized sec tion and content) Substation Design Draftsperson Relationship Specialty Start Date End Date Sohail Pickering MD [address] [place] [address] [id number] PCP - General Internal Medicine 4/11/24 Team Status: Active Member Role Status Dates Sohail Pickering JR DO Primary Care Provider Active Team Status: Inactive Member Role Status Dates Sohail Pickering JR DO Primary Care Provider Active Start: October 20, 2024 End: October 20, 2024 Cesar Hurt DO Attending Provider Active Sta rt: October 20, 2024 End: October 20, 2024 Substation Design Draftsperson Relationship Specialty Start Date End Date Sohail Pickering MD [address] [place] [address] PCP - General Internal Medicine 12/31/23 Cesar Hurt DO [address] [place] [address] Referring Physician Neurology 12/01/24 Substation Design Draftsperson Relationship Specialty Start Date End Date Sohail Pickering MD [address] [place] [address] PCP - General Internal Medicine 12/31/23 Cesar Hurt DO [address] [place] [address] Referring Physician Neurology 12/01/24 Goals (unrecognized section and content) Goals may be documented in a n alternate section FOR RECORDS PERTAINING TO PATIENTS WHO ARE OR HAVE BEEN ENROLLED IN A CHEMICAL DEPENDENCY/SUBSTANCEABUSE PROGRAM, SOME INFORMATION MAY BE OMITTED. This clinical summary was aggregated from multiple sources. Caution should be exercised in using it in the provision of clinical care. This summary normalizes information from multiple sources, and as a consequence, information in this document may materially change the coding, format and clinical context of patient data. In addition, data may be omitted in some cases. CLINICAL DECISIONS SHOULD BE BASED ON THE PRIMARY CLINICAL RECORDS. [facility]. provides no warranty or guarantee of the accuracy or completeness of information in this document.
[2025-02-08 09:31] LABS: Basophils Percent Auto 0.5 % (0.2-2.0); Eosinophils Absolute Auto 0.1 10^3/uL (0.0-0.7); Eosinophils Percent Auto 1.7 % (0.9-7.0); Hematocrit 44.2 % (36.0-48.0); Hemoglobin 14.7 g/dL (12.0-16.0); Immature Granulocytes Abs Auto 0.01 10^3/uL (0.00-0.03); Immature Granulocytes Pct Auto 0.2 % (0.0-0.5); Lymphocytes Absolute Auto 1.3 10^3/uL (1.2-3.8); Lymphocytes Percent Auto 20.3 % (20.5-60.0); Mean Corpuscular HGB Conc 33.3 g/dL (29.9-35.2); Mean Corpuscular Hemoglobin 29.7 pg (26.7-34.0); Mean Corpuscular Volume 89.3 fL (81.0-99.0); Mean Platelet Volume 11.2 fL (9.5-13.5); Monocytes Absolute Auto 0.4 10^3/uL (0.3-0.8); Monocytes Percent Auto 6.2 % (1.7-12.0); Neutrophils Absolute Auto 4.6 10^3/uL (1.4-6.5); Neutrophils Percent Auto 71.1 % (43.0-75.0); Platelet Count 206 10^3/uL (150-450); Red Blood Count 4.95 10^6/uL (4.20-5.40); Red Cell Distribution Width 12.8 % (11.0-15.0); White Blood Count 6.5 10^3/uL (4.0-11.0)
[2025-02-08 09:37] LABS: Estimated Average Glucose 111 mg/dL; Glycohemoglobin A1C 5.5 % (4.5-6.2)
[2025-02-08 10:19] LABS: Alanine Aminotransferase 19 U/L (14-59); Albumin Globulin Ratio 1.2; Albumin Level 3.5 g/dL (3.4-5.0); Alkaline Phosphatase 73 U/L (46-116); Anion Gap 13.9; Aspartate Amino Transferase 13 U/L (15-37); Bilirubin Direct 0.2 mg/dL (0.0-0.2); Bilirubin Total 1.1 mg/dL (0.2-1.0); Calcium 8.7 mg/dL (8.5-10.1); Carbon Dioxide 29.1 mmol/L (21.0-32.0); Chloride 107 mmol/L (98-107); Chol HDL Ratio 3.5; Cholesterol 187 mg/dL (<=200); Estimated GFR (African America >60 (>=60 mL/min/1.73m^2); Estimated GFR (Non-African Ame >60 (>=60 mL/min/1.73m^2); Globulin 2.9 g/dL; HDL Cholesterol 54 mg/dL (40-60); LDL Cholesterol Calculated 111.6 mg/dL; Sodium 146 mmol/L (136-145); Thyroid Stimulating Hormone 2.006 uIU/mL (0.358-3.740); Total Protein 6.4 g/dL (6.4-8.2); Triglycerides 107 mg/dL (<=150); VLDL CHOLESTEROL 21.4 mg/dL
[2025-02-08 11:27] LABS: Free T4 1.07 ng/dL (0.76-1.46)
== END 2025-02-08 08:54 | disposition home or self-care (01) ==
PROVIDERS: PCP Internal Medicine; Visit Provider Internal Medicine
DX: E78.00 Pure hypercholesterolemia, unspecified (principal); I50.30 Unspecified diastolic (congestive) heart failure; R73.09 Other abnormal glucose; Z79.899 Other long term (current) drug therapy; E03.9 Hypothyroidism, unspecified
CPT/HCPCS: 36415; 80051; 80061; 80076; 82306; 82310; 82565; 83036; 83880; 84439; 84443; 84520; 85025

== ENCOUNTER 2025-05-11 11:20 | Outpatient (OUT) | payer OTHER, SELFPAY ==
--- OUTSIDE RECORDS SUMMARY | 2025-05-11 11:25 | XMS_ITS | Clinical Summary ---
Author Organization [facility] Address [address] [place] [address] Care Team Providers Care Contract Forester Name Role Phone Sohail Merida MD Primary Care Provider [phone] Lyubov Zarate DO Unavailable [phone] Allergies Active Allergy Reactions Criticality Noted Date Comments Carvedilol Nausea Only 04/29/2023 Rosuvastatin Nausea Only 04/29/2023 Salvia Officinalis Unknown 01/14/2024 Medications Synthroid 50 MCG tablet Take 1 tablet every day by oral route for 90 days. Active gabapentin (Neurontin) 600 MG tablet Take by oral route for 90 days. Active metoprolol tartrate (Lopressor) 50 MG tablet 1 (one) time each day at the same time Active montelukast (Singulair) 10 MG tablet Take 1 tablet by mouth Daily Active loratadine (Claritin) 10 MG tablet 1 (one) time each day at the same time Active Icosapent Ethyl (Vascepa) 1 g capsule Take 1 capsule every day by oral route for 90 days. Active fluvastatin XL (Lescol XL) 80 MG 24 hr tablet Take 1 tablet every day by oral route for 90 days. Active ergocalciferol (Vitamin D2) 1.25 MG (21345 UT) capsule 05/05/2023 Active risperiDONE (RisperDAL) 0.5 MG tabletIndicatio ns:Dystonia 1/2-1 po q hs 30 tablet 2 12/01/2024 Active tiZANidine (Zanaflex) 4 MG tabletIndicatio ns:Dystonia,Mus dmitry spasm 1/2-1 po q bid 30 tablet 2 12/01/2024 Active onabotulinumtox Keshia (Botox 200u vial IJ Soln) 200 units injectionIndica tions:Dystonia, Muscle spasm Inject 200 units every 90 days 1 each 01/10/2025 Active Active Problems Problem Noted Date Diagnosed Date Hypertension 01/14/2024 Hypercholesteremia 01/14/2024 Hypothyroid 04/29/2023 Tachycardia 09/02/2018 Family History Medical History Relation Name Comments Scoliosis Maternal Grandmother Olinda Osteoporosis Mother Lavonne Osteoporosis Mother's Sister Ailyn Relation Name Status Comments Maternal Grandmother Olinda Mother Lavonne Mother's Sister Ailyn Social History Tobacco Use Types Packs/Day Years Used Date Smoking Tobacco: Former Cigarettes Q uit: 09/21/2009 Smokeless Tobacco: Never Tobacco Cessation:Counseling Given: Not Answered Alcohol Use Standard Drinks/Week Comments Not Currently 0 (1 standard drink = 0.6 oz pur e alcohol) Comments Unknown Sex and Gender Information Value Date Recorded Sex Assigned at Not on file Legal Sex Female 6:35 PM EDT Gender Identity Not on file Sexual Orientation Not on file Last Filed Vital Signs Vital Sign Reading Time Taken Comments Blood Pressure 122/82 12/01/2024 8:58 AM EDT Pulse 64 12/01/2024 8:58 AM EDT Temperature - - Respiratory Rate - - Oxygen Saturation 96% 12/01/2024 8:58 AM EDT Inhaled Oxygen Concentration - - Weight 76.3 kg (168 lb 3.2 oz) 12/01/2024 8:58 A M EDT Height 157.5 cm (5' 2 ) 12/01/2024 8:58 AM EDT Body Mass Index 30.76 12/01/2024 8:58 AM EDT Plan of Treatment Health Maintenance Due Date Last Done Comments CT Colonography 1966 Colonoscopy 1966 FIT 1966 FOBT 1966 Sigmoidoscopy 1966 Pap Smear 1987 Mammogram 01/14/2024 01/13/2023, 07/0 03/2021, 09/04/2020, Additional history exists Influenza Vaccine (#1) 2025 05/26/2019 Colorectal Cancer Screening 08/29/2027 FIT-DNA 08/29/2027 08/29/2024, 12/31/2020 Cervical Cancer Screening 11/05/2027 HPV/Cotest 11/05/2027 11/05/2022, 08/02/2020 Procedures Procedure Name Priority Date/Time Associated Diagnosis Comments BI MAMMOGRAM SCREENING TOMOSYNTHESIS BILATERAL Routine 01/13/2023 Other specified menopausal and perimenopausal disorders Encounter for screening for malignant neoplasm of vagina Encounter for screening for osteoporosis Encounter for gynecological examination (general) (routine) without abnormal findings Encounter for screening mammogram for malignant neoplasm of breast THINPREP TIS PAP REFLEX HPV MRNA E6/E7 (61064) Routine 11/05/2022 from Last 3 Months or Most Recently Relevant to Health Maintenance Results * Bilateral screening mammogram with tomosynthesis (01/13/2023) Anatomical Region Laterality Modality Breast Bilateral Mammography Impressions 01/13/2023 12:00 AM EDT BIRADS 1 : NEGATIVE, NORMAL INTERVAL FOLLOW UP. 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 Accredited by the ACR and FDA. MAMMOGRAPHY IS VERY IMPORTANT TO YOUR HEALTH. CURRENT [employer]UID[employer] RECOMMENDS ANNUAL MAMMOGRAPHY BEGINNING AT AGE 41. THIS FACILITY USUALLY USES A REMINDER SYSTEM TO ENSURE ALL POSITIONS RECEIVED REMINDER NOTIFICATIONS AT THE TIME BASED ON THE RECOMMENDATIONS OF THIS EXAM. Report reported and signed by Giancarlo Bustillo on 01/14/2023 1205 Narrative 01/13/2023 12:00 AM EDT PERFORMED AT [facility] LOCATION:[place] [address] CLINICAL HISTORY: Screening Mammogram COMPARISON: 09/04/2020, 08/03/2018, and 07/30/2017. TECHNIQUE: 2D and 3D Tomosynthesis of the right and left breasts was performed. FINDINGS: DENSITY: Scattered fibroglandular densities. There are no suspicious masses, areas of suspicious microcalcifications or areas of architectural distortion identified. No evidence of skin thickening. Procedure Note CONVERSION, GENERIC - 03/27/2023 PERFORMED AT [facility] LOCATION:[place] [address] CLINICAL HISTORY: Screening Mammogram COMPARISON: 09/04/2020, 08/03/2018, and 07/30/2017. TECHNIQUE: 2D and 3D Tomosynthesis of the right and left breasts wasperformed. FINDINGS: DENSITY: Scattered fibroglandular densities. There are no suspicious masses, areas of suspicious microcalcifications orareas of architectural distortion identified. No evidence of skin thickening. IMPRESSION: BIRADS 1 : NEGATIVE, NORMAL INTERVAL FOLLOW UP. 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 Accredited by the ACR and FDA. MAMMOGRAPHY IS VERY IMPORTANT TO YOUR HEALTH. [employer]RENT [employer] G[employer] RECOMMENDS ANNUAL MAMMOGRAPHY BEGINNING AT AGE 41. THIS FACILITY USUALLY USES A REMINDER SYSTEM TO ENSURE ALL POSITIONSRECEIVED REMINDER NOTIFICATIONS AT THE TIME BASED ON THE RECOMMENDATIONS OF THIS EXAM. Report reported and signed by Giancarlo Bustillo on 01/14/2023 1205 us Grace Arita DO IMG BI PROCEDURES Final Res ult * THINPREP TIS PAP REFLEX HPV MRNA E6/E7 (43220) (11/05/2022) CLINICAL INFORMATION: Hysterectomy [facility] LMP: NONE GIVEN [facility] PREV. PAP: 08/02/2020 [facility] BX: NONE GIVEN [facility] SOURCE: Vagina [facility] STATEMENT OF ADEQUACY: SATISFACTORY FOR EVALUATION [facility] INTERPRETATION /RESULT: Negative for intraepithelial lesion or malignancy. [facility] COMMENT: This Pap test has been evaluated with computer assisted technology. [facility] CYTOTECHNOLOGI ST: SEE COMMENT [facility] Comment: EMP, CT(ASCP) CT screening location: [facility], [address] [place] [address]. COMMENT SEE COMMENT [facility] Comment: EXPLANATORY NOTE: The Pap is a screening test for cervical cancer. It is not a diagnostic test and is subject to false negative and false positive results. It is most reliable when a satisfactory sample, regularly obtained, is submitted with relevant clinical findings and history, and when the Pap result is evaluated along with historic and current clinical information. 11/05/2022 us Grace Arita DO [facility] Final Resul t [facility] from Last 3 Months or Most Recently Relevant to Health Maintenance Insurance [facility] Care Teams Contract Forester Relationship Specialty Start Date End Date Sohail Merida MD [facility] [place] [address] PCP - General Internal Medicine 12/31/23 Lyubov Zarate DO [address] [place] [address] Referring Physician Neurology 12/01/24
--- OUTSIDE RECORDS SUMMARY | 2025-05-11 11:25 | XMS_ITS | Clinical Summary ---
Author Organization [facility] Address [address] [place] [address] Care Team Providers Care Farmworker Livestock Name Role Phone Sohail Merida MD Primary Care Provider [phone] Allergies Active Allergy Reactions Criticality Noted Date Comments Carvedilol Nausea Only 04/29/2023 Rosuvastatin Nausea Only 04/29/2023 Medications ergocalciferol (Vitamin D-2) 1.25 MG (54215 Units) capsule Take 1 capsule twice a week by oral route for 90 days. Active fluvastatin XL (Lescol XL) 80 mg 24 hr tablet Take 1 tablet every day by oral route for 90 days. Active gabapentin (Neurontin) 600 mg tablet Take by oral route for 90 days. Active icosapent ethyL (Vascepa) 1 gram capsule Take 1 capsule every day by oral route for 90 days. Active levothyroxine (Synthroid) 50 mcg tablet Take 1 tablet every day by oral route for 90 days. Active montelukast (Singulair) 10 mg tablet Take 1 tablet by mouth in the morning. Active Vyvanse 50 mg capsule Take 50 mg by mouth in the morning. 3 Active metoprolol succinate XL (Toprol-XL) 50 mg 24 hr tabletIndications:P alpitations Take 1 tablet (50 mg) by mouth once daily as directed. Do not crush or chew. 90 tablet 3 4 Active atorvastatin (Lipitor) 80 mg tabletIndications:H yperlipidemia, unspecified hyperlipidemia type Take 1 tablet (80 mg) by mouth at bedtime. 90 tablet 3 4 05/27/20 25 Active Active Problems Problem Noted Date Diagnosed Date Hypertension 01/14/2024 Arthritis 04/29/2023 04/29/2023 Back pain 04/29/2023 04/29/2023 Former smoker 04/29/2023 04/29/2023 High cholesterol 04/29/2023 04/29/2023 Hypothyroid 04/29/2023 04/29/2023 Tachycardia 09/02/2018 04/29/2023 Sacroiliac joint pain 07/24/2016 04/29/2023 Family History Medical History Relation Name Comments epilepsy Father Heart attack Maternal Grandfather Relation Name Status Comments Father Maternal Grandfather Social History Tobacco Use Types Packs/Day Years Used Date Smoking Tobacco: Former Cigarettes Q uit: 1999 Smokeless Tobacco: Never Tobacco Cessation:Counseling Given: Not Answered Alcohol Use Standard Drinks/Week Comments Not Currently 0 (1 standard drink = 0.6 oz pur e alcohol) [place] Safety & Environment Answer Date Rec orded Fear of Current or Ex-Partner Not on file Emotionally Abused Not on file 11/12/2023 Physically Abused Not on file 11/12/2023 Sexually Abused Not on file 11/12/2023 Physically or Sexually Abused Not on file Comments Unknown Sex and Gender Information Value Date Recorded Sex Assigned at Not on file Legal Sex Female 12:10 AM EDT Gender Identity Not on file Sexual Orientation Not on file Last Filed Vital Signs Vital Sign Reading Time Taken Comments Blood Pressure 128/82 05/27/2024 11:56 AM EDT Pulse 64 05/27/2024 11:56 AM EDT Temperature - - Respiratory Rate - - Oxygen Saturation 99% 05/27/2024 11:56 AM EDT Inhaled Oxygen Concentration - - Weight 71.2 kg (157 lb) 05/27/2024 11:56 AM EDT Height 160 cm (5' 3 ) 05/27/2024 11:56 AM EDT Body Mass Index 27.81 05/27/2024 11:56 AM EDT Plan of Treatment Health Maintenance Due Date Last Done Comments CT Colonography 1966 Colonoscopy 1966 FOBT 1966 Sigmoidoscopy 1966 Depression Screening 1978 Hepatitis B Vaccines (1 of 3 - 19+ 3-dose series) 1985 Pap Smear 1987 Adult Tetanus 1988 Cervical Cancer Screening 1996 HPV/Cotest 1996 Zoster Vaccines (1 of 2) 2016 COVID-19 Vaccine (3 2023-2 5 season) 2024 02/11/2021, 01/21/2021 Mammogram 01/13/2025 01/13/2023 Influenza Vaccine (#1) 2025 05/26/2019 FIT 08/29/2025 08/29/2024 Colorectal Cancer Screening 08/29/2027 FIT-DNA 08/29/2027 08/29/2024 HIB Vaccines Aged Out No longer eligi ble based on patient's age to complete this topic HPV Vaccines Aged Out No longer eligi ble based on patient's age to complete this topic IPV Vaccines Aged Out No longer eligi ble based on patient's age to complete this topic Meningococcal B Vaccine Aged Out No l onger eligible based on patient's age to complete this topic Meningococcal Vaccine Aged Out No ananda daniel eligible based on patient's age to complete this topic Pneumococcal Vaccine: Pediatrics (0 to 5 Years) and At-Risk Patients (6 to 64 Years) Aged Out No longer eligible b ased on patient's age to complete this topic Rotavirus Vaccines Aged Out No longer eligible based on patient's age to complete this topic Insurance [facility] Care Teams Farmworker Livestock Relationship Specialty Start Date End Date Sohail Merida MD [facility] [place] [phone] PCP - General 04/27/23
--- OUTSIDE RECORDS SUMMARY | 2025-05-11 11:25 | XMS_ITS | Clinical Summary ---
Author Organization [employer] [facility] tem Address [id number] [address] [place] [address] Care Team Providers Care Pole Cutter Name Role Phone Fuad Wiggins DO, Charles L Primary Care Provider Social History Tobacco Use Types Packs/Day Years Used Date Smoking Tobacco: Never Assessed Childcare Answer Date Recorded Childcare Unknown 03/02/2019 Employment Answer Date Recorded Employment Unknown 03/02/2019 Purpose - Life Answer Date Recorded Purpose and direction in life Unknown Comments Unknown Sex and Gender Information Value Date Recorded Sex Assigned at Not on file Legal Sex Female 11:36 AM EDT Gender Identity Not on file Sexual Orientation Not on file Plan of Treatment Not on file Medical Devices Not on file Insurance [employer] Care Teams Pole Cutter Relationship Specialty Start Date End Date Sohail Merida Jr., DO [address] [place] [id number] PCP - General Internal Medicine 04/14/17
--- OUTSIDE RECORDS SUMMARY | 2025-05-11 11:25 | XMS_ITS | Clinical Summary ---
Author Organization [facility] Address [address] [place] [id number] Care Team Providers Care Optometrist Assistant Name Role Phone Fuad Wiggins DO, [facility] Allergies No known active allergies Medications levothyroxine (SYNTHROID) 50 mcg tablet Take 50 mcg by mouth daily before breakfast. Active fluvastatin XL (LESCOL XL) 80 mg 24 hr tablet Take 80 mg by mouth once daily. Active CHOLECALCIFERO L, VITAMIN D3, (CHOLECALCIFER OL, VIT D3,,BULK, MISC) Active IBUPROFEN (MOTRIN ORAL) Take by mouth. Active ACETAMINOPHEN (TYLENOL ORAL) Take by mouth. Active metoprolol tartrate, short acting, (LOPRESSOR) 25 mg tablet Take 25 mg by mouth once daily. Active gabapentin (NEURONTIN) 600 mg tablet Take 600 mg by mouth three times a day. Active ezetimibe (ZETIA) 10 mg tablet Take 10 mg by mouth every other day. 5 Active tiZANidine (ZANAFLEX) 2 mg tabletIndicati ons:Dystonia Take 1-2 tablets every 6 hours as needed for spasms 120 tablet 2 5 Active DOCOSAHEXANOIC ACID/EPA (FISH OIL ORAL) Take by mouth. 05/09/20 25 Discontinued cyclobenzaprin e (FLEXERIL) 10 mg tablet Take 10 mg by mouth three times daily as needed. 05/09/20 25 Discontinued CALCIUM ORAL Take by mouth. 05/09/20 25 Discontinued Active Problems Problem Noted Date Diagnosed Date Sacroiliac joint pain 07/24/2016 Arthritis High cholesterol Back pain Former smoker Hypothyroid Encounters Date Type Department Care Team Description 05/09/2025 2:00 PM EDT Office Visit Neurology [address] [address] Mis Gandhi MD Dystonia (Primary Dx); Obsessive-compulsive disorder, unspecified type; Attention deficit hyperactivity disorder (ADHD), unspecified ADHD type from Last 3 Months Family History Medical History Relation Comments Blood Disease Brother Alcohol abuse Father Seizures Father Stroke Father Heart Failure Maternal Grandfather Arthritis Maternal Grandmother Diabetes Maternal Grandmother Arthritis Mother Hypertension Mother Stroke Paternal Grandfather Cancer Paternal Grandmother Hypertension Sister Relation Status Comments Brother Father Maternal Grandfather Maternal Grandmother Mother Paternal Grandfather Paternal Grandmother Sister Social History Tobacco Use Types Packs/Day Years Used Date Smoking Tobacco: Former Cigarettes 1 17 Tobacco Cessation:Counseling Given: Not Answered Alcohol Use Standard Drinks/Week Comments No 0 (1 standard drink = 0.6 oz pur e alcohol) PHQ-2 Answer Date Recorded PHQ-2 score 0 05/08/2025 Area Deprivation Index Answer Date Victoriano rded National Score (1-100), lower number is lower ri sk 63 05/09/2025 State Score (1-10), lower number is lower risk 4 05/09/2025 Data from: https://www.neighborhoodatlas.medicine.[facility].edu/. 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 Not on file Not on fi le Last Filed Vital Signs Vital Sign Reading Time Taken Comments Blood Pressure 124/65 07/24/2016 2:05 PM EDT Pulse 112 07/24/2016 2:05 PM EDT Temperature - - Respiratory Rate 20 07/24/2016 2:05 PM EDT Oxygen Saturation 100% 05/09/2025 1:5 4 PM EDT Inhaled Oxygen Concentration - - Weight 75.6 kg (166 lb 10.7 oz) 05/09/2025 1:54 PM EDT Height 160 cm (5' 3 ) 07/24/2016 2:05 PM EDT self report ht/wt Body Mass Index 29.52 07/24/2016 2:05 PM EDT Plan of Treatment Upcoming Encounters Date Type Department Care Team ([facility] st Contact Info) Description 06/22/2025 3:00 PM EDT Office Visit Neurology [address] [facility] [address] [place] [address] Mis Gandhi MD [address] [facility] [address] [place] [address] Botox 200 units every 12 weeks Health Maintenance Due Date Last Done Comments Annual PCP Team Chronic Dise ase Visit 1984 Anxiety Screening 1984 Depression Screening 1984 HIV Screening 1984 Hepatitis C Screening 1984 DTaP,Tdap,Td Vaccine (1 - Tdap) 1985 Hepatitis B Vaccine (1 of 3 - 19+ 3-dose series) 1985 Cervical Cancer Screening 1987 CT Colonography 2011 Colonoscopy 2011 Fecal Occult Blood 2011 Lipid Screening 2011 Sigmoidoscopy 2011 Pneumococcal Vaccine: 50+ (1 of 1 - PCV) 2016 Shingrix Vaccine (1 of 2) 2016 Mammogram Screening 01/14/2024 01/13/2023, 01/13/2023, 09/04/2020, Additional history exists Influenza Vaccine (#1) 2025 05/26/2019 Diabetes Screening 08/25/2027 08/25/2024 Cologuard (FIT-DNA) 08/29/2027 08/29/2024, Colorectal Cancer Screening 08/29/2027 Insurance [facility] [employer] PPO Care Teams Optometrist Assistant Relationship Specialty Start Date End Date Sohail Merida Jr., [address] [place] [address] [place] [id number] PCP - General Internal Medicine 04/17/16
--- OUTSIDE RECORDS SUMMARY | 2025-05-11 11:25 | XMS_ITS | Clinical Summary ---
Author Organization [facility] 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 Never 08/25/2024 Q2: How many drinks containi ng alcohol do you have on a typical day when you are drinking? Patient does not drink Q3: How often do you have si x or more drinks on one occasion? Never 08/25/2024 Interpersonal Safety Domain Source: IP Abuse Scr eening Answer Date Recorded Physical abuse Denies 08/25/2024 Verbal abuse Denies 08/25/2024 Emotional abuse Denies 08/25/2024 Financial abuse Denies 08/25/2024 Sexual abuse Denies 08/25/2024 Comments Unknown Sex and Gender Information Value Date Recorded Sex Assigned at Not on file Legal Sex Female 11:38 AM EST Gender Identity Not on file Sexual Orientation Not on file Last Filed Vital Signs Vital Sign Reading Time Taken Comments Blood Pressure 107/55 08/26/2024 12:30 AM EST Pulse 54 08/26/2024 12:30 AM EST Temperature 36.5 C (97.7 F) 08/25/2024 10:17 PM EST Respiratory Rate 14 08/26/2024 12:30 AM EST Oxygen Saturation 97% 08/26/2024 12:30 AM EST Inhaled Oxygen Concentration - - Weight 70.3 kg (155 lb) 08/25/2024 8:55 PM EST Height 157.5 cm (5' 2 ) 08/25/2024 8:55 PM EST Body Mass Index 28.35 08/25/2024 8:55 PM EST Plan of Treatment Health Maintenance Due Date Last Done Comments Depression Screen 1978 HIV screen 1981 Hepatitis C screen 1984 DTaP/Tdap/Td vaccine (1 - Tdap) 1985 Hepatitis B vaccine (1 of 3 - 19+ 3-dose series) 1985 Pap smear 1987 Cervical cancer screen 1996 HPV (without or with Pap) 1996 Diabetes screen 2001 Lipids 2006 Colonoscopy 2011 FIT/FOBT: Average risk 2011 Sigmoidoscopy/CT colonography 2011 Pneumococcal 50+ years Vaccine (1 of 1 - PCV) 2016 Shingles vaccine (1 of 2) 2016 Colorectal Cancer Screen 01/01/2024 Fecal-DNA (Cologuard): Average risk 01/01/2024 12/31/2020 COVID-19 Vaccine ( - season) 2024 Annual Wellness Visit (Medicare Advantage) 09/21/2024 Breast cancer screen 01/13/2025 01/13/2023, 03/27/2021, 09/04/2020, Additional history exists Flu vaccine (#1) 04/21/2025 Hepatitis A vaccine Aged Out No longe r eligible based on patient's age to complete this topic Hib vaccine Aged Out No longer eligi ble based on patient's age to complete this topic Meningococcal (ACWY) vaccine Aged Out No longer eligible based on patient's age to complete this topic Meningococcal B vaccine Aged Out No l onger eligible based on patient's age to complete this topic Polio vaccine Aged Out No longer elig ible based on patient's age to complete this topic Insurance [employer]ARE [facility] [address]
--- OUTSIDE RECORDS SUMMARY | 2025-05-11 11:27 | XMS_ITS | CCD ---
Author Organization [facility] Care Team Providers Care Irrigation Worker Name Role Phone PHYSICIAN, DEFAULT Unavailable Unavailable [...] Provider UnavailSohail Rod MD Primary Care Provider [phone] Sohail Pickering JR Primary Care Provider Cesar Hurt DO Attending Provider Sohail Pickering Primary Care Unavailable Cesar Hurt Attending Unavailable Cesar Hurt Admitting Unavailable Cesar Hurt DO Unavailable CESAR HURT Attending Unavailable SOHAIL PICKERING Referring Unavailable CESAR HURT Attending Unavailable CHRISTINA PIZANO Attending Unavailable CHRISTINA PIZANO Referring Unavailable ETHAN TIWARI Attending Unavailable ETHAN TIWARI Attending Unavailable ETHAN TIWARI Attending Unavailable Fuad Wiggins DO, Charles Lewis Primary Care Provi carrington CHRISTOFER GANDHI Attending Unavailable SOHAIL PICKERING JR Primary Care Unavail able Allergies Allergy Classification Reported Allergen(s) Allergy Type Date of Onset Reaction(s) Facility (6 sources) carvedilol; Translations: [CARVEDILOL] Drug Allergy 3 Nausea Only [facility] (6 sources) rosuvastatin; Translations: [ROSUVASTATIN] Drug Allergy 3 Nausea Only [facility] (5 sources) Salvia Officinalis Propensity to adverse reactions 4 Unknown [facility] Medications Current Medications Medication Drug Class(es) Dates Sig (Normalized) Sig (Original) Acetaminophen (1 source) ACETAMINOPHEN (TYLENOL ORAL) Take by mouth. Active amoxicillin 875 mg / clavulanate 125 mg oral tablet (1 source) Penicillin-class Antibacterial Start: 10-06-2023 take 1 tablet by mouth every twelve hours Amoxicillin-Pot Clavulanate 875-125 MG 1 tablet Orally every 12 hrs for 10 Sep, Active CHOLECALCIFEROL, VITAMIN D3, (CHOLECALCIFEROL, VIT D3,,BULK, MISC) (1 source) CHOLECALCIFEROL, VITAMIN D3, (CHOLECALCIFEROL, VIT D3,,BULK, MISC) Active ergocalciferol 1.25 mg oral capsule (5 sources) Provitamin D2 Compound Start: 05-05-2023 ergocalciferol (Vitamin D2) 1.25 MG (57069 UT) capsule 05/05/2023 Active ezetimibe 10 mg oral tablet (1 source) Dietary Cholesterol Absorption Inhibitor Start: 03-02-2025 take 1 tablet by mouth every other day ezetimibe (ZETIA) 10 mg tablet Take 10 mg by mouth every other day. 03/02/2025 Active 24 hr fluvastatin 80 mg extended release oral tablet (7 sources) HMG-CoA Reductase Inhibitor take 1 tablet by mouth once daily, then take 1 tablet by mouth every twenty-four hours fluvastatin XL (LESCOL XL) 80 mg 24 hr tablet Take 80 mg by mouth once daily. Active Lescol XL Active gabapentin 600 mg oral tablet (6 sources) Anti-epileptic Agent take 1 tablet by mouth three times daily gabapentin (NEURONTIN) 600 mg tablet Take 600 mg by mouth three times a day. Active Ibuprofen (1 source) Nonsteroidal Anti-inflammatory Drug IBUPROFEN (MOTRIN ORAL) Take by mouth. Active icosapent ethyl 1000 mg oral capsule (6 sources) Icosapent Ethyl (Vascepa) 1 g capsule Take 1 capsule every day by oral route for 90 days. Active Vascepa Active levothyroxine sodium 0.05 mg oral tablet (7 sources) l-Thyroxine take 1 tablet by mouth once daily before breakfast levothyroxine (SYNTHROID) 50 mcg tablet Take 50 mcg by mouth daily before breakfast. Active Synthroid Active lisdexamfetamine dimesylate 40 mg oral capsule (6 sources) Central Nervous System Stimulant End: 12-01-2024 take 1 capsule by mouth once daily Vyvanse 40 MG capsule Take 1 capsule by mouth Daily 12/01/2024 Discontinued Vyvanse Active loratadine 10 mg oral tablet (5 sources) loratadine (Clar itin) 10 MG tablet 1 (one) time each day at the same time Active metoprolol tartrate 25 mg oral tablet (8 sources) beta-Adrenergic Kellee take 1 tablet by mouth once daily metoprolol tartrate, short acting, (LOPRESSOR) 25 mg tablet Take 25 mg by mouth once daily. Active metoprolol tartr ate (Lopressor) 50 MG tablet 1 (one) time [...] hs 30 tablet 2 12/01/2024 Active tiZANidine 2 mg oral tablet (8 sources) Central alpha-2 Adrenergic Agonist Start: 05-09-2025 tiZANidine (ZANAFLEX ) 2 mg tablet Indications: Dystonia Take 1-2 tablets every 6 hours as needed for spasms 120 tablet 2 05/09/2025 Active Start: 12-01-2024 tiZANidine (Za naflex) 4 [...] Drug Class(es) Dates Sig (Normalized) Sig (Original) Calcium (1 source) Phosphate Binder, Calcium End: 05-09-2025 CALCIUM ORAL Take by mouth. 05/09/2025 Discontinued cyclobenzaprine hydrochloride 10 mg oral tablet (2 sources) Muscle Relaxant End: 05-09-2025 take 1 tablet by mouth every eight hours as needed cyclobenzaprine (FLEXERIL) 10 mg tablet Take 10 mg by mouth three times daily as needed. 05/09/2025 Discontinued Flexeril Not-Onur ing/PRN DOCOSAHEXANOIC ACID/EPA (FISH OIL ORAL) (1 source) End: 05-09-2025 DOCOSAHEXANOIC ACID/EPA (FISH OIL ORAL) Take by mouth. 05/09/2025 Discontinued fluconazole 150 mg oral tablet (1 source) Azole Antifungal take 1 tablet by mouth once as needed Diflucan 150 MG 1 tablet Orally once for 1 days Not-Taking/PRN nystatin [id number] unt/ml topical cream (1 source) Polyene Antifungal Start: 12-11-2019 Nystatin 370663 UNIT/GM 1 application Externally Twice a day for 5 days Nov, Not-Taking/PRN Problems Active Problems Problem Classification Problem Date Documented Da te Episodic/Chronic Anxiety disorders (3 sources) Obsessive-compulsive disorder; Translations: [Obsessive-compulsiv e disorder, unspecified] 05-09-2025 Chronic Attention-deficit, conduct, and disruptive behavior disorders (3 sources) Attention deficit hyperactivity disorder; Translations: [Attention-deficit hyperactivity disorder, unspecified type] 05-09-2025 Chronic Congestive heart failure; nonhypertensive (1 source) Chronic diastolic (congestive) heart failure; Translations: [CHRONIC DIASTOLIC HEART FAILURE] Onset: 03-20-2020 Chronic Disorders of lipid metabolism (12 sources) Mixed hyperlipidemia; Translations: [Hyperlipidemia, unspecified] Onset: 03-19-2020 Chronic Disorders usually diagnosed in infancy, childhood, or adolescence (2 sources) Motor tic disorder; Translations: [Other tic disorders] 12-01-2024 Chronic Essential hypertension (5 sources) Hypertensive disorder; Translations: [Essential (primary) hypertension] Onset: 01-14-2024 01-14-2024 Chronic Nutritional deficiencies (1 source) Vitamin D deficiency, unspecified; Translations: [VITAMIN D DEFICIENCY UNSPECIFIED] Onset: 03-20-2020 Chronic Osteoarthritis (1 source) Arthritis; Translations: [Unspecified osteoarthritis, unspecified site] 05-13-2016 Chronic Other aftercare (1 source) Other long term care administrator (current) drug therapy; Translations: [OTH SUPERVISOR LIME CURRENT DRUG THERAPY] Onset: 03-20-2020 Episodic Other connective tissue disease (4 sources) Spasm; Translations: [Other muscle spasm] 10-20-2024 Episodic Other hereditary and degenerative nervous system conditions (7 sources) Dystonia; Translations: [Dystonia, unspecified] 10-20-2024 Chronic Other hereditary and degenerative nervous system conditions (1 source) Dystonia, unspecified; Translations: [Dystonia, unspecified] Onset: 10-20-2024 Chronic Other upper respiratory infections (1 source) Acute maxillary sinusitis, unspecified Episodic Screening and history of mental health and substance abuse codes (1 source) Ex-smoker; Translations: [Personal history of nicotine dependence] 05-13-2016 Episodic Spondylosis; intervertebral disc disorders; other back problems (2 sources) Backache; Translations: [Dorsalgia, unspecified] Onset: 07-24-2016 05-13-2016 Episodic Syncope (5 sources) Vasovagal syncope; Translations: [Syncope and collapse] 08-26-2024 Episodic Thyroid disorders (7 sources) Hypothyroidism, unspecified; Translations: [Hypothyroidism] Onset: 03-20-2020 01-14-2024 Chronic Past or Other Problems Problem Classification Problem Date Documented Da te Episodic/Chronic Cardiac dysrhythmias (7 sources) Palpitations; Translations: [Tachycardia] Onset: 09-02-2018 Episodic Results Test Name Value Interpretation Reference Range Facility [facility] 05-09-2025 CNOV Office Visit (NRMDN) LISA RAMOS ([id number]) 1965 F Date Time Provider Department 05/09/25 2:00 PM CHRISTOFER GANDHIN During your visit today, we recorded the following information about you: Weight 75.6 kg Christofer Gandhi MD 05/09/2025 6:41 PM Signed [facility] - NEW PATIENT EVALUATION Recording using MD Revolution software for draft documentation of the visit was discussed with the patient/authorized international account representative; all questions welcomed and answered. Patient/authorized international account representative agreed to proceed Primary Movement Disorders Neurologist: Christofer Gandhi MD Primary Movement Disorders KAVYA: Patient not appropriate for KAVYA Primary Care Provider: Sohail Pickering Jr, DO [facility] [place] [id number] Dear Sohail Pickering Jr, DO: I had the pleasure of evaluating Mrs. Ramos in our clinic today. As you know she is a 59 year old right-handed female who presents for evaluation of abnormal dyskinetic/dystonic movements since 2023. Subjective HISTORY OF PRESENT ILLNESS: Lisa Ramos is a 59-year-old female presenting for evaluation of involuntary movements and neck stiffness. She is accompanied by her mother and , who provide additional history. Lisa reports that her symptoms began in May with a kink in her neck, which has progressively worsened, leading to difficulty turning her neck. She describes the sensation as starting in her core and moving upward like a roller coaster through her body. Initially, the movements were confined to the left side but have since spread to the right side and closer to her throat. She also experiences tremors in her lips and tongue. She notes that the movements worsen with agitation and cold temperatures, stating, I can't even get cold now. The movements are more pronounced when lying flat and speaking but are less noticeable when sitting up and quiet. She reports difficulty swallowing both liquids and solids, sometimes needing to turn her head to swallow. She has not seen a speech therapist since these symptoms began. She also reports difficulty holding onto objects, stating, I just feel like I can't stay closed on it. She experiences numbness in her right hand, which pretty much goes completely to sleep. She does not endorse any issues with chewing or getting food down. She reports two episodes of syncope. The first occurred during a massage in August, where she felt nauseous and began sweating before losing consciousness. She was seated in a massage chair. She was reportedly unable to move her arms or legs and required assistance from EMS. The second episode occurred at home two months ago, where she just fell forward in her entryway. She does not endorse any other episodes of syncope or lightheadedness when standing up. She has a history of tachycardia, with a resting heart rate of 138 bpm, for which she is under the care of a datastage architect and is taking metoprolol. Her primary care physician has recommended a diuretic for swelling, but she has not started it yet. She has not tried any medications for her current symptoms. She was previously prescribed tizanidine and risperidone by her neurologist, but she did not take them. She planned to get treatment with Botox but has not the injections, as her neurologist was unable to schedule her for the procedure. She denies exposure to dopamine blocking medications. She has a history of back pain and is currently taking gabapentin 1800 mg daily. She has tried Flexeril in the past but not for her current symptoms. She was previously on Vyvanse but stopped taking it around the time her symptoms began. She describes herself as a very busy person and reports that her OCD and ADHD symptoms have escalated since her current symptoms began. Her agrees. She does not endorse any depression but reports feeling frustrated and agitated due to her symptoms. She is concerned about her mobility and ability to continue her daily activities, stating, I really don't have time for this. Her 's health issues add to her stress. She does not see psychiatry or psychology currently but is open to it. Movement Disorders Medications Schedule - as of the start of the visit: Medications Questionnaires In addition, the following areas that may be affected by abnormal involuntary movements were evaluated: Daily activities Difficulties with eating: Yes (mild) Difficulties in dressing: Yes (slight) Difficulties with hygiene activities: 0 (none) Difficulties with handwriting: Yes (slight) Difficulties with doing hobbies and other activities: Yes (slight) Difficulties turning in bed: Yes (slight) Difficulties getting out of bed, car or chair: Yes (slight) Tremors/Gait/Balance Shaking or tremors: Yes (slight) Walking and balance problems: (more content not included)... Normal [facility] Copperon 10-20-2024 Copper 100 ug/dL Normal 80-158 [facility] Comment on above: Result Comment: This test was developed and its performance characteristics determined by [facility]. It has not been cleared or approved by the Food and Drug Administration. Detection Limit = 5 Performed at: [address] [id number] Inside Tester: Prieto Bender MD, Phone: [phone] PERFORMED BY: [place] [address] PATHOLOGIST RAG BALER PHILLIP ALEJANDRO M.D. Performed By: #### B 12, CK, TSH3, FOL #### [address] #### CU #### [facility] , Creatine Kinaseon 10-20-2024 CK [Catalytic activity/Vol] 39 U/L Normal - [facility] Comment on above: Result Comment: PERF ORMED BY: [place] [address] PATHOLOGIST RAG BALER PHILLIP ALEJANDRO M.D. Performed By: #### B 12, CK, TSH3, FOL #### [address] #### CU #### [facility] , Creatine kinase [Enzymatic a ctivity/volume] in Serum or PlasmaOrdered By: Cesar Hurt on 10-20-2024 CK [Catalytic activity/Vol] Creatine kinase [Enzymatic activity/volume] in Serum or Plasma - [facility] Folateon 10-20-2024 Folate 14.7 ng/mL Normal >5.9 [facility] Comment on above: Result Comment: Justa te reference range: >5.9 ng/ml The WHO technical consultation on folate and vitamin b12 deficiencies has determined that folate concentrations less than 4 ng/ml are considered deficient. Performed By: #### B 12, CK, TSH3, FOL #### [facility] [address] [place] [address] [place] #### CU #### [facility] , Folate [Mass/volume] in Seru m or PlasmaOrdered By: Cesar Hurt on 10-20-2024 Folate [Mass/Vol] Folate [Mass/volume] in Serum or Plasma >5.9 [facility] Comment on above: Folate reference ran ge: >5.9 ng/mlThe WHO technical consultation on folate and vitamin [id number] has determined that folate concentrations lessthan 4 ng/ml are considered deficient. Thyroid Stimulating Hormoneo n 10-20-2024 TSH Qn 1.86 m[IU]/L Normal 0.45-5.33 [facility] Comment on above: Result Comment: PERF ORMED BY: [place] [address] PATHOLOGIST RAG BALER PHILLIP ALEJANDRO M.D. Performed By: #### B 12, CK, TSH3, FOL #### [facility] [address] [place] [address] [place] #### CU #### [facility] , Thyrotropin [Units/volume] i n Serum or PlasmaOrdered By: Cesar Hurt on 10-20-2024 TSH Qn Thyrotropin [Units/volume] in Serum or Plasma 0.45-5.33 [facility] Vitamin B12on 10-20-2024 Cobalamin (Vitamin B12) [Mass/Vol] 329 pg/mL Normal 180-914 [facility] Comment on above: Performed By: #### B 12, CK, TSH3, FOL #### [facility] [address] [place] [address] [place] #### CU #### [facility] , Vitamin B12 ser/plasOrdered By: Cesar Hurt on 10-20-2024 Cobalamin (Vitamin B12) [Mass/Vol] Vitamin B12 ser/plas 180-[address] [facility] [address] Cervical spine WO contras ton 08-26-2024 1. No acute osseous abnormality of the cervical spine. 2. Mild degenerative changes. [facility] EXAMINATION: CT OF THE CERVICAL SPINE [...] paraspinal soft tissue abnormality. Mild calcific atherosclerosis. [facility] Oliver Joshua MD - [...] the cervical spine. 2. Mild degenerative changes. [facility] CT Head WO contraston 2023 No acute intracranial abnormality. [facility] EXAMINATION: CT OF THE [...] of the visualized skull or soft tissues. [facility] Oliver Joshua MD - 08/26/2024 EXAMINATION: CT [...] soft tissues. IMPRESSION: No acute intracranial abnormality. [employer] CT Head WO contrastOrdered B y: Oliver Joshua on 08-26-2024 [employer] Work Phone: Basic Metabolic Panelon 12-0 Anion gap [Moles/Vol] 11 mmol/L 9 - 16 mmol/L [facility] Calcium [Mass/Vol] 8.9 mg/dL 8.6 - 10. 4 mg/dL [facility] Chloride [Moles/Vol] 105 mmol/L 98 - 10 7 mmol/L [facility] CO2 [Moles/Vol] 25 mmol/L 20 - 31 mmol/L [facility] Creatinine [Mass/Vol] 0.7 mg/dL 0.7 - 1.2 mg/dL [employer] Est, Glom Augustust Rate - PINF [facility] Comment on above: These results are not [...] 106 mg/dL High 74 - 99 mg/dL [employer] Interpretation and review of laboratory results Abnormal [employer] Potassium [Moles/Vol] 3.5 mmol/L Low 3.7 - 5.3 mmol/L [facility] [employer] Comment on above: Specimen hemolysis h as exceeded the interference as defined by [place]. Value may be falsely increased. Suggest recollection if clinically indicated. Sodium [Moles/Vol] 141 mmol/L 136 - 145 mmol/L [employer] Urea nitrogen [Mass/Vol] 14 mg/dL 6 - 20 mg/dL [facility] CBC with Auto Differentialon 08-25-2024 Basophils (Bld) [#/Vol] 0.00 10*3/uL [facility] Basophils/100 WBC (Bld) 0 % 0 - 2 % [facility] Eosinophils (Bld) [#/Vol] 0.10 10*3/uL [facility] Eosinophils/100 WBC (Bld) 1 % 0 - 4 % [facility] Erythrocyte distribution width (RBC) [Ratio] 12.9 % 11.5 - 14.9 % [facility] Hematocrit (Bld) [Volume fraction] 41.8 % 36 - 46 % [facility] Hemoglobin (Bld) [Mass/Vol] 14.0 g/dL 12.0 - 16.0 g/dL [facility] Interpretation and review of laboratory results Abnormal [facility] Lymphocytes/100 WBC (Bld) 10 % Low 24 - 44 % [facility] Lymphocytes/100 WBC (Bld) 1.00 % [facility] MCH (RBC) [Entitic mass] 29.9 pg 26 - 34 pg [facility] MCHC (RBC) [Mass/Vol] 33.4 g/dL 31 - 37 g/dL [facility] MCV (RBC) [Entitic vol] 89.5 fL 80 - 100 fL [facility] Monocytes/100 WBC (Bld) 5 % 1 - 7 % [facility] Monocytes/100 WBC (Bld) 0.60 % [facility] Neutrophils/100 WBC (Bld) 84 % High 36 - 66 % [facility] Platelet mean volume (Bld) [Entitic vol] 9.1 fL 6.0 - 12.0 fL [facility] Platelets (Bld) [#/Vol] 111 10*3/uL Low [facility] RBC (Bld) [#/Vol] 4.68 10*6/uL 4.0 - 5.2 m/uL [facility] Segmented neutrophils/100 WBC (Bld) 9.00 % [facility] WBC other (Bld) [#/Vol] 10.[address] [facility] [address] Cervical spine WO contras ton 08-25-2024 Radiology Study observation (narrative) [facility] CT Head WO contraston 2023 Radiology Study observation (narrative) [facility] Magnesiumon 08-25-2024 Magnesium [Mass/Vol] 2.1 mg/dL 1.6 - 2 .6 mg/dL [facility] No Panel Informationon 08-25 [facility] Troponinon 08-25-2024 Troponin I.cardiac High sensitivity method [Mass/Vol] ng/L 0 - 14 ng/L [facility] Comment on above: High Sensitivity Tro ponin [...] how she does. She verbalized understanding. Normal [facility] Office Visiton 05-27-2024 Follow-up visit [id number] Lisa Ramos 1965 F Date Provider Department Center 05/27/2024 [id number] ARAGON CARD [facility] Family History Problem Relation Age of Onset Other Father Heart attack Maternal Grandfather Family Status - Relation Status Age at Father Maternal Grandfather Level of Service:48979 [place] OFFICE/OUTPATIENT ESTABLISHED MOD MDM 30 MIN Normal [facility] Coding Summaryon 01-12-2024 Coding Summary HTMLBase 64 WneagvqzWZv3bDx+PGhl YWQ+YY8RPDRkL92uqYFv kE1aH9LRYPhQBabuTVPT QBcJAvVlexTqRF5dbSUu ZXJu IC8+NI0mQERdLbhndABc x5Q8iSZ4J21qfv9iQClc xSD8UXWgFiFfsbwba6yh hGf5GDlvWqnrAqHp FQKuqK42IBL5dH02Yl70 nSRluJSup2otqMd5AnGj AWXnXBM1yBtwBTssh4Ve TFNyC52phIPyj0Z0 IGNvbGxhcHNlOyBlbXB0 hR5gLGlsgzvhw1npndks Tsr5uj35sWWxw1S1jSW5 H7WmsrV5CSNjkFTy JyqrgIZYrW1wvlmqp6th yfrpIqQxGEPyPAd1KNo6 UEJlkNedLxHfQE32SIW0 ZVNazgIyH4LwVQUk dQuyNwP8d6Z4Du9NM5GK IjvrY5SKUUMTRNnwpDT+ YW11pb29R3QeOpdyXup3 MQEnUIP7fZJ2xF3d WLFmCDufq5K5wTX6P6Ej qhAlkg5fp6ifBCQkDJmw A97gwTInm0K8FIGsjHE3 JKYzbFbsXzQhlK49 Oyc+WNUecQtsh9SaHaex d1ysn6lipRm1TghpMOVt zhUmzXjxSXQ7t8QeVu7n SNMpdUW3wNP2kC1h ZhGmMhI6AAidC186ItBd mNDnEchvE16kA7DrePH+ IWZsOyp7LPNjsPcxBO8p M7KpISLhwielbMGv pFtlUK0eSUHdbbjwGHJf zP8sBDOzH2i3FiWqXkI3 TCsdS7HvAXXovxheGe94 mT7pXlAgCiF1PAan H2EisjZ4UFYwoDWkXJvj LBC6K38ie7J9OPFnAQOm FXV2lQS4aG6svOyqpclt bGVmdDsgdmVydGlj GRocGWiqJ796IACuqFmf PkNvZGluZyBEYXRlOiAg MDQvMjMvMjAyNDwvdGQ+ JWKcSBJ3lYorBSBv yRLyQQevWf4jfAawyHny WL3kKLPoawnjTJNpgI3n DYPwgDPckKbrXO7yZHMm lnhbo471OnUrXGS7 TJFicBQdY8AooO9xZlDj CKFnXFBlI8XsoOYnXFgy T372RJzcHfX7KEYacxCt H2MmTINgpZnwRcL1 h3M0Kf1Rc2JteedjH2Tq sHXuSvWwHxwlNAe8F8Eb PjwvdHI+QP64NQCoCV30 BDn6JWT3vLzxHWoq NCVvY3NouD9xRkArZWHb ZGRkOyc+PHRhYmxlIHdp ZHRoPScxMDAlJyBzdHls RI6bWv8eERBdANOk nXdclJKnXxFlf8dvVHIj VEloVG4rbTwdC2UopGU3 QWQou4m5Nw88V41uH7Tn dXA+MYHbyVO6fGK0 gV1lTwYqSkP6EGzpI046 YyByzEUtOhpmi9rdu2ri wWb2UyV9HLVpodZwrSzc DFM1n3MpRf67U04r IHdpZHRoPSIxNSUiIHZh qSgflx8ttJ6qQq1+PGNv dJV4kJC2rP7fJfWeQnG5 YXwdE274BiWdqCHz Jeups6dvs1aixZz8HbCh IARcboOcfJfyEUD9a7Uj Wj91G5IodBgke3IlZhj8 zn28nCOdz1V8mXB4 L2ZfVDLltifkuYMnfCsn UZ5fQKOxbsqeRECzaH7n VBTbG0m5EkRuIoZ9IFiw F2JlkrP5OIUriFOn BKTlmIOKuG6lyejqx8rj nbjgAcSjCTRmEVl6QSy0 OXArjNusVzWdFMH9LvK0 RPV7fMTwuW1xfWgu gulihB1xPxy+DHU1wTNy rMTGCJ9cToxupRF+PHRk XCH3oLxsQTehEKEmrA8r ZHExL9x0OySmWfP4 NCivR9YhwvN9ZAHjtPLn BFGdjBRVcL5mppkcl7al qrluOeGyJDPhWDs0UCq2 LWFsaWduOiBsZWZ0 RdF6AQY1zLRvrT0lnWqm uwjwfY7wMbt+QmlydGgg GSP9FYo8Y3XtNah6MVKc oTghLY4ouBLnBFsp Ca0zxYuktPdjSZ2qHMHc sosjs570VuCqr7cxWFDf kHDcJZztFJE2F96nn1V4 ERNgSUMtJZV4bLM2 bU1vgGxekfwoiYYcgDpm erRotJrgTHbkYUkkD151 QOWwnMywNkApDCt5I7Oi Rvj8ZSHwpZesRL0p kLTzBCkfLm6ymIittUxk PB7kJRJiaqggq053YoWx e9voGIPsxGEaHPjoRMG6 Y22oh5W7MRYoYKIe AFZ2lFS8yS3xaZtdpvka bGVmdDsgdmVydGljYWwt ESyqY440ABTzkUfySsYj yNs6E9HyNwj8OYWv mMetTC5ctMYkUZnyJv2n aXlcqSecHZ3rQSUrtnzn e361NhYpd0fpTPLgsZQr IPivKKL0Z08el6R8 ZMIcKOAeBCM3iEG2sX4h bGlnbjogbGVmdDsgdmVy tFxcTTukZIeiS246MQCf cDsnPlBhdGllbnQg SQtuNPw1Y5OqEmvbkBB+ XK36XJKgOO38hYHnnTFr h6dvuAx0OnKmVUUjRES8 rZyaBAtrc0DnURJc Z49ikYXhq4K4IEJnkPes fXLhOuRmmTP0tN2qZPew wwknf1gvslzpOloua0xr gq46wZ55Z37gGJvb ZHRoPSIzMCUiIHZhbGln tp5wcG1rUh7+PGNvbCB3 iWH4tT1gWWWnTfM6TNfq S608StYnyZDgMejq h2bdr7lckCf0QiQ7HBEp pzKxqAjmJDK6t5XrId08 U77hTCybMOCwPPHoXWCz GNPryAgdwl7jpA5e Ii8+VRDddRH5rTA7aL3b JoYtGcJ1LAglO595HmCp aPEsUipuN65hM1TslVI+ YIZpSeb7IZDmrEow EA2gnRTxSXshZu7jJPU5 TkYoLaKgGHfiF7FeRYMz yoiryrtizPQ0FKYqJMEm nL81Zj0qmEniMSMo lCMVuE7zyfnbg1eukksf LsUzNTYxYGg0CPs1GPCe pVbtUdZjDIH9IxZ4SYZ2 nQBxeP0fkCzzzjay dT6fZ6TiXNYsmtahZp32 vT2uBfJdEkS3UZihYig+ C6mBCSkxSF0RVBsYPHwA WTwvdGQ+PHRkIHN0 eVjtHWexNTKjkH9xEUEl R5l5TsKmHfA0YYpgL7Tv KKGjbdwgDz97uU7bQhFu RqK7CVaiI4QqpnY7 CQVsyASdAPrtQXE8P09e i8Y8KCRmYSEaBZQ0mTJ0 qD3ncUqyysunjYWrpTdb dmVydGljYWwtYWxp A904AFJknUrkXaPwJrN0 TyQ2KuK3V1HfEjz2BFAq jNcoWD4rcLRkBMsvYi6t oGhxhKprVI9lYTNx knhpTIXflW5wMAAkfRGt bXgsZR7qNTHjagewy835 DtCiYDZ9XJEvmUPsT2Ha tF2vByVmHNMiTQKn L3GwvIJlEConD376GTob OwL6SBUwbkYeQ8PrICUo yGiwPnI3s9B5Ht91QeOI ZWFyczwvdGQ+PHRk DNJ5wDojWIyoBBAarH7t WAXvL0p7WpAiKaM7IMej R3VaJQEzwbrlWy88yJ3e RuWkOvL0JXqrZ7Fr wcM8YESgpPBvJJudDKD7 N15nr0T1GUNwFOZmOGK7 bZD4nB9fcUcxdfsrcRMt dDsgdmVydGljYWwt NRofF925MIZseIfrDpNC TUFMRTwvdGQ+PHRkIHN0 mUspWSxlCVGknA6eAZHp V7q3GkEdTrC5GRnt I5AhOWPenqcbTf04lE9x WvQgImQ1SWyiX1AtkaF8 VYAauPKzEDfvBNA4Z58w b7P8LFWrZXTnOKH9 nTR0aQ0lqJygagjvuUBt dDsgdmVydGljYWwtYWxp Z199GFNucLjhHb1EVI41 WE26Y6EiPrxgoIWb bGU+PHRhYmxlIHdpZHRo GGtbLNMtKwShlDesOT6v Na7sVXEtPIGacTlkvERj LsJqy0btTJSmAEee NL0lyBfrD3UntGU6INXj z5v2Vn99F48sE5XtuWV+ UMYocYT7nYN9uV8hBsLu OyX6EJmqO262LhBa zQQiDpwjp0sct2wmoPg3 IjMwJSIgdmFsaWduPSJ0 c4AtWt67I96aJFbwYNKp PSIyMCUiIHZhbGln zl4xlB5vLg0+PGNvbCB3 iGK1iN0xFwKnFkZ6NIqo X812BlSaxDOoTkdtY75f Q2HomHK+PHRyPjx0 BUQnpJlyUY3lrVDgJVol Qd5sPXN2TeVrJlMqBKdk L5CqWSEyeytdykmlnXO4 QGBuLSImuZ58Fs2a eNzvYu1qMDVbWWF8DBTv gWCtR9LocC5gFpZvCVAf QIWxN7BkrPRzWCorT333 KSttMsS4NHZhvzNp O9CiHYLpeUfrRcO6s1P1 Ge5PlTrroYFqFK9cTsFm DZb5L9OeKtf5HAWmkEzi WM7ojMLbCVwiGr9g kVjueOftUI3gAQOmlrti y629GsNja9ywEKEjsQSw GEuwMPK4N55jt9F5IYDc IBLaKWE2pNG7oN9v bGlnbjogbGVmdDsgdmVy fOeqCCyjPDdoK268HYIl gOqbYkVQUos3H0TcRay0 LISbqUkwHD3xpZGw KClkVp6heVylvQwtDI3p KVMmngoqr758QqIwg2eu HKRsnWPpPYniVZF1R31b e6R9YEPnWTJqPSM5 nMT3eH3suOfhegbrjSPb dDsgdmVydGljYWwtYWxp D813QHGvrHhlPe0TLak3 J2BsOel8BEKnnUnr GI3nbZQzHJakEg6moVaw vQjqEH5pGWKtnthjy190 ZaOaf9vkXYCmcKYeERgi RPU1J16xt7K0TJSq OOKlJVA1mHO5xI7jyWln bjogbGVmdDsgdmVydGlj LMtgSPohF452YQQanAwe PlBheWVyOjwvdGQ+ PD43kc06L1GgOiyhCqm4 ZDFoFBB7gLB2nD4oFNQk KMbhi1D8yVI7Y7LywaTr vc3ge0bvFKSdBSed Y29 (more content not included)... [facility] MR KNEE RIGHT WO IV CONTRAST on [...] ing. Mild osteoarthritis. ELECTRONICALLY SIGNED BY: Johnnie Ledezma, DO Normal Not Available ED Clinical Summaryon 2023 ED Clinical Summary [facility] ? Urgent Care [address] [place] [address] Clinical Summary PERSON INFORMATION Name: LISA RAMOS Age: 58 Years Sex: FEMALE : 1965 MRN: Acct#: Visit Reason: UC - Knee Pain or Swelling; RIGHT KNEE PAIN Arrival: 12/30/2023 16:57:55 Discharge: 12/30/2023 18:30:00 LOS: 000 01:33 Check In: 12/30/2023 16:57:55 Checkout: 12/30/2023 18:30:00 Address: [address] [place] [id number] PCP: SOHAIL PICKERING JR. PROVIDER INFORMATION Provider Role Assigned Unassigned Linnette Woods RN ED Nurse 12/30/2023 17:01:07 12/30/2023 17:01:17 Linnette Woods RN ED Nurse 12/30/2023 17:01:20 Ana Alfonso RN ED Nurse 12/30/2023 17:08:48 12/30/2023 17:08:50 Naty DIAZ, Ana ED Nurse 12/30/2023 17:08:56 Kaley Swenson PA-C [...] Pes Anserine Bursitis Follow-Up: With: Address: When: KarieEthan sapp Oliver DO [address] [place] [id number] Within 7 to 10 days Comments: Call for follow up appointment With: Address: When: SOHAIL PICKERING JR. [address] [place] [id number] DIAGNOSIS: 1:Pes anserinus tendinitis Patient Understands: Yes - Patient/family/careg iver verbalizes understanding of instructions given Comment: Normal [facility] ED Patient Summaryon 024 ED Patient Summary [facility] ? Urgent Care [address] [place] [id number] PATIENT DISCHARGE INSTRUCTIONS Patient Information Name: LISA RAMOS Age: 58 Years Date of : 1965 Reason For Visit: UC - Knee Pain or Swelling; RIGHT KNEE PAIN Arrival Time: 12/30/2023 16:57:55 Primary Care Physician: SOHAIL PICKERING JR. Attending Physician: Kaley Swenson PA-C Comment: Patient Education With: Address: When: Ethan Tiwari DO [address] [place] [id number] Within 7 to 10 days Comments: Call for follow up appointment With: Address: When: SOHAIL PICKERING JR. [address] [place] [id number] Acute Knee Pain, Adult Acute knee pain [...] under your knee. General instructions ? Take ijay-maz-txcijdf and prescription medicines only as told by [...] Education ? 20 (more content not included)... Normal [facility] XR Knee Complete Righton XR Knee Complete Right IMAGES REVIEWED: XR Knee Complete Right COMPARISON: None available. CLINICAL INDICATION: knee pain FINDINGS/IMPRESSION: Unremarkable radiographic appearance of the right knee. Final Dictated by: Kali Wolf MD Dictated DT/TM: 12/30/23 7:04 Signed (Electronic Signature): Kali Wolf MD 12/30/23 7:04 pm Technologist: CLARK [facility] BNPon 03-19-2020 Natriuretic peptide B (Bld) [Mass/Vol] pg/mL Normal <=900.0 [facility] Comment on above: Performed By: #### G NEW, CREA, BNP, TSH, ELEC, LIPID, LIVER, BUN #### [facility] [address] [place] [address] Luciana Coe BUNon 03-19-2020 Urea nitrogen [Mass/Vol] 10.0 mg/dL Normal 7.0-17.0 [facility] Comment on above: Performed By: #### G NEW, CREA, BNP, TSH, ELEC, LIPID, LIVER, BUN #### [facility] [address] [place] [address] Luciana Carolin CREATININEon 03-19-2020 Creatinine [Mass/Vol] 0.77 mg/dL Normal 0.52-1.04 [facility] Comment on above: Performed By: #### G NEW, CREA, BNP, TSH, ELEC, LIPID, LIVER, BUN #### [facility] [address] [place] [address] Carolin Creatinine [Mass/Vol] mg/dL Normal >=60 [facility] Comment on above: Performed By: #### G NEW, CREA, BNP, TSH, ELEC, LIPID, LIVER, BUN #### [facility] [address] [place] [address] Luciana Cardenasen ELECTROLYTESon 03-19-2020 Anion gap [Moles/Vol] 11.6 mmol/L Normal [facility] Comment on above: Performed By: #### G NEW, CREA, BNP, TSH, ELEC, LIPID, LIVER, BUN #### [facility] [address] [place] [address] Chloride [Moles/Vol] 108 mmol/L Critically high 98-107 [facility] Comment on above: Performed By: #### G NEW, CREA, BNP, TSH, ELEC, LIPID, LIVER, BUN #### [facility] [address] [address] Luciana Carolin CO2 [Moles/Vol] 27.5 mmol/L Normal 22.0-30.0 [facility] Comment on above: Performed By: #### G NEW, CREA, BNP, TSH, ELEC, LIPID, LIVER, BUN #### [facility] [address] [address] Luciana Carolin Potassium [Moles/Vol] 4.1 mmol/L Normal 3.4-5.0 [facility] Comment on above: Performed By: #### G NEW, CREA, BNP, TSH, ELEC, LIPID, LIVER, BUN #### [facility] [address] [address] Luciana Carolin Sodium [Moles/Vol] 143 mmol/L Normal 137-145 [facility] Comment on above: Performed By: #### G NEW, CREA, BNP, TSH, ELEC, LIPID, LIVER, BUN #### [facility] [address] [address] Luciana Carolin GLUCOSE BLOODon 03-19-2020 Glucose [Mass/Vol] 105 mg/dL Normal 74-106 [facility] Comment on above: Performed By: #### G NEW, CREA, BNP, TSH, ELEC, LIPID, LIVER, BUN #### [facility] [address] [place] [address] Luciana Carolin LIPID PROFILEon 03-19-2020 CHOL-HDL RATIO NORM SEE BELOW Normal [facility] Comment on above: Result Comment: 3.3 - 4.4 LOW RISK 4.4 - 7.1 AVERAGE RISK 7.1 - 11.0 MODERATE RISK >11.0 HIGH RISK Performed By: #### G NEW, CREA, BNP, TSH, ELEC, LIPID, LIVER, BUN #### [facility] [address] [address] Luciana Carolin Cholesterol [Mass/Vol] 213 mg/dL Critically high <=200 [facility] Comment on above: Performed By: #### G NEW, CREA, BNP, TSH, ELEC, LIPID, LIVER, BUN #### [facility] [address] [address] Luciana Carolin Cholesterol in HDL [Mass/Vol] 37 mg/dL Normal [facility] Comment on above: Performed By: #### G NEW, CREA, BNP, TSH, ELEC, LIPID, LIVER, BUN #### [facility] [address] [address] Luciana Carolin Cholesterol in HDL [Mass/Vol] > or = 60 mg/dl - LOW CARDIOVASCULAR RISK <40 mg/dl - HIGH CARDIOVASCULAR RISK Normal [facility] Comment on above: Performed By: #### G NEW, CREA, BNP, TSH, ELEC, LIPID, LIVER, BUN #### [facility] [address] [address] Luciana Carolin Cholesterol in LDL [Mass/Vol] 131.6 mg/dL Normal [facility] Comment on above: Performed By: #### G NEW, CREA, BNP, TSH, ELEC, LIPID, LIVER, BUN #### [facility] [address] [address] Luciana Carolin Cholesterol in LDL [Mass/Vol] SEE BELOW Normal [facility] Comment on above: Result Comment: <100 mg/dl OPTIMAL 100 - 129 mg/dl NEAR OR ABOVE OPTIMAL 130 - 159 mg/dl BORDERLINE HIGH 160 - 189 mg/dl HIGH >190 mg/dl VERY HIGH Performed By: #### G NEW, CREA, BNP, TSH, ELEC, LIPID, LIVER, BUN #### [facility] [address] [address] Luciana Carolin Cholesterol.total/Ch olesterol in HDL [Mass ratio] 5.8 {ratio} Normal [facility] Comment on above: Performed By: #### G NEW, CREA, BNP, TSH, ELEC, LIPID, LIVER, BUN #### [facility] [address] [address] Luciana Carolin Triglyceride [Mass/Vol] 222 mg/dL Critically high <=150 [facility] Comment on above: Performed By: #### G NEW, CREA, BNP, TSH, ELEC, LIPID, LIVER, BUN #### [facility] [address] [address] Luciana Carolin VLDL CALC 44.4 mg/dL Normal [facility] Comment on above: Performed By: #### G NEW, CREA, BNP, TSH, ELEC, LIPID, LIVER, BUN #### [facility] [address] [place] [address] Lucianajodi Coe LIVER PROFILEon 03-19-2020 Albumin [Mass/Vol] 3.5 g/dL Normal 3.5-5.0 [facility] Comment on above: Performed By: #### G NEW, CREA, BNP, TSH, ELEC, LIPID, LIVER, BUN #### [facility] [address] [place] [address] Lucianajodi Cardenasen Albumin/Globulin [Mass ratio] 1.0 {ratio} Normal [facility] Comment on above: Performed By: #### G NEW, CREA, BNP, TSH, ELEC, LIPID, LIVER, BUN #### [facility] [address] [place] [address] Luciana Carolin ALP [Catalytic activity/Vol] 67 U/L Normal 38-126 [facility] Comment on above: Performed By: #### G NEW, CREA, BNP, TSH, ELEC, LIPID, LIVER, BUN #### [facility] [address] [place] [address] Lucianajodi Coe ALT [Catalytic activity/Vol] 32 U/L Normal 9-52 [facility] Comment on above: Performed By: #### G NEW, CREA, BNP, TSH, ELEC, LIPID, LIVER, BUN #### [facility] [address] [place] [address] Luciana Carolin AST [Catalytic activity/Vol] 18 U/L Normal 14-36 [facility] Comment on above: Performed By: #### G NEW, CREA, BNP, TSH, ELEC, LIPID, LIVER, BUN #### [facility] [address] [place] [address] Luciana Carolin BILI, CONJUGATED 0.1 mg/dL Normal 0.0-0.3 [facility] Comment on above: Performed By: #### G NEW, CREA, BNP, TSH, ELEC, LIPID, LIVER, BUN #### [facility] [address] [place] [address] Luciana Coe Bilirubin Ql (U) 0.7 mg/dL Normal 0.2-1.3 [facility] Comment on above: Performed By: #### G NEW, CREA, BNP, TSH, ELEC, LIPID, LIVER, BUN #### [facility] [address] [address] Luciana Coe Globulin (S) [Mass/Vol] 3.5 g/dL Normal [facility] Comment on above: Performed By: #### G NEW, CREA, BNP, TSH, ELEC, LIPID, LIVER, BUN #### [facility] [address] [place] [address] Luciana Carolin Protein [Mass/Vol] 7.0 g/dL Normal 6.1-8.2 [facility] Comment on above: Performed By: #### G NEW, CREA, BNP, TSH, ELEC, LIPID, LIVER, BUN #### [facility] [address] [place] [address] Luciana Coe TSHon 03-19-2020 TSH Qn SEE BELOW Normal [facility] Comment on above: Result Comment: <0.3 4 UIU/ml HYPERTHYROID 0.34-5.60 UIU/ml EUTHYROID >5.60 UIU/ml HYPOTHYROID Performed By: #### G NEW, CREA, BNP, TSH, ELEC, LIPID, LIVER, BUN #### [facility] [address] [place] [address] Luciana Coe TSH Qn 2.093 uIU/mL Normal 0.470-4.680 [facility] Comment on above: Performed By: #### G NEW, CREA, BNP, TSH, ELEC, LIPID, LIVER, BUN #### [facility] [address] [id number] Luciana Coe Vital Signs Date Time Vital Sign Value Performing Clinician Facility 05-09-2025 13:54-0400 Body mass index (BMI) [Ratio] 29.52 kg/m2 Christofer Gandhi MD Work Phone: [facility] 05-09-2025 13:54-0400 Body weight 75.6 kg Christofer Gandhi MD Work Phone: [facility] 05-09-2025 13:54-0400 SaO2% (BldA) [Mass fraction] 100 % Christofer Gandhi MD Work Phone: [facility] 12-01-2024 08:58-0400 Body height 157.5 cm Cesar Licha DO Work Phone: [facility] 12-01-2024 08:58-0400 Body mass index (BMI) [Ratio] 30.76 kg/m2 Cesar Licha DO Work Phone: [facility] 12-01-2024 08:58-0400 Body weight 76.3 kg Cesar Licha DO Work Phone: [facility] 12-01-2024 08:58-0400 Diastolic blood pressure 82 mm[Hg] Cesar Licha DO Work Phone: [facility] 12-01-2024 08:58-0400 Heart rate 64 /min Cesar Licha DO Work Phone: [facility] 12-01-2024 08:58-0400 SaO2% (BldA) [Mass fraction] 96 % Cesar Licha DO Work Phone: [facility] 12-01-2024 08:58-0400 Systolic blood pressure 122 mm[Hg] Cesar Licha DO Work Phone: [facility] 10-20-2024 10:27-0500 Body height 157.5 cm Cesar Licha DO Work Phone: [facility] 10-20-2024 10:27-0500 Body mass index (BMI) [Ratio] 29.12 kg/m2 Cesar Licha DO Work Phone: [facility] 10-20-2024 10:27-0500 Body weight 72.21 kg Cesar Licha DO Work Phone: [facility] 10-20-2024 10:27-0500 Diastolic blood pressure 84 mm[Hg] Cesar Licha DO Work Phone: [facility] 10-20-2024 10:27-0500 Heart rate 90 /min Cesar Hurt DO Work Phone: [facility] 10-20-2024 10:27-0500 SaO2% (BldA) [Mass fraction] 97 % Cesar Hurt DO Work Phone: [facility] 10-20-2024 10:27-0500 Systolic blood pressure 126 mm[Hg] Cesar Hurt DO Work Phone: [facility] 08-26-2024 00:30-0500 Diastolic blood pressure 55 mm[Hg] Pedro Vasquez I, DO [facility] 08-26-2024 00:30-0500 Heart rate 54 /min Pedro Vasquez I, DO [facility] 08-26-2024 00:30-0500 Respiratory rate 14 /min Pedro Vasquez I, DO [facility] 08-26-2024 00:30-0500 SaO2% (BldA) [Mass fraction] 97 % Pedro Vasquez I, DO [facility] 08-26-2024 00:30-0500 Systolic blood pressure 107 mm[Hg] Pedro Vasquez I, DO [facility] 08-25-2024 22:17-0500 Body temperature 97.7 [degF] Pedro Vasquez I, DO Work Phone: [facility] [employer] 08-25-2024 20:55-0500 Body height 157.5 cm Pedro Vasquez I, DO [facility] 08-25-2024 20:55-0500 Body mass index (BMI) [Ratio] 28.35 kg/m2 Pedro Vasquez I, DO Work Phone: [facility] [employer] 08-25-2024 20:55-0500 Body weight 70.31 kg Mansour Mansour I, DO Work Phone: [facility] 10-06-2023 14:55-0500 Body height 160.02 cm Viki Shankar Other [employer] Other 10-06-2023 14:55-0500 Body mass index (BMI) [Ratio] 30.11 kg/m2 Viki Shankar Other [employer] Other 10-06-2023 14:55-0500 Body temperature 98.2 [degF] Viki Shankar Other [employer] Other 10-06-2023 14:55-0500 Body weight 77.11 kg Viki Shankar Other [employer] Other 10-06-2023 14:55-0500 Respiratory rate 18 /min Viki Shankar Other [employer] Other 10-06-2023 14:55-0500 SaO2% (BldA) [Mass fraction] 98 % Viki Shankar Other [employer] Other Encounters Encounter Date Encounter Type Care Provider Facility Start: 05-09-2025 End: 05-09-2025 ambulatory CHRISTOFER GANDHI Facility:[facility] Start: 05-09-2025 End: 05-09-2025 Office outpatient new 60 minutes Chrisotfer Gandhi MD Work Phone: Neurology Comment on above: Dystonia (Primary Dx ); Obsessive-compulsive disorder, unspecified type; Attention deficit hyperactivity disorder (ADHD), unspecified ADHD type Start: 12-01-2024 End: 12-01-2024 Bamboo flowsheet Cesar Hurt DO Work Phone: [facility] Start: 12-01-2024 End: 12-01-2024 Bamboo flowsheet Cesar Hurt DO Work Phone: [facility] Start: 12-01-2024 End: 12-01-2024 Office outpatient visit 25 minutes Cesar Licha DO Work Phone: [facility] Comment on above: Dystonia (Primary Dx ); Muscle spasm; Motor tic disorder (CMS/HCC); Syncope, unspecified syncope type Start: 12-01-2024 End: 12-01-2024 ambulatory CESAR LICHA Not Available Start: 10-20-2024 End: 10-20-2024 Patient encounter procedure Sohail Pickering JR Work Phone: [facility] [place] Work Phone: Start: 10-20-2024 End: 10-20-2024 ambulatory Sohail Pickering Work Phone: [facility] Work Phone: Start: 10-20-2024 End: 10-20-2024 Office consultation new/estab patient 60 min Cesar Licha DO Work Phone: [facility] Comment on above: Dystonia (Primary Dx ); Muscle spasm; Syncope, unspecified syncope type Start: 10-20-2024 End: 10-20-2024 ambulatory CESAR LICHA Not Available Start: 08-25-2024 End: 08-26-2024 Emergency department patient visit Pedro Vasquez DO Work Phone: [facility] Comment on above: Vasovagal episode (P rimary Dx) Start: 05-27-2024 End: 05-27-2024 [facility] Start: 04-26-2024 End: 04-26-2024 ambulatory ETHAN TIWARI Not Available Start: 01-29-2024 End: 01-29-2024 ambulatory ETHAN TIWARI Not Available Start: 01-14-2024 End: 01-14-2024 ambulatory ETHAN TIWARI Not Available Start: 01-05-2024 End: 01-05-2024 ambulatory CHRISTINA Casillas APLING Not Available Start: 12-31-2023 End: 12-31-2023 ambulatory CHRISTINA B APLING Not Available Start: 12-30-2023 End: 12-30-2023 ambulatory DAILY Swenson Facility:[facility] Start: 10-06-2023 End: 10-06-2023 ambulatory Viki Shankar Other [employer] Other Start: 10-06-2023 Office outpatient ne w 30 minutes Viki Shankar [facility] Start: 03-19-2020 End: 03-20-2020 Patient encounter procedure SOHAIL PICKERING Facility: Start: 09-23-2018 End: 09-24-2018 Patient encounter procedure DEFAULT PHYSICIAN Facility:[facility] Start: 08-19-2018 End: 08-20-2018 Patient encounter procedure DEFAULT PHYSICIAN Facility:[facility] Procedures Date Procedure Procedure Detail Performing Clinician Start: 08-25-2024 Ct cervical spine w/ o contrast material Rob Bennett MD Work Phone: Start: 08-25-2024 Ct head/brain w/o co ntrast material Rob Bennett MD Work Phone: Start: 08-25-2024 Blood count complete auto&auto difrntl wbc Mansour Phillip Vasquez DO Work Phone: Start: 08-25-2024 Ecg routine ecg w/le ast 12 lds w/i&r Rob Bennett MD Work Phone: Start: 08-25-2024 Basic metabolic pane l calcium total Rob Bennett MD Work Phone: Start: 01-13-2023 Mammography Cesar Austyn marleny DO Work Phone: Plan of Treatment Date Care Activity Detail Author Start: 11-05-2027 Screening for malign ant neoplasm of cervix [facility] Start: 08-29-2027 Screening for malign ant neoplasm of colon [facility] Start: 08-25-2027 Diabetes Screening Diabetes Screenin g [facility] Start: 06-22-2025 End: 06-22-2025 Patient encounter procedure 06/22/2025 3:00 PM EDT Office Visit Neurology [address] [place] [phone] Christofer Gandhi MD [facility] [address] [address] Return in about 6 weeks (around 06/20/2025) for Botox. Neurology Comment on above: Return in about 6 we eks (around 06/20/2025) for Botox. Start: 05-22-2025 Influenza vaccination Influenza Vacc ine (#1) [facility] Start: 05-09-2025 End: 08-08-2025 Ceruloplasmin [Mass/volume] in Serum or Plasma CERULOPLASMIN Lab Routine Dystonia Expected: 05/09/2025, Expires: 08/08/2025 [facility] Work Phone: Comment on above: Expected: 05/09/2025 , Expires: 08/08/2025 Start: 01-13-2025 Screening for malign ant neoplasm of breast Breast cancer screen [facility] Start: 12-01-2024 End: 12-01-2024 Patient encounter procedure NEERAJ ZUNIGA Comment on above: Arrived Start: 10-20-2024 End: 10-20-2025 Cobalamin (Vitamin B12) [Mass/volume] in Serum or Plasma Vitamin B12 Lab Routine Dystonia Muscle spasm Expected: 10/20/2024 (Approximate), Expires: 10/20/2025 [facility] Comment on above: Expected: 10/20/2024 (Approximate), Expires: 10/20/2025 Start: 10-20-2024 End: 10-20-2025 Copper, serum Copper, serum Lab Routine Dystonia Muscle spasm Expected: 10/20/2024 (Approximate), Expires: 10/20/2025 [facility] Comment on above: Expected: 10/20/2024 (Approximate), Expires: 10/20/2025 Start: 10-20-2024 End: 10-20-2025 Creatine kinase [Enzymatic activity/volume] in Serum or Plasma CK Lab Routine Dystonia Muscle spasm Expected: 10/20/2024 (Approximate), Expires: 10/20/2025 [facility] Work Phone: Comment on above: Expected: 10/20/2024 (Approximate), Expires: 10/20/2025 Start: 10-20-2024 End: 10-20-2025 Folate [Mass/volume] in Serum or Plasma Folate Lab Routine Dystonia Muscle spasm Expected: 10/20/2024 (Approximate), Expires: 10/20/2025 [facility] Comment on above: Expected: 10/20/2024 (Approximate), Expires: 10/20/2025 Start: 10-20-2024 End: 10-20-2025 Thyrotropin [Units/volume] in Serum or Plasma TSH Lab Routine Dystonia Muscle spasm Expected: 10/20/2024 (Approximate), Expires: 10/20/2025 [facility] Comment on above: Expected: 10/20/2024 (Approximate), Expires: 10/20/2025 Start: 05-22-2024 COVID-19 Vaccine ( season) COVID-19 [facility] ( season) [facility] Start: 05-22-2024 Influenza vaccination Influenza Vacc ine (#1) [facility] Start: 04-21-2024 Influenza vaccination Flu vaccine (# 1) [facility] Start: 01-14-2024 Screening for malign ant neoplasm of breast [facility] Start: 01-01-2024 Screening for malign ant neoplasm [facility] colon [facility] Start: 09-21-2023 Annual Wellness Visi t (Medicare Advantage) Annual Wellness Visit (Medicare Advantage) [facility] Start: 2016 Pneumococcal Vaccine : 50+ (1 of 1 - PCV) Pneumococcal Vaccine: 50+ (1 of 1 - PCV) [facility] Start: 2016 Shingles vaccine (1 of 2) Shingles vaccine (1 of 2) [facility] Start: 2016 Shingrix Vaccine (1 of 2) Shingrix Vaccine (1 of 2) [facility] Start: 2011 Lipid panel Lipid Screening [facility] Start: 2011 Screening for malign ant neoplasm of colon [facility] Start: 2006 Lipid panel Lipids [place] [employer] [facility] Start: 2001 Diabetes screen Diabetes screen [facility] Start: 1996 Screening for malign ant neoplasm of cervix [facility] Start: 1987 Screening for malign ant neoplasm of cervix [facility] Start: 1985 DTaP/Tdap/Td vaccine (1 - Tdap) DTaP/Tdap/Td vaccine (1 - Tdap) [facility] Start: 1985 Hepatitis B vaccine (1 of 3 - 19+ 3-dose series) Hepatitis B vaccine (1 of 3 - 19+ 3-dose series) [facility] Start: 1985 Urine microalbumin profile DTaP,Tdap,Td Vaccine (1 - Tdap) [facility] Start: 1984 Annual PCP Team [employer] domitila Disease Visit Annual PCP Team Chronic Disease Visit [facility] Start: 1984 Anxiety Screening Anxiety Screening [facility] Start: 1984 Depression Screening Depression Scre ening [facility] Start: 1984 Hepatitis C screening B on [facility] Start: 1984 HIV screening HIV Screening [facility] Start: 1981 HIV screening HIV screen [facility] Start: 1978 Depression Screen Depression Screen [facility] Start: 1966 Screening for malign ant neoplasm of colon [facility] EKG 12 Lead EKG 12 Lead ECG STAT 08/25/2024 9:51 PM EST [facility]: 08-25-2024 SPECIMEN REJECTION [facility] Blip Comment on above: Once for 1 Occurrenc es starting 08/25/2024 until 08/25/2024 Immunizations Immunization Date Immunization Notes Care Provider Cristino frank 05-26-2019 influenza virus vacc ine, unspecified formulation Cesar Hurt DO Work Phone: [facility] Healthcare Payers Date Payer Category Payer Self-pay 2024 Medicare [facility] MEDIC[facility] [address] [facility] COMM DUAL COMP PPO SNP [id number] 2024-Present [address] [address] [place] [address] [id number] 2023 Private Health Insurance [id number] 2023 Private Health Insurance [id number] 2022 Private Health Insurance [id number] 1966 Unknown [id number] 2.16.840.1.579435.3.579. 2. 1966 Unknown [id number] 2.16.840.1.414129.3.579. 2.647 1966 Unknown [id number] 2.16.840.1.334002.3.579. 2.593 1966 Unknown [id number] 2.16.840.1.285850.3.579. 2.718 1966 Unknown [id number] 2..840.1.025005.3.579. 2.1258 1966 Unknown [id number] 2.16.840.1.157804.3.579. 2.1258 1966 Unknown [id number] 2.16.840.1.314496.3.579. 2.1258 1966 Unknown [id number] 2.16.840.1.966552.3.579. 2.9 1966 Unknown [id number] 2.16.840.1.157751.3.579. 2.1258 1966 Unknown [id number] 2.16.840.1.787011.3.579. 2.9 1966 Unknown [id number] 2.16.840.1.186277.3.579. 2.1259 1959 Private Health Insurance [id number] Private Health Insurance [employer] [id number] Unknown Unknown [id number]. 2.531 Social History Date Type Detail Facility Unknown if ever smoked [employer] [facility] Start: 08-25-2024 End: 05-09-2025 Sex Assigned At [facility] [employer] Other Tobacco smoking stat [facility] Tobacco smoking consumption unknown [employer] Start: 08-25-2024 End: 05-09-2025 History of Social function [employer] How often to you hav e a drink containing alcohol? Never [employer] Start: 04-17-2016 How many standard drinks containing alcohol do you have on a typical day? Patient does not drink [employer] Start: 1965 Sex assigned at Not on file [employer] Start: 04-23-2024 End: 05-09-2025 Tobacco smoking status [facility] Ex-smoker [facility] End: 09-21-2009 History of tobacco use Current smoker [facility] End: 09-21-2009 History of tobacco use Cigarette Smoker [facility] Start: 04-23-2024 Tobacco use and exposure Smokeless tobacco non-user [facility] Start: 10-20-2024 End: 12-01-2024 Alcoholic beverage intake Ex-drinker (finding) [facility] Start: 10-21-2024 Sex Female (finding) [facility] Start: 1965 Sex Assigned At Female [facility] Start: 05-09-2025 Alcoholic beverage intake Current non-drinker of alcohol (finding) [facility] Clinical Notes 10-06-2023 to 05-09-2025 Christofer Gandhi MD - 05/09/2025 4:46 PM Leeanna Hurt DO - 12/01/2024 9:15 AM Leeanna Hurt DO - 10/20/2024 10:30 AM ESTJulia InstructionsAttachments Note Date & Type Note Facility 05-09-2025 Note HNO ID: [id number] Author: CHRISTOFER GANDHI MD Service: ? Author Type: Physician Type: Progress Notes Filed: 05/09/2025 18:41 Note Text: [facility] - NEW PATIENT EVALUATION Recording using MD Revolution software for draft documentation of the visit was discussed with the patient/authorized international account representative; all questions welcomed and answered. Patient/authorized international account representative agreed to proceed Primary Movement Disorders Neurologist: Christofer Gandhi MD Primary Movement Disorders KAVYA: Patient not appropriate for KAVYA Primary Care Provider: Sohail Pickering Jr, DO [address], [place] [address] Dear Sohail Pickering Jr, DO: I had the pleasure of evaluating Mrs. Ramos in our clinic today. As you know she is a 59 year old right-handed female who presents for evaluation of abnormal dyskinetic/dystonic movements since 2023. Subjective HISTORY OF PRESENT ILLNESS: Lisa Ramos is a 59-year-old female presenting for evaluation of involuntary movements and neck stiffness. She is accompanied by her mother and , who provide additional history. Lisa reports that her symptoms began in May with a kink in her neck, which has progressively worsened, leading to difficulty turning her neck. She describes the sensation as starting in her core and moving upward like a roller coaster through her body. Initially, the movements were confined to the left side but have since spread to the right side and closer to her throat. She also experiences tremors in her lips and tongue. She notes that the movements worsen with agitation and cold temperatures, stating, I can't even get cold now. The movements are more pronounced when lying flat and speaking but are less noticeable when sitting up and quiet. She reports difficulty swallowing both liquids and solids, sometimes needing to turn her head to swallow. She has not seen a speech therapist since these symptoms began. She also reports difficulty holding onto objects, stating, I just feel like I can't stay closed on it. She experiences numbness in her right hand, which pretty much goes completely to sleep. She does not endorse any issues with chewing or getting food down. She reports two episodes of syncope. The first occurred during a massage in August, where she felt nauseous and began sweating before losing consciousness. She was seated in a massage chair. She was reportedly unable to move her arms or legs and required assistance from EMS. The second episode occurred at home two months ago, where she just fell forward in her entryway. She does not endorse any other episodes of syncope or lightheadedness when standing up. She has a history of tachycardia, with a resting heart rate of 138 bpm, for which she is under the care of a datastage architect and is taking metoprolol. Her primary care physician has recommended a diuretic for swelling, but she has not started it yet. She has not tried any medications for her current symptoms. She was previously prescribed tizanidine and risperidone by her neurologist, but she did not take them. She planned to get treatment with Botox but has not the injections, as her neurologist was unable to schedule her for the procedure. She denies exposure to dopamine blocking medications. She has a history of back pain and is currently taking gabapentin 1800 mg daily. She has tried Flexeril in the past but not for her current symptoms. She was previously on Vyvanse but stopped taking it around the time her symptoms began. She describes herself as a very busy person and reports that her OCD and ADHD symptoms have escalated since her current symptoms began. Her agrees. She does not endorse any depression but reports feeling frustrated and agitated due to her symptoms. She is concerned about her mobility and ability to continue her daily activities, stating, I really don't have time for this. Her 's health issues add to her stress. She does not see psychiatry or psychology currently but is open to it. Movement Disorders Medications Schedule - as of the start of the visit: Medications Questionnaires In addition, the following areas that may be affected by abnormal involuntary movements were evaluated: Daily activities Difficulties with eating: Yes (mild) Difficulties in dressing: Yes (slight) Difficulties with hygiene activities: 0 (none) Difficulties with handwriting: Yes (slight) Difficulties with doing hobbies and other activities: Yes (slight) Difficulties turning in bed: Yes (slight) Difficulties getting out of bed, car or chair: Yes (slight) Tremors/Gait/Balance Shaking or tremors: Yes (slight) Walking and balance problems: Yes (slight) Number of falls in the Last Month: Gait freezin (none) Autonomic/Pain Lightheadeness on standing: Yes (slight) Urinary problems: Yes (slight) Constipation problems: Yes (slight) P (more content not included)... [facility] 05-09-2025 History of Present illness Narrative [facility] - NEW PATIENT EVALUATION Recording using MD Revolution software for draft documentation of the visit was discussed with the patient/authorized international account representative; all questions welcomed and answered. Patient/authorized international account representative agreed to proceed Primary Movement Disorders Neurologist: Christofer Gandhi MD Primary Movement Disorders KAVYA: Patient not appropriate for KAVYA Primary Care Provider: Sohail Pickering Jr, DO [address], [place] [address] Dear Sohail Pickering Jr, DO: I had the pleasure of evaluating Mrs. Ramos in our clinic today. As you know she is a 59 year old right-handed female who presents for evaluation of abnormal dyskinetic/dystonic movements since 2023. Subjective HISTORY OF PRESENT ILLNESS: Lisa Ramos is a 59-year-old female presenting for evaluation of involuntary movements and neck stiffness. She is accompanied by her mother and , who provide additional history. Lisa reports that her symptoms began in May with a kink in her neck, which has progressively worsened, leading to difficulty turning her neck. She describes the sensation as starting in her core and moving upward like a roller coaster through her body. Initially, the movements were confined to the left side but have since spread to the right side and closer to her throat. She also experiences tremors in her lips and tongue. She notes that the movements worsen with agitation and cold temperatures, stating, I can't even get cold now. The movements are more pronounced when lying flat and speaking but are less noticeable when sitting up and quiet. She reports difficulty swallowing both liquids and solids, sometimes needing to turn her head to swallow. She has not seen a speech therapist since these symptoms began. She also reports difficulty holding onto objects, stating, I just feel like I can't stay closed on it. She experiences numbness in her right hand, which pretty much goes completely to sleep. She does not endorse any issues with chewing or getting food down. She reports two episodes of syncope. The first occurred during a massage in August, where she felt nauseous and began sweating before losing consciousness. She was seated in a massage chair. She was reportedly unable to move her arms or legs and required assistance from EMS. The second episode occurred at home two months ago, where she just fell forward in her entryway. She does not endorse any other episodes of syncope or lightheadedness when standing up. She has a history of tachycardia, with a resting heart rate of 138 bpm, for which she is under the care of a datastage architect and is taking metoprolol. Her primary care physician has recommended a diuretic for swelling, but she has not started it yet. She has not tried any medications for her current symptoms. She was previously prescribed tizanidine and risperidone by her neurologist, but she did not take them. She planned to get treatment with Botox but has not the injections, as her neurologist was unable to schedule her for the procedure. She denies exposure to dopamine blocking medications. She has a history of back pain and is currently taking gabapentin 1800 mg daily. She has tried Flexeril in the past but not for her current symptoms. She was previously on Vyvanse but stopped taking it around the time her symptoms began. She describes herself as a very busy person and reports that her OCD and ADHD symptoms have escalated since her current symptoms began. Her agrees. She does not endorse any depression but reports feeling frustrated and agitated due to her symptoms. She is concerned about her mobility and ability to continue her daily activities, stating, I really don't have time for this. Her 's health issues add to her stress. She does not see psychiatry or psychology currently but is open to it. Movement Disorders Medications Schedule - as of the start of the visit: Medications Questionnaires In addition, the following areas that may be affected by abnormal involuntary movements were evaluated: Daily activities Difficulties with eating: Yes (mild) Difficulties in dressing: Yes (slight) Difficulties with hygiene activities: 0 (none) Difficulties with handwriting: Yes (slight) Difficulties with doing hobbies and other activities: Yes (slight) Difficulties turning in bed: Yes (slight) Difficulties getting out of bed, car or chair: Yes (slight) Tremors/Gait/Balance Shaking or tremors: Yes (slight) Walking and balance problems: Yes (slight) Number of falls in the Last Month: Gait freezin (none) Autonomic/Pain Lightheadeness on standing: Yes (slight) Urinary problems: Yes (slight) Constipation problems: Yes (slight) Pain and other sensations: Yes (moderate) Speech/Swallowing Speech problems: Yes (slight) Drooling: Yes (slight) Chewing and swallowing problems: Yes (slight) Sleep/Fatigue Sleep problems: Yes (moderate) Daytime sleepiness: 0 (none) Fatigue: 0 (none) Mood/Behavior Depression: PHQ-9 Score: 2 usually representing no significant (0-4) depression. Anxiety: GHANSHYAM-7 Total Score: 10 usually representing moderate (10-14) anxiety. Finally, the following table shows the patient's overall global physical and mental health using the PROMIS scale: PROMIS-10 Flowsheet Row Office Visit from 05/09/2025 in Neurology Office Visit from 07/24/2016 in Neurosurgery Global Physical Health T Score 47.7 47.7 Global Mental Health T Score 48.3 43.5 0-10 Standard Pain Scale 3 6 *PROMIS-10 scoring scale: mean = 50, over 50 is above average, under 50 is below average ALLERGIES No Known Allergies Current Outpatient Medications Medication Sig ezetimibe (ZETIA) 10 mg tablet Take 10 mg by mouth every other day. metoprolol tartrate, short acting, (LOPRESSOR) 25 mg tablet Take 25 mg by mouth once daily. (Patient taking differently: Take 50 mg by mouth once daily.) gabapentin (NEURONTIN) 600 mg tablet Take 600 mg by mouth three times a day. levothyroxine (SYNTHROID) 50 mcg tablet Take 50 mcg by mouth daily before breakfast. fluvastatin XL (LESCOL XL) 80 mg 24 hr tablet Take 80 mg by mouth once daily. CHOLECALCIFEROL, VITAMIN D3, (CHOLECALCIFEROL, VIT D3,,BULK, MISC) (Patient taking differently: 1,250 mg two times a week.) IBUPROFEN (MOTRIN ORAL) Take by mouth. ACETAMINOPHEN (TYLENOL ORAL) Take by mouth. tiZANidine (ZANAFLEX) 2 mg tablet Take 1-2 tablets every 6 hours as needed for spasms No current facility-administered medications for this visit. Past Medical and Surgical History: has a past medical history of Arthritis, Back pain (1995), Former smoker, Former smoker, High cholesterol, Hypothyroid, and Pneumonia. has a past surgical history that includes hysterectomy hx. SOCIAL HISTORY[1] Family History: family history includes Alcohol abuse in her father; Arthritis in her maternal grandmother and mother; Blood Disease in her brother; Cancer in her paternal grandmother; Diabetes in her maternal grandmother; Heart Failure in her maternal grandfather; Hypertension in her mother and sister; Seizures in her father; Stroke in her father and paternal grandfather. Objective Vital Signs: Wt 75.6 kg (166 lb 10.7 oz) SpO2 100% BMI 29.52 kg/m Orthostatic Vitals: Sitting: BP 136/77 Pulse 66 Standing: BP 127/76 Pulse 68 Weight: 75.6 kg (166 lb 10.7 oz) No LMP recorded. Patient has had a hysterectomy. Body mass index is 29.52 kg/m . Neurological Exam Mental Status Awake and alert. no dysarthria present. Language is fluent with no aphasia. Rare stuttering. Cranial Nerves CN III, IV, : Extraocular movements intact bilaterally. CN V: Facial sensation is normal. CN VII: Full and symmetric facial movement. CN XI: Shoulder shrug strength is normal. CN XII: Tongue midline without atrophy or fasciculations. Motor Normal muscle tone. The following abnormal movements were seen: Frequent pulling of left>right corner of the mouth, activation of platysma. She can stop it briefly with concentration when asked. Inconsistent cessation of the movement with distraction. No obvious dyskinetic movements of the lips or tongue. No head or hand tremors. No bradykinesia. Good cervical ROM. No abnormal head posture. Right Left Shoulder abduction 5 5 Elbow flexion 5 5 Wrist extension 5 5 Hip flexion 5 5 Knee flexion 5 5 Dorsiflexion 5 5 Sensory Light touch is normal in upper and lower extremities. Reflexes Right Left Brachioradialis 1+ 1+ Biceps 1+ 1+ Patellar 2+ 2+ Achilles 1+ 1+ Coordination Right: Lzgots-er-mlug normal. Rapid alternating movement normal. Ktrf-gr-wkdj normal.Left: Maoxgu-ei-ayqi normal. Rapid alternating movement normal. Kasl-es-mail normal. Gait Casual gait is normal including stance, stride, and arm swing.Normal toe walking. Normal heel walking. Normal tandem gait. Romberg is absent. Pertinent Studies Brain MRI without contrast 09/22/2024 Impression: Within the limitations of motion artifact, no discrete acute intracranial abnormality identified. Mild T2/FLAIR signal abnormality in the supratentorial white matter, most likely based on chronic microvascular ischemia or migraine headaches CT cervical spine 08/25/2024 BONES/ALIGNMENT: There is no acute fracture or [...] paraspinal soft tissue abnormality. Mild calcific atherosclerosis. Impression 1. No acute osseous abnormality of the cervical spine. 2. Mild degenerative changes. Head CT 08/25/2024 BRAIN/VENTRICLES: There is no acute intracranial hemorrhage, [...] of the visualized skull or soft tissues. Impression No acute intracranial abnormality. Assessment and Plan: Assessment Mrs. Ramos is a right-handed 59 year old year old female with abnormal dyskinetic/dystonic movements. Onset of symptoms was gradual over a few months. Symptoms are worse with agitation. Her long-standing OCD/ADHD-like symptoms are felt to be worse since these movements started. Suspect there may be a functional element. Medical work-up has been completed. Unremarkable brain MRI. Added ceruloplasmin. Recommend seeing psychiatry and psychology. Will try tizanidine for the spasms/movements. Recommend trial of Botox if muscle relaxant is not effective. Plan to inject platysma, possibly trapezius, scalenes, depressor anguli angelica, masseters. The following are the current problems noted and addressed during this visit: Dystonia (primary encounter diagnosis) Obsessive-compulsive disorder, unspecified type Attention deficit hyperactivity disorder (adhd), unspecified adhd type Plan 05/09/2025 Visit: 1. Dystonia (G24.9) - dystonia with cervical and orofacial involvement; symptoms include neck stiffness, facial pulling, dysarthria, dysphagia, and tremors. - Reviewed previous workup: MRI brain (09/22), labs (copper, TSH, B12, folate, CK) all RE reportedly normal with outside neurologist. - Reviewed prior neurology notes from Dr. Cesar Hurt (November), including Zanaflex and risperidone recommendations; patient states that she did not trial these medications. - Start tizanidine 2 mg PO up to QID PRN spasms; discussed potential side effects including sedation and advised caution with activities requiring alertness. - Order ceruloplasmin. - Discussed Botox as a treatment option; explained procedure, risks (e.g., dysphagia if injected into swallowing muscles), and need for ongoing injections every 3 months if effective; patient expressed interest. - Begin prior authorization process for Botox; schedule injection in 4-6 weeks. - Refer to psychiatry and psychology (virtual visits available) to address emotional triggers that may exacerbate dystonia symptoms. - Follow-up in 3 months to assess response to tizanidine and progress with psychiatry/psychology prior to Botox. 2. Obsessive-compulsive disorder, unspecified type (F42.9) 3. Attention deficit hyperactivity disorder (ADHD), unspecified ADHD type (F90.9) - Longstanding OCD and ADHD; symptoms may be contributing to dystonia exacerbations. - Refer to psychiatry and psychology for evaluation and management. 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 Procedure Note: 18711 Neurotoxin: Yes Botox: [id number] Dose: 200 units Administered with EMG guidance: Yes Patient's perception of importance for healthcare provider to let them know of research trials for which they may be eligible? Somewhat important Updated Movement Disorders Medication Schedule: Medications Level of service : 52093 + 1 units 69801 ( > 89 min, [id number] for each 15 min > 89 min). Time spent 103 min on the day of service, which included preparing to see the patient, naqv-xc-agly patient care, completing clinical documentation, obtaining and/or reviewing separately obtained history, performing a medically appropriate examination, counseling and educating the patient/family/caregiver, ordering medications, tests, or procedures, and care coordination (not separately reported). Thank you for allowing me to be part of the clinical care of this patient! I look forward to continued participation in the patient s care with you. Please do not hesitate to call with any questions. Sincerely, Christofer Gandhi MD [1] Social History Tobacco Use Smoking status: Former Current packs/day: 1.00 Average packs/day: 1 pack/day for 17.0 years (17.0 ttl pk-yrs) Types: Cigarettes Substance Use Topics Alcohol use: No Drug use: No documented in this encounter [facility] 12-01-2024 History of Present illness Narrative Images from the original note [...] Dystonia - risperiDONE (RisperDAL) 0.5 MG tablet; /2-1 po q hs - tiZANidine (Zanaflex) 4 [...] clinic: 6-8 weeks documented in this encounter [facility] 10-20-2024 History of Present illness Narrative Chief Complaint Patient presents with [...] episodes of passing out. She went to [facility]. She was having issues using her arms [...] clinic: 6-8 weeks documented in this encounter [facility] 08-26-2024 Hospital Discharge instructions Rob Bennett MD - 08/26/2024 12:57 AM EST Be sure to follow-up with your primary care provider. Return to emergency department for any acutely worsening/any symptoms or any other acute concerns. The following attachments cannot be sent through Care Everywhere.Fainting (Surinamese)documented in this encounter [facility] 05-27-2024 Note Cardiology Clinic No te Subjective [...] Rfl: 3 ergocalciferol (Vitamin D-2) 1.25 MG (74739 Units) capsule, Take 1 capsule twice a [...] 2. Mixed hype (more content not included)... [facility] Note Patient Education Ma terials Follows: [...] under your knee. General instructions ? Take jfkx-wtf-feuapgk and prescription medicines only as told by [...] provider. Document Revised: 02/20/2021 Document Reviewed: 02/20/2021 [employer] Patient Education ? 2022 [employer] Tendinitis Tendinitis is inflammation of a [...] the same mo (more content not included)... [facility] 10-06-2023 Evaluation note Encounter Date Diagnosis [...] understanding and is agreeable to treatment plan [facility] Other Evaluation note* Diagnosis Vasovagal episode- Primary Syncope and collapse [facility] Diagnosis Dystonia- Primary Abnormal involuntary movements Muscle spasm Spasm of muscle Syncope, unspecified syncope type documented in this encounter [facility] HealthcareEvaluation noteNo assessment information availableSam[facility] Work Phone: Evaluation note* Diagnosis Dystonia- Primary Abnormal involuntary movements Muscle spasm Spasm of muscle Motor tic disorder (CMS/HCC) Tic disorder, unspecified Syncope, unspecified syncope type documented in this encounter [facility] HealthcareEvaluation note* Diagnosis Dystonia- Primary Abnormal involuntary movements Obsessive-compulsive disorder, unspecified type Attention deficit hyperactivity disorder (ADHD), unspecified ADHD type documented in this encounter [facility] [place] [facility] general Narrative - Reported* Type Description Date Medical History HTN Medical History Hypothyroidism Medical History hypercholesterolemia Medical History Rapid Heartbeat Medical History seasonal allergies Surgical History hysterectomy Hospitalization History See Above [facility] Other Summary Purpose Family History No Family [...] and content) DATE CREATED AUTHOR 09/24/2018 [facility] DATE CREATED AUTHOR AUTHOR'S ORGANIZ ATION 04/09/2020 [facility] DATE CREATED AUTHOR AUTHOR'S ORGANIZ ATION 01/28/2024 [facility] DATE CREATED AUTHOR AUTHOR'S ORGANIZ ATION 07/05/2024 [facility] DATE CREATED AUTHOR AUTHOR'S ORGANIZ ATION 10/30/2024 [facility] DATE CREATED AUTHOR AUTHOR'S ORGANIZ ATION 12/04/2024 [facility] EPIC DATE CREATED AUTHOR AUTHOR'S ORGANIZ ATION 05/11/2025 [facility] REASON FOR VISIT (unrecogniz ed section and content) Reason Comments Dizziness Reason Comments Tremors Syncope Specialty Diagnoses / Procedures Referred By Contac t Referred To Contact Neurology Diagnoses Syncope and collapse Tremor, unspecified Procedures [place] OFFICE/OUTPATIENT [facility] Sohail Pickering MD [address] [place] [address] Phone: tel: fax: Giancarlo Chaparro MD [address] [place] [address] Phone: tel: fax: Referral ID Status Reason Start Date Expiration Date V isits Requested Visits Authorized [id number] Closed Consult and Treat 09/09/2024 03/08/2025 1 1 Reason Comments dystonia Reason Comments New Patient Care Teams (unrecognized sec tion and content) Irrigation Worker Relationship Specialty Start Date End Date Sohail Pickering MD [facility] [place], [place] [id number] PCP - General Internal Medicine 12/31/23 Team Status: Active Member Role Status Dates Sohail Pickering JR DO Primary Care Provider Active Team Status: Inactive Member Role Status Dates Sohail Pickering JR DO Primary Care Provider Active Start: October 20, 2024 End: October 20, 2024 Cesar Hurt DO Attending Provider Active Sta rt: October 20, 2024 End: October 20, 2024 Irrigation Worker Relationship Specialty Start Date End Date Shoail Pickering MD [facility] [place] [address] PCP - General Internal Medicine 12/31/23 Cesar Hurt DO [address] [place] [address] Referring Physician Neurology 12/01/24 Irrigation Worker Relationship Specialty Start Date End Date Sohail Pickering MD [facility] [place] [address] PCP - General Internal Medicine 12/31/23 Cesar Hurt DO [address] [place] [address] Referring Physician Neurology 12/01/24 Irrigation Worker Relationship Specialty Start Date End Date Sohail Pickering Jr., DO [facility] [place] [address] PCP - General Internal Medicine 04/17/16 Goals (unrecognized section and content) Goals may be documented in a n alternate section Source Comments (unrecognize d section and content) In the event this informatio n is protected by the Federal Confidentiality of Alcohol and Drug Abuse Patient Records regulations: The Federal rules restrict any use of the information to criminally investigate or prosecute any alcohol or drug abuse patient.[facility] FOR RECORDS PERTAINING TO PATIENTS WHO ARE [...] BE BASED ON THE PRIMARY CLINICAL RECORDS. [facility] [facility]. provides no warranty or guarantee of the accuracy or completeness of information in this document.
== END 2025-05-11 11:21 | disposition home or self-care (01) ==
LOC: LAB 11:23
PROVIDERS: PCP Internal Medicine
DX: G24.9 Dystonia, unspecified (principal)
CPT/HCPCS: 36415; 82390

== ENCOUNTER 2025-08-23 10:24 | Outpatient (OUT) | payer OTHER, SELFPAY ==
--- OUTSIDE RECORDS SUMMARY | 2025-08-23 10:30 | XMS_ITS | Clinical Summary ---
Author Organization CareParent s tem Address [id number] [place] [address] Care Team Providers Care Contract Manager Name Role Phone Fuad Wiggins DO, Charles L Primary Care Provider Social History Tobacco UseTypesPacks/DayYears UsedDateSmoking Tobacco: Never AssessedChildcare AnswerDate CifdupbqPelsbfgpbBkfaqbs74/12/2019EmploymentAnswerDate Recorded ClpghxxvmtReuhwoz96/12/2019Purpose - LifeAnswerDate RecordedPurpose and direction in lzurTwuhhmo38/11/2021CommentsUnknownSex and Gender InformationValueDate RecordedSex Assigned at BirthNot on fileLegal SexFemale 04/26/2015 11:36 AM EDTGender IdentityNot on fileSexual OrientationNot on file Plan of Treatment Not on file Medical Devices Not on file Insurance Care Teams Team MemberRelationshipSpecialtyStart DateEnd Date Sohail Merida Jr., DO [address] [place] [address] PCP - GeneralInternal Medicine04/14/17
--- OUTSIDE RECORDS SUMMARY | 2025-08-23 10:31 | XMS_ITS | Clinical Summary ---
Author Organization [facility] 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 Role Phone Unavailable Primary Care Provider Unavailabl e Allergies No known active allergies Medications No known medications Social History Tobacco UseTypesPacks/DayYears UsedDateSmoking Tobacco: Never AssessedAUDIT-C AnswerDate RecordedQ1: How often do you have a drink containing alcohol?Never 08/25/2024Q2: How many drinks containing alcohol do you have on a typical day when you are drinking?Patient does not drink08/25/2024Q3: How often do you have six or more drinks on one occasion?Never08/25/2024Interpersonal Safety Domain Source: IP Abuse ScreeningAnswerDate RecordedPhysical pwwxvFaynrb80/05/2024 Verbal eqvjuAmqxum30/05/2024Emotional ryuomFneruy46/05/2024Financial abuseDenies 08/25/2024Sexual cvaihKmlenp38/05/2024CommentsUnknownSex and Gender InformationValueDate RecordedSex Assigned at BirthNot on fileLegal SexFemale 10/31/2012 11:38 AM ESTGender IdentityNot on fileSexual OrientationNot on file Last Filed Vital Signs Vital SignReadingTime TakenCommentsBlood Vztyrumb326/5508/26/2024 12:30 AM EST Lvshl803208/26/2024 12:30 AM FSTDtylzonpeyq48.5 ??C (97.7 ??F)08/25/2024 10:17 PM ESTRespiratory Pkza479410/27/2023 12:30 AM ESTOxygen Mdechjslrz15%08/26/2024 12:30 AM ESTInhaled Oxygen Concentration--Zrpssp55.3 kg (155 lb)08/25/2024 8:55 PM EST Igdxis550.5 cm (5' 2 )08/25/2024 8:55 PM ESTBody Mass Index28.35110/26/2023 8:55 PM EST Plan of Treatment Health MaintenanceDue DateLast DoneCommentsDepression Lwxkpc7809/05/1978HIV screen 1981Hepatitis C bduwjq2809/05/1984DTaP/Tdap/Td vaccine (1 - Tdap)1985 Hepatitis B vaccine (1 of 3 - 19+ 3-dose series)1985Pap smear1987 Cervical cancer rfetad8209/05/1996HPV (without or with Pap)1996Diabetes lfnlnv8709/05/20017451Iyeshe19/16/0380Ifdigdxayte55/16/2011FIT/FOBT: Average risk 2011Sigmoidoscopy/CT xihkhahreqhe95/16/2011Pneumococcal 50+ years Vaccine (1 of 1 - PCV)2016Shingles vaccine (1 of 2)2016Colorectal Cancer Qnzjiu3001/01/2024Fecal-DNA (Cologuard): Average risk/nnual Wellness Visit (Medicare Advantage)5Breast cancer tbqgkc9101/13/2025 01/13/2023, 03/27/2021, 09/04/2020, Additional history existsFlu vaccine (#1) 5COVID-19 Vaccine ( season)2025Hepatitis A vaccineAged OutNo longer eligible based on patient's age to complete this topicHib vaccine Aged OutNo longer eligible based on patient's age to complete this topic Meningococcal (ACWY) vaccineAged OutNo longer eligible based on patient's age to complete this topicMeningococcal B vaccineAged OutNo longer eligible based on patient's age to complete this topicPolio vaccineAged OutNo longer eligible based on patient's age to complete this topic Insurance * Guarantor: Mina Arteaga TypeRelation to PatientDate of BirthPhone Billing AddressPersonal/BdagjuVvjc[address] [place] [address] [place] [id number]
--- OUTSIDE RECORDS SUMMARY | 2025-08-23 10:31 | XMS_ITS | Clinical Summary ---
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 Name Role Phone Fuad Wiggins DO, Charles Lewis Primary Care Provi carrington Allergies No known active allergies Medications MedicationSigDispense QuantityRefillsLast FilledStart DateEnd DateStatus levothyroxine (SYNTHROID) 50 mcg tablet Take 50 mcg by mouth daily before breakfast.Active fluvastatin XL (LESCOL XL) 80 mg 24 hr tablet Take 80 mg by mouth once daily.Active CHOLECALCIFEROL, VITAMIN D3, (CHOLECALCIFEROL, VIT D3,,BULK, MISC) Active IBUPROFEN (MOTRIN ORAL) Take by mouth.Active ACETAMINOPHEN (TYLENOL ORAL) Take by mouth.Active metoprolol tartrate, short acting, (LOPRESSOR) 25 mg tablet Take 25 mg by mouth once daily.Active gabapentin (NEURONTIN) 600 mg tablet Take 600 mg by mouth three times a day.Active ezetimibe (ZETIA) 10 mg tablet Take 10 mg by mouth every other day.5Active tiZANidine (ZANAFLEX) 2 mg tablet Indications:DystoniaTake 1-2 tablets every 6 hours as needed for spasms 450 tablet 5Active Active Problems ProblemNoted DateDiagnosed DateSacroiliac joint pain07/24/2016ArthritisHigh cholesterolBack painFormer smokerHypothyroid Encounters DateTypeDepartmentCare WwsiRdnlqsnpnzb45/30/2025 9:00 AM EDTOffice Visit Neurology [address] [phone] Mis Gandhi MD Cervical dystonia (Primary Dx); Orofacial dystonia; Vvasrxiq83/25/2025Travelfrom Last 3 Months Family History Medical HistoryRelationCommentsBlood DiseaseBrotherAlcohol abuseFatherSeizures FatherStrokeFatherHeart FailureMaternal GrandfatherArthritisMaternal Grandmother DiabetesMaternal GrandmotherArthritisMotherHypertensionMotherStrokePaternal GrandfatherCancerPaternal GrandmotherHypertensionSisterRelationStatusComments BrotherFatherMaternal GrandfatherMaternal GrandmotherMotherPaternal Grandfather Paternal GrandmotherSister Social History Tobacco UseTypesPacks/DayYears UsedDateSmoking Tobacco: RfrcszBibdvzozss531 Tobacco Cessation:Counseling Given: Not Answered Alcohol UseStandard Drinks/WeekCommentsNo0 (1 standard drink = 0.6 oz pure alcohol)PHQ-2AnswerDate RecordedPHQ-2 jpgve438rea Deprivation Index AnswerDate RecordedNational Score (1-100), lower number is lower risk63 06/20/2025State Score (1-10), lower number is lower nnvu999Data from: https://www.neighborhoodatlas.medicine.[facility].edu/. 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 working, salesNot on fileNot on fileNot on file Last Filed Vital Signs Vital SignReadingTime TakenCommentsBlood Onhyqpew134/7009 8:56 AM EDT Mdmhr812006/20/2025 8:56 AM EDTTemperature--Respiratory Emmp0493 2:05 PM EDTOxygen Xpiulndcrb869%06/20/2025 8:56 AM EDTInhaled Oxygen Concentration-- Ediebt60.8 kg (160 lb 7.9 oz)06/20/2025 8:56 AM RZELwrglu011 cm (5' 3 ) 07/24/2016 2:05 PM EDTself report ht/wtBody Mass Index28.43109/23/2015 2:05 PM EDT Plan of Treatment DateTypeDepartmentCare Team (Latest Contact Info)Flpcdlrduib26/30/2025 10:30 AM ESTOffice Visit Neurology [address] [facility] [address] [place] [address] Mis Gandhi MD [address] [facility] [address] [place], [place] [id number] Return in about 3 months (around 09/19/2025) for Botox.Health MaintenanceDue DateLast DoneCommentsAnnual PCP Team Chronic Disease Visit1984Anxiety Xbvhanjka78/16/1984Depression Lagwkwlog04/16/1984HIV Jcqpmysqv18/16/1984 Hepatitis C Ecmqdrzpn96/16/1984DTaP,Tdap,Td Vaccine (1 - Tdap)1985 Hepatitis B Vaccine (1 of 3 - 19+ 3-dose series)1985Cervical Cancer Rxevzhskt67/16/1987CT Cjdiansstumv09/16/1995Jegtvktkdeu76/16/2011Fecal Occult Blood2011Lipid Jswtvyfym07/16/9694Mndculcscacqr83/16/2011Pneumococcal Vaccine: 50+ (1 of 1 - PCV)2016Shingrix Vaccine (1 of 2)2016 Mammogram Spurhorsy67/25/916182/, 01/13/2023, 09/04/2020, Additional history existsCovid-19 Vaccine (2024- season)505/, 01/21/2021Influenza Vaccine (#1)/01/2019Diabetes Orvsamsiw74/05/2027 4Cologuard (FIT-DNA)/05/2024, 1Colorectal Cancer Bmkteezod94/09/2027 Insurance * Guarantor: Tatiana Arteaga TypeRelation to PatientDate of BirthPhone Billing AddressPersonal/VkhqfzBhwz13/ [address] [place] [address] Care Teams Team MemberRelationshipSpecialtyStart DateEnd Date Sohail Merida Jr., [facility] [place] [address] PCP - GeneralInternal Medicine04/17/16
--- OUTSIDE RECORDS SUMMARY | 2025-08-23 10:31 | XMS_ITS | Clinical Summary ---
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 Name Role Phone Sohail Merida MD Primary Care Provider [phone] Allergies Active AllergyReactionsCriticalityNoted DateCommentsCarvedilolNausea Only 04/29/2023RosuvastatinNausea Only04/29/2023Sage TrhSzmyrmv80/25/2024 Medications MedicationSigDispense QuantityRefillsLast FilledStart DateEnd DateStatus ergocalciferol (Vitamin D-2) 1.25 MG (42119 Units) capsule Take 1 capsule twice a week by oral route for 90 days.Active fluvastatin XL (Lescol XL) 80 mg 24 hr tablet Take 1 tablet every day by oral route for 90 days.Active gabapentin (Neurontin) 600 mg tablet Take by oral route for 90 days.Active icosapent ethyL (Vascepa) 1 gram capsule Take 1 capsule every day by oral route for 90 days.Active levothyroxine (Synthroid) 50 mcg tablet Take 1 tablet every day by oral route for 90 days.Active montelukast (Singulair) 10 mg tablet Take 1 tablet by mouth in the morning.Active Vyvanse 50 mg capsule Take 50 mg by mouth in the morning.3Active atorvastatin (Lipitor) 80 mg tablet Indications:Hyperlipidemia, unspecified hyperlipidemia typeTake 1 tablet (80 mg) by mouth at bedtime. 90 tablet ctive ezetimibe (Zetia) 10 mg tablet Take 10 mg by mouth every other day.5Active tiZANidine (Zanaflex) 4 mg tablet Take 4 mg by mouth every 6 (six) hours if needed.Active metoprolol succinate XL (Toprol-XL) 50 mg 24 hr tablet Indications:Palpitations,Inappropriate sinus tachycardiaTake 1 tablet (50 mg) by mouth in the morning. 90 tablet ctive metoprolol succinate XL (Toprol-XL) 50 mg 24 hr tablet Indications:Palpitations,Inappropriate sinus tachycardiaTake 1 tablet (50 mg) by mouth once daily as directed. Do not crush or chew. 30 tablet Discontinued Active Problems ProblemNoted DateDiagnosed PmrqXtwsujtmgaxp50/25/9411Xdpzfqvbc97/09/2023 04/29/2023ack painFormer xjdmhj97High bqlctgcirry78HypothyroidTachycardia Sacroiliac joint pain Encounters DateTypeDepartmentCare QdkhZtlxtiitcln32/05/2025[facility] [address] [facility] [place] [address] Robe Cannon MD Palpitations; Inappropriate sinus vyqlnkmmpeq58/22/2025 1:40 PM EDTOffice Visit [facility] [address] [facility] [place] [address] Robe Cannon MD Inappropriate sinus tachycardia (Primary Dx); Ywkzegiadvdo15/08/2025Ref[facility] [address] [facility] [place] [address] Maye Schilling MA Hhywnilsylvk83/06/2025Ref[facility] [address] [facility] [place] [address] Maye Schilling MA Gtnpdmewdcxn40/06/2025Ref[facility] [address] [facility] [place] [address] Maye Schilling MA from Last 3 Months Family History Medical HistoryRelationNameCommentsepilepsyFatherHeart attackMaternal GrandfatherRelationNameStatusCommentsFatherDeceasedMaternal GrandfatherMother Alive Social History Tobacco UseTypesPacks/DayYears UsedDateSmoking Tobacco: FormerCigarettesQuit: 2000Smokeless Tobacco: Never Tobacco Cessation:Counseling Given: Not Answered Alcohol UseStandard Drinks/WeekCommentsNot Currently0 (1 standard drink = 0.6 oz pure alcohol)UT Safety & EnvironmentAnswerDate RecordedFear of Current or Ex-PartnerNot on file11/12/2023Emotionally AbusedNot on file11/12/2023hysically AbusedNot on file11/12/2023Sexually AbusedNot on file11/12/2023hysically or Sexually AbusedNot on 11/12/2023CommentsUnknownSex and Gender InformationValueDate RecordedSex Assigned at YubzlKjirnl44/22/2025 1:38 PM EDT Legal KudBarqxo61/30/2022 12:10 AM EDTGender HicfolpqTruavp44/22/2025 1:38 PM EDTSexual OrientationHeterosexual or Futryzkv24/22/2025 1:38 PM EDT Last Filed Vital Signs Vital SignReadingTime TakenCommentsBlood Cabsbruw825/6007/12/2025 1:52 PM EDT Mayca586707/12/2025 1:52 PM EDTTemperature--Respiratory Rate--Oxygen Cknzkrqtms64% 07/12/2025 1:52 PM EDTInhaled Oxygen Concentration--Wszrdk99.9 kg (163 lb) 07/12/2025 1:52 PM TRCKxmvch037 cm (5' 3 )07/12/2025 1:52 PM EDTBody Mass Index 28.8707/12/2025 1:52 PM EDT Plan of Treatment Health MaintenanceDue DateLast DoneCommentsCT Mcmdypedmqpr1966Colonoscopy 1966FOBT1966 8662Nkfuvjtxoesyr1966Depression Frwdypvoh63/16/1978 Hepatitis B Vaccines (1 of 3 - 19+ 3-dose series)1985Pap Smear1987 Adult Xwmbrxe1209/05/1988Cervical Cancer Txdpbqmmn18/16/1996HPV/Cwedko2809/05/1996 Zoster Vaccines (1 of 2)09/05/20162218Sezgxqglz84/25//OVID-19 Vaccine (3 - season)/, 01/21/2021Influenza Vaccine (#1) /01/20192667WUD61/olorectal Cancer Jebolpaax27/09/2027 FIT-DNA/05/2024HIB VaccinesAged OutNo longer eligible based on patient's age to complete this topicHPV VaccinesAged OutNo longer eligible based on patient's age to complete this topicIPV VaccinesAged OutNo longer eligible based on patient's age to complete this topicMeningococcal B VaccineAged OutNo longer eligible based on patient's age to complete this topicMeningococcal VaccineAged OutNo longer eligible based on patient's age to complete this topic Pneumococcal Vaccine: Pediatrics (0 to 5 Years) and At-Risk Patients (6 to 64 Years)Aged OutNo longer eligible based on patient's age to complete this topic Rotavirus VaccinesAged OutNo longer eligible based on patient's age to complete this topic Insurance Care Teams Team MemberRelationshipSpecialtyStart DateEnd Date Sohail Merida MD [facility] [place] [address] [facility]04/27/23
--- OUTSIDE RECORDS SUMMARY | 2025-08-23 10:31 | XMS_ITS | Clinical Summary ---
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 Role Phone Sohail Merida MD Primary Care Provider [phone] Lyubov Zarate DO Unavailable [phone] Allergies Active AllergyReactionsCriticalityNoted DateCommentsCarvedilolNausea Only 04/29/2023RosuvastatinNausea Only04/29/2023Salvia TbnfclyljjrUewyopk80/25/2024 Medications MedicationSigDispense QuantityRefillsLast FilledStart DateEnd DateStatus Synthroid 50 MCG tablet Take 1 tablet every day by oral route for 90 days.Active gabapentin (Neurontin) 600 MG tablet Take by oral route for 90 days.Active metoprolol tartrate (Lopressor) 50 MG tablet 1 (one) time each day at the same timeActive montelukast (Singulair) 10 MG tablet Take 1 tablet by mouth DailyActive loratadine (Claritin) 10 MG tablet 1 (one) time each day at the same timeActive Icosapent Ethyl (Vascepa) 1 g capsule Take 1 capsule every day by oral route for 90 days.Active fluvastatin XL (Lescol XL) 80 MG 24 hr tablet Take 1 tablet every day by oral route for 90 days.Active ergocalciferol (Vitamin D2) 1.25 MG (81885 UT) capsule 3Active risperiDONE (RisperDAL) 0.5 MG tablet Indications:Dystonia1/2-1 po q hs 30 tablet 5Active tiZANidine (Zanaflex) 4 MG tablet Indications:Dystonia,Muscle spasm1/2-1 po q bid 30 tablet 5Active onabotulinumtoxinA (Botox 200u vial IJ Soln) 200 units injection Indications:Dystonia,Muscle spasmInject 200 units every 90 days 1 each 5Active Active Problems ProblemNoted DateDiagnosed SqirQbipupfevorf14/25/2024Hypercholesteremia 01/14/20243798Lqfhtzijlph57/09/4199Lrmqbvdmeiq83/13/2018 Family History Medical HistoryRelationNameCommentsScoliosisMaternal GrandmotherMartha OsteoporosisMotherMaryOsteoporosisMother's SisterMargaretRelationNameStatus CommentsMaternal GrandmotherMarthaMotherMaryMother's SisterMargaret Social History Tobacco UseTypesPacks/DayYears UsedDateSmoking Tobacco: FormerCigarettesQuit: 09/21/2009Smokeless Tobacco: Never Tobacco Cessation:Counseling Given: Not Answered Alcohol UseStandard Drinks/WeekCommentsNot Currently0 (1 standard drink = 0.6 oz pure alcohol)CommentsUnknownSex and Gender InformationValueDate Recorded Sex Assigned at BirthNot on fileLegal PwhVrgkiy48/15/2023 6:35 PM EDTGender IdentityNot on fileSexual OrientationNot on file Last Filed Vital Signs Vital SignReadingTime TakenCommentsBlood Bzcbvdem977/8212/01/2024 8:58 AM EDT Efwgc107412/01/2024 8:58 AM EDTTemperature--Respiratory Rate--Oxygen Dpkhatztmc54% 12/01/2024 8:58 AM EDTInhaled Oxygen Concentration--Qjsbdt24.3 kg (168 lb 3.2 oz)12/01/2024 8:58 AM TNAMstqzn985.5 cm (5' 2 )12/01/2024 8:58 AM EDTBody Mass Index30.76012/01/2024 8:58 AM EDT Plan of Treatment Not on file Insurance Care Teams Team MemberRelationshipSpecialtyStart DateEnd Date Sohail Merida MD [address] [place] [address] PCP - GeneralInternal Medicine12/31/23 Lyubov Zarate DO [address] [place] [address] Referring PhysicianNeurology12/01/24
--- OUTSIDE RECORDS SUMMARY | 2025-08-23 10:46 | XMS_ITS | CCD ---
Author Organization [facility] Care Team Providers Care Search Engine Optimization Consultant Name Role Phone PHYSICIAN, DEFAULT Unavailable Unavailable PHYSICIAN, DEFAULT Unavailable Unavailable PHYSICIAN, DEFAULT Unavailable Unavailable PHYSICIAN, DEFAULT Unavailable Unavailable SOHAIL PICKERING Admitting Unavailable SOHAIL PICKERING Attending Unavailable SOHAIL PICKERING Primary Care Unavailable SOHAIL PICKERING Consulting Unavailable Viki Shankar Unavailable DAILY Swenson Attending Unavailable DAILY Swenson Admitting Unavailable SOHAIL PICKERING JR. Primary Care Unavailkraig jones Unavailable Primary Care Provider UnavailSohail Rod MD Primary Care Provider [phone] Sohail Pickering JR Primary Care Provider Cesar Hurt DO Attending Provider [phone] Sohail Pickering Primary Care Unavailable Cesar Hurt [...] SOHAIL PICKERING JR Primary Care Unavail able CHRISTOFER GANDHI Referring Unavailable CHRISTOFER GANDHI Attending Unavailable SOHAIL PICKERING JR Primary Care Unavail able ROQUE MUSTAFA Attending Unavailable Allergies Allergy ClassificationReported Allergen(s)Allergy TypeDate of OnsetReaction(s) Facility (6 sources)carvedilol; Translations: [CARVEDILOL]Drug Jzcoovc59-68-9506KvhdvyNorthcrest Medical Center (6 sources)Rosuvastatin calcium; Translations: [ROSUVASTATIN]Allergy to aojcgqtoi73-26-9112Qnzxun [facility] (5 sources)Salvia OfficinalisPropensity to adverse iraviffgz98-96-2390Jfdfwom [facility] (1 source)TAVO OIL; Translations: [TAVO OIL]Propensity to adverse reactions to drug (disorder)09-52-2339JjuqcipghcWadsworth-Rittman [facility] Medications Current Medications MedicationDrug Class(es)DatesSig (Normalized)Sig (Original)Acetaminophen (1 source)ACETAMINOPHEN (TYLENOL ORAL) Take by mouth. Activeamoxicillin 875 mg / clavulanate 125 mg oral tablet (1 source)Penicillin-class AntibacterialStart: 63-28-7283gteq 1 tablet by mouth every twelve hoursAmoxicillin-Pot Clavulanate 875-125 MG 1 tablet Orally every 12 hrs for Sep, ActiveCHOLECALCIFEROL, VITAMIN D3, (CHOLECALCIFEROL, VIT D3,,BULK, MISC) (1 source)CHOLECALCIFEROL, VITAMIN D3, (CHOLECALCIFEROL, VIT D3,,BULK, MISC) Activeergocalciferol 1.25 mg oral capsule (5 sources)Provitamin D2 CompoundStart: 63-83-5010qsfgbvaicichnd (Vitamin D2) 1.25 MG (74681 UT) capsule 05/05/2023 Activeezetimibe 10 mg oral tablet (1 source)Dietary Cholesterol Absorption InhibitorStart: 57-14-4396zjzr 1 tablet by mouth every other dayezetimibe (ZETIA) 10 mg tablet Take 10 mg by mouth every other day. 03/02/2025 Jqnysy22 hr fluvastatin 80 mg extended release oral tablet (7 sources)HMG-CoA Reductase Inhibitortake 1 tablet by mouth once daily, then take 1 tablet by mouth every twenty-four hoursfluvastatin XL (LESCOL XL) 80 mg 24 hr tablet Take 80 mg by mouth once daily. ActiveLescol XL Activegabapentin 600 mg oral tablet (6 sources)Anti-epileptic Agenttake 1 tablet by mouth three times daily gabapentin (NEURONTIN) 600 mg tablet Take 600 mg by mouth three times a day. ActiveIbuprofen (1 source)Nonsteroidal Anti-inflammatory DrugIBUPROFEN (MOTRIN ORAL) Take by mouth. Activeicosapent ethyl 1000 mg oral capsule (6 sources)Icosapent Ethyl (Vascepa) 1 g capsule Take 1 capsule every day by oral route for 90 days. ActiveVascepa Activelevothyroxine sodium 0.05 mg oral tablet (7 sources)l-Thyroxinetake 1 tablet by mouth once daily before breakfast levothyroxine (SYNTHROID) 50 mcg tablet Take 50 mcg by mouth daily before breakfast. ActiveSynthroid Activelisdexamfetamine dimesylate 40 mg oral capsule (6 sources)Central Nervous System Stimulant End: 05-31-3867atyg 1 capsule by mouth once dailyVyvanse 40 MG capsule Take 1 capsule by mouth Daily 12/01/2024 DiscontinuedVyvanse Activeloratadine 10 mg oral tablet (5 sources)loratadine (Claritin) 10 MG tablet 1 (one) time each day at the same time Activemetoprolol tartrate 25 mg oral tablet (8 sources)beta-Adrenergic Blockertake 1 tablet by mouth once dailymetoprolol tartrate, short acting, (LOPRESSOR) 25 mg tablet Take 25 mg by mouth once daily. Activemetoprolol tartrate (Lopressor) 50 MG tablet 1 (one) time each day at the same time ActiveMetoprolol Succinate ER ActiveToprol XL Not-Taking/PRN montelukast 10 mg oral tablet (6 sources)Leukotriene Receptor Antagonisttake 1 tablet by mouth once daily montelukast (Singulair) 10 MG tablet Take 1 tablet by mouth Daily Active Singulair ActiverisperiDONE 0.5 mg oral tablet (2 sources)Atypical AntipsychoticStart: 27-00-1982wcfr 0.5-1 tablets by mouth once at bedtimerisperiDONE (RisperDAL) 0.5 MG tablet Indications: Dystonia 1/2-1 po q hs 30 tablet 2 12/01/2024 ActiveStart: 25-93-4800mzjr 0.5-1 tablets by mouth once at bedtimerisperiDONE (RisperDAL) 0.5 MG tablet Indications: Dystonia 1/2-1 po q hs 30 tablet 2 12/01/2024 ActivetiZANidine 2 mg oral tablet (8 sources)Central alpha-2 Adrenergic AgonistStart: 68-06-5026hrQSZgwnop (ZANAFLEX) 2 mg tablet Indications: Dystonia Take 1-2 tablets every 6 hours as needed for spasms 120 tablet 2 05/09/2025 ActiveStart: 43-98-5535urLJRqslsa (Zanaflex) 4 MG tablet Indications: Dystonia , Muscle spasm 1/2-1 po q bid 30 tablet 2 12/01/2024 ActiveStart: 97-38-2717kqIPZvznak (Zanaflex) 4 MG tablet Indications: Dystonia , Muscle spasm 1/2-1 po q bid 30 tablet 2 12/01/2024 ActiveStart: 10-20-2024 End: 82-29-6482vlJPYmlvwo (Zanaflex) 4 MG tablet Indications: Dystonia , Muscle spasm 1/2-1 po q bid 30 tablet 2 10/20/2024 12/01/2024 DiscontinuedVitamin D (1 source)Vitamin D (Ergocalciferol) Active Completed/Discontinued Medications MedicationDrug Class(es)DatesSig (Normalized)Sig (Original)Calcium (1 source)Phosphate Binder, Calcium End: 10-88-5092JGXTOOP ORAL Take by mouth. 05/09/2025 Discontinued cyclobenzaprine hydrochloride 10 mg oral tablet (2 sources)Muscle Relaxant End: 21-38-8271kgbw 1 tablet by mouth every eight hours as neededcyclobenzaprine (FLEXERIL) 10 mg tablet Take 10 mg by mouth three times daily as needed. 05/09/2025DiscontinuedFlexeril Not-Taking/PRNDOCOSAHEXANOIC ACID/EPA (FISH OIL ORAL) (1 source) End: 62-02-5138YIHIJCPSPLWKHL ACID/EPA (FISH OIL ORAL) Take by mouth. 05/09/2025 Discontinuedfluconazole 150 mg oral tablet (1 source)Azole Antifungaltake 1 tablet by mouth once as neededDiflucan 150 MG 1 tablet Orally once for 1 days Not-Taking/PRNnystatin 624611 unt/ml topical cream (1 source)Polyene AntifungalStart: 49-84-4738Qshqqtmb 590474 UNIT/GM 1 application Externally Twice a day for 5 days Nov, Not-Taking/PRN Problems Active Problems Problem ClassificationProblemDateDocumented DateEpisodic/ChronicAnxiety disorders (3 sources)Obsessive-compulsive disorder; Translations: [Obsessive-compulsive disorder, unspecified]68-66-9692VcxejafFmlijiytj-deficit, conduct, and disruptive behavior disorders (3 sources)Attention deficit hyperactivity disorder; Translations: [Attention- deficit hyperactivity disorder, unspecified type]53-76-8669XmxoccnCnfghvv dysrhythmias (7 sources)Tachycardia; Translations: [Tachycardia, unspecified]Onset: 363547-13-8393CodatwrxNvvohgdttc heart failure; nonhypertensive (1 source)Chronic diastolic (congestive) heart failure; Translations: [CHRONIC DIASTOLIC HEART FAILURE]Onset: 64-91-2603CdcjaxdCfyumtagd of lipid metabolism (10 sources)Mixed hyperlipidemia; Translations: [Hypercholesterolemia]Onset: 455197-78-6771XyxgoncJcagjnury usually diagnosed in infancy, childhood, or adolescence (2 sources)Motor tic disorder; Translations: [Other tic disorders]12-01-2024 ChronicEssential hypertension (5 sources)Hypertensive disorder; Translations: [Essential (primary) hypertension]Onset: 430207-75-5327EyhczabWvzrdmoqzpy deficiencies (1 source)Vitamin D deficiency, unspecified; Translations: [VITAMIN D DEFICIENCY UNSPECIFIED]Onset: 65-35-6445InkiyzaPpfmcwdajlxzwj (1 source)Arthritis; Translations: [Unspecified osteoarthritis, unspecified site]88-87-1958EdbebvrSqiad aftercare (1 source)Other group home (current) drug therapy; Translations: [OTH DI[employer] MER[employer] CURRENT DRUG THERAPY]Onset: 67-97-6957OovrhimwQyfox connective tissue disease (4 sources)Spasm; Translations: [Other muscle spasm]02-98-8745IfyxkpekYdiwr hereditary and degenerative nervous system conditions (7 sources)Dystonia; Translations: [Dystonia, unspecified]88-66-6292JmzcyozVvcce hereditary and degenerative nervous system conditions (2 sources)Dystonia, unspecified; Translations: [Dystonia, unspecified]Onset: 90-78-2943PvcsbwiQcasc hereditary and degenerative nervous system conditions (1 source)Spasmodic torticollis; Translations: [Cervical dystonia]Onset: 71-80-8662MiwqfjhEgdka hereditary and degenerative nervous system conditions (1 source)Idiopathic orofacial dystonia; Translations: [Orofacial dystonia] Onset: 16-33-0064RnweoynWrfda upper respiratory infections (1 source)Acute maxillary sinusitis, unspecifiedEpisodicScreening and history of mental health and substance abuse codes (1 source)Ex-smoker; Translations: [Personal history of nicotine dependence] 91-45-6465MdmyqlpfMsssrzfesof; intervertebral disc disorders; other back problems (2 sources)Backache; Translations: [Dorsalgia, unspecified]Onset: 07-24-2016 94-39-0376ShcnovupXhzppao (5 sources)Vasovagal syncope; Translations: [Syncope and collapse]08-26-2024 EpisodicThyroid disorders (7 sources)Hypothyroidism, unspecified; Translations: [Hypothyroidism]Onset: 926426-66-5138MwwuhntTgadrosqjbqa (1 source)New PatientOnset: 32-25-8521Qhgousjfsjdf (1 source)Inappropriate sinus tachycardia, so stated; Translations: [Inappropriate sinus tachycardia, so stated]Onset: 07-12-2025 Past or Other Problems Problem ClassificationProblemDateDocumented DateEpisodic/ChronicUnclassified (1 source)Inappropriate sinus tachycardia, so stated; Translations: [Inappropriate sinus tachycardia, so stated]Onset: 07-12-2025 Results Test NameValueInterpretationReference RangeFacilityOffice Visiton 07-12-2025 Follow-up [id number] Lisa Ramos 1965 F Date Provider Department Center 07/12/2025 [facility]ROQUE MUSTAFA AUSTEN [facility] Family History Problem Relation Age of Onset Other Father Heart attack Maternal Grandfather Family Status - Relation Status Age at Mother Alive Father Maternal Grandfather Level of Service:24847 [place] OFFICE/OUTPATIENT ESTABLISHED LOW [facility] 20 MIN Reason for Visit and Comments: New Patient [632] - Patient is here today to re-establish care with cardiology. Patient complains of night sweats, leg swelling, syncope,dizziness/lightheaded. Patient denies sob/henao. Hyperlipidemia [182] Hypertension [046748] Dizziness [114367] - Lightheaded/dizziness Syncope [506] - Patient states she has had several syncopal episodes. Edema [[id number]] - Patient states she has been having ankle swelling, pcp put her on water pills which caused her stomach pain.[facility] HospitalCNOVon 29-72-1145REVXPobriq Visit (NRMDN) LISA RAMOS ([id number]) 1965 F Date Time Provider Department 06/20/25 9:00 AM CHRISTOFER GANDHI During your visit today, we recorded the following information about you: Pulse Blood pressure Weight 54/minute 167/70 72.8 kg Christofer Gandhi MD 06/20/2025 10:45 AM Signed [facility] NEUROLOGICAL ORIENTAL ORTHODOX NEUROTOXIN VISIT Date: June 20, 2025 Name: Lisa Ramos Additional Documentation for MDM Level 3 During the procedure patient complained of worsening of his Cervical dystonia (primary encounter diagnosis) Orofacial dystonia Dystonia. Brief exam: Frequent pulling of left>right corner of the mouth, activation of platysma, scalenes. She can stop it briefly with concentration when asked. Inconsistent cessation of the movement with distraction. No obvious dyskinetic movements of the lips or tongue. No head or hand tremors. No bradykinesia. Good cervical ROM. No abnormal head posture. After evaluation, the following actions were taken: Level of Service: Office/outpatient established low MDM (35014) Services provided include refill tizanidine. Ok to increase the dose within instructions on the bottle for additional benefit since no side effects. Again discussed seeing psychology but she defers at this time. SUBJECTIVE: Subjective history Tizanidine helped 20-30%. Taking 2 mg 3 times a day consistently. [place] a little sleepy the first 2 times she took it then never again. Reduced to twice daily the past week so she wouldn't run out. Seems pharmacy dispensed 21 day supply. Needs new prescription for mail order. Ready for first Botox today. Not opposed to seeing psychology but not ready for now. 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 dystonia (G24.3) Date of diagnosis: 2024 Other treatments that have been tried and failed: Medications Date of first neurotoxin treatment: Type of neurotoxin given: OnabotulinumtoxinA (Botox) Frequency of current neurotoxin treatment: 90 days Estimated frequency and duration of treatment: continue with current injection interval; will reassess after 1 year Last Injection Notes N/A - First Injection Questionnaires: In addition, the following areas that may be affected by abnormal involuntary movements were evaluated: Daily activities Difficulties with eating: Yes (slight) Difficulties in dressing: Yes (slight) Difficulties with hygiene activities: 0 (none) Difficulties with handwriting: Yes (slight) Difficulties with doing hobbies and other activities: Yes (slight) Difficulties turning in bed: 0 (none) Difficulties getting out of bed, car or chair: 0 (none) Tremors/Gait/Balance Shaking or tremors: Yes (mild) Walking and balance problems: Yes (slight) Number of falls in the Last Month: 0 Gait freezin (none) Autonomic/Pain Lightheadeness on standing: Yes (slight) Urinary problems: 0 (none) Constipation problems: Yes (slight) Pain and other sensations: Yes (mild) Speech/Swallowing Speech problems: Yes (slight) Drooling: Yes (mild) Chewing and swallowing problems: Yes (slight) Sleep/Fatigue Sleep problems: Yes (moderate) Daytime sleepiness: 0 (none) Fatigue: 0 (none) Mood/Behavior Depression: PHQ-9 Score: 8 usually representing mild (5-9) depression. Anxiety: GHANSHYAM-7 Total Score: 7 usually representing mild (5-9) anxiety. Finally, the following table shows the [...] above average, under 50 is below average Allergies: ALLERGIES No Known Allergies Current Medications: Current Outpatient Medications Medication Sig ezetimibe (ZETIA) [...] Take 80 mg by mouth once daily. tiZANidine (ZANAFLEX) 2 mg tablet Take 1-2 tablets every 6 hours as needed for spasms CHOLECALCIFEROL, VITAMIN D3, (CHOLECALCIFEROL, VIT D3,,BULK, MISC) (Patient not taking: Reported on 06/19/2025) IBUPROFEN (MOTRIN ORAL) Take by mouth. ACETAMINOPHEN (TYLENOL ORAL) Take by mouth. (Patient not taking: Reported on 06/19/2025) Current Facility-Administered Medications Medication Dose Route Frequency onabotulinum toxin type A (more content not included)...[facility] 61-77-9392WNQEWeeqks Visit (NRMDN) LISA RAMOS ([id number]) 1965 F Date Time Provider Department 05/09/25 2:00 PM CHRISTOFER GANDHI SHEREEN During your visit today, we recorded the following information about you: Weight 75.6 kg Christofer Gandhi MD 05/09/2025 6:41 PM Signed [facility] - NEW PATIENT EVALUATION Recording using Digistrive software for draft documentation of the visit was discussed with the patient/authorized sales support representative; all questions welcomed and answered. 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 Her primary care [...] Walking and balance problems: (more content not included)...NormalLake County Memorial Hospital - WestvelandCopperon 15-26-3858Hdbftu727 ug/iCLapuhz63-047Hyh [facility] Physician GroupComment on above:Result Comment: This test was developed and its performance characteristics determined by [employer]. It has not been cleared or approved by the Food and Drug Administration. Detection Limit = 5 Performed at: [address] [id number] Rn Registry: Prieto Bender MD, Phone: [phone] PERFORMED BY: [place] [address] PATHOLOGIST KID CLUB ATTENDANT PHILLIP ALEJANDRO M.D.Performed By: #### B12, CK, TSH3, FOL #### [address] #### CU #### [facility] ,Creatine Kinaseon 10-03-7323PN [Catalytic activity/Vol]39 U/XDdxqbu95-454Cow [facility] Physician GroupComment on above:Result Comment: PERFORMED BY: [place] [address] PATHOLOGIST KID CLUB ATTENDANT PHILLIP ALEJANDRO M.D.Performed By: #### B12, CK, TSH3, FOL #### [place] [address] [place] #### CU #### [facility] ,Creatine kinase [Enzymatic activity/volume] in Serum or PlasmaOrdered By: Cesar Hurt on 09-32-6868NQ [Catalytic activity/Vol]Creatine kinase [Enzymatic activity/volume] in Serum or Rjdutv28-921DfgejwhbbCincinnati [facility]S [facility] Center Folateon 98-85-1590Nfosoa77.7 ng/mLNormal>5.9The [facility] Physician Group Comment on above:Result Comment: Folate reference range: >5.9 ng/ml The WHO technical consultation on folate and vitamin b12 deficiencies has determined that folate concentrations less than 4 ng/ml are considered deficient.Performed By: #### B12, CK, TSH3, FOL #### [place] [address] [place] #### CU #### [facility] ,Folate [Mass/volume] in Serum or PlasmaOrdered By: Cesar Hurt on 10-20-2024 Folate [Mass/Vol]Folate [Mass/volume] in Serum or Plasma>5.9[facility] Medical CenterComment on above:Folate reference range: >5.9 ng/mlThe WHO technical consultation on folate and vitamin m76nggoirndpqhq has determined that folate concentrations lessthan 4 ng/ml are considered deficient.Thyroid Stimulating Hormoneon 33-97-2321JIP Qn1.86 m[IU]/LNormal0.45-5.33The [facility] Physician GroupComment on above:Result Comment: PERFORMED BY: [place] [address] PATHOLOGIST KID CLUB ATTENDANT PHILLIP ALEJANDRO M.D.Performed By: #### B12, CK, TSH3, FOL #### [place] [address] [place] #### CU #### [facility] ,Thyrotropin [Units/volume] in Serum or PlasmaOrdered By: Cesar Hurt on 40-48-7182JIE QnThyrotropin [Units/volume] in Serum or Plasma0.45-5.33[facility] Medical CenterVitamin B12on 64-53-6179Tuavjcevw (Vitamin B12) [Mass/Vol]329 pg/nAEgbicc829-498Ybd [facility] Physician GroupComment on above: Performed By: #### B12, CK, TSH3, FOL #### [facility] [address] #### CU #### [facility] ,Vitamin B12 ser/plasOrdered By: Cesar Hurt on 36-76-2725Qsvucfdcu (Vitamin B12) [Mass/Vol]Vitamin B12 ser/yoaw882-648PaljyavejCincinnati Children'S Hospital Medical CenterCT Cervical spine WO contraston . No acute osseous abnormality of the cervical spine. 2. Mild degenerative changes. [facility] CONSOLIDATEDEXAMINATION: CT OF THE CERVICAL SPINE WITHOUT CONTRAST [...] paraspinal soft tissue abnormality. Mild calcific atherosclerosis. [facility] Oliver Gomez MD - 08/26/2024 EXAMINATION: CT OF THE [...] the cervical spine. 2. Mild degenerative changes. [facility] Head WO contraston 08-26-2024 No acute intracranial abnormality. [facility] RIS CONSOLIDATEDEXAMINATION: CT OF THE HEAD WITHOUT CONTRAST 08/25/2024 [...] of the visualized skull or soft tissues. [facility] Oliver Ramos MD - 08/26/2024 EXAMINATION: CT OF THE [...] soft tissues. IMPRESSION: No acute intracranial abnormality. [facility] [place] QuuCT Head WO contrastOrdered By: Oliver Joshua on 80-21-7327Weh Quu Work Phone: Basic Metabolic Panelon 32-36-4587Wqwbq gap [Moles/Vol]11 mmol/L9 - 16 mmol/LBon [facility] PhoenixGruupMeet HealthCalcium [Mass/Vol]8.9 mg/dL8.6 - 10.4 mg/dLBon [facility] PhoenixGruupMeet HealthChloride [Moles/Vol]105 mmol/L98 - 107 mmol/LBon [facility] PhoenixGruupMeet HealthCO2 [Moles/Vol]25 mmol/L20 - 31 mmol/LBon [facility] PhoenixHeysanCreatinine [Mass/Vol]0.7 mg/dL0.7 - 1.2 mg/dLBon QuuEst, Glom Filt Rate- PINFBon [facility] PhoenixHeysanComment on above: These results are not intended [...] therapy that affects renal tubular secretion. Glucose [Mass/Vol]106 mg/qPFgle26 - 99 mg/dLBon [facility] PhoenixHeysan Interpretation and review of laboratory resultsAbnormSouthern [facility] Regional Medical Center [employer] Potassium [Moles/Vol]3.5 mmol/LLow3.7 - 5.3 mmol/LBon [facility] PhoenixHeysan Comment on above:Specimen hemolysis has exceeded the interference as defined by [place]. Value may be falsely increased. Suggest recollection if clinically indicated. Sodium [Moles/Vol]141 mmol/L136 - 145 mmol/LBon [facility] PhoenixHeysanUrea nitrogen [Mass/Vol]14 mg/dL6 - 20 mg/dLBon [facility] PhoenixHeysanCBC with Auto Differentialon 30-58-9883Qecbiowzs (Bld) [#/Vol]0.00 10*3/uLBon QuuBasophils/100 WBC (Bld)0 %0 - 2 %AcisionEosinophils (Bld) [#/Vol]0.10 10*3/uLBon SecHeysanEosinophils/100 WBC (Bld)1 %0 - 4 % AcisionErythrocyte distribution width (RBC) [Ratio]12.9 %11.5 - 14.9 %Bon QuuHematocrit (Bld) [Volume fraction]41.8 %36 - 46 % AcisionHemoglobin (Bld) [Mass/Vol]14.0 g/dL12.0 - 16.0 g/dLBon QuuInterpretation and review of laboratory resultsAbnormalBon QuuLymphocytes/100 WBC (Bld)10 %Low24 - 44 %[facility] HealthLymphocytes/100 WBC (Bld)1.00 %Bon [facility] HospitalH (RBC) [Entitic mass]29.9 pg26 - 34 pgBon SecMercy Health West HospitalHC (RBC) [Mass/Vol]33.4 g/dL31 - 37 g/dLBon SecMercy Health West HospitalV (RBC) [Entitic vol]89.5 fL80 - 100 fLBon SecOakdale Community Hospital HealthMonocytes/100 WBC (Bld)5 %1 - 7 %Bon [facility] Health Monocytes/100 WBC (Bld)0.60 %[facility] HealthNeutrophils/100 WBC (Bld)84 %High36 - 66 %Bon [facility] HealthPlatelet mean volume (Bld) [Entitic vol] 9.1 fL6.0 - 12.0 fLBon SecOakdale [facility] Hospital HealthPlatelets (Bld) [#/Vol]111 10*3/uLLow Bon [facility] HealthRBC (Bld) [#/Vol]4.68 10*6/uL4.0 - 5.2 m/uLBon SecHenry County HospitalSegmented neutrophils/100 WBC (Bld)9.00 %Bon [facility] HealthWBC other (Bld) [#/Vol]10.7[facility] SecO[facility]dale [facility] Hospital HealthCT Cervical spine WO contraston 29-46-0005Hzchcuryp Study observation (narrative) Bon SecO[facility] Hospital HealthCT Head WO contraston 93-47-6451Jnghbroli Study observation (narrative)Bon [facility] HealthMagnesiumon 69-51-8891Ffhbbimpc [Mass/Vol]2.1 mg/dL1.6 - 2.6 mg/dLBon [facility] HealthNo Panel Informationon 84-60-9347Dpd SecOakdale Community Hospital HealthTroponinon 83-92-0492Flwrxqvv I.cardiac High sensitivity method [Mass/Vol]ng/L0 - 14 ng/LBon [facility] HospitalComment on above:High Sensitivity Troponin values cannot be compared with other Troponin methodologies.Coding Summaryon 36-52-8708Ixijvy SummaryHTMLBase 64 QpksmiybPOp2aXs+PGhlYWQ+WJ6UNOElC74jtBMxvT8mD9KCYAlWDtdcTCVRZGcKEgTpvtUlNL0nrNVn ZXJu [file] Y29 (more content not included)...[facility] HospitalMR KNEE RIGHT WO IV CONTRASTon 87-19-4909DR KNEE RIGHT WO IV CONTRASTExam: MR KNEE RIGHT WO IV CONTRAST History: [...] IMPRESSION: 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 Mild osteoarthritis. ELECTRONICALLY SIGNED BY: César Trinh AvailableED Clinical Summaryon 94-05-5642ZP Clinical [facility] ? Urgent Care [address] [place] [id number] Clinical Summary PERSON INFORMATION Name: LISA RAMOS Age: 58 Years Sex: FEMALE : 1965 MRN: Acct#: Visit Reason: UC - Knee Pain or Swelling; RIGHT KNEE PAIN Arrival: 12/30/2023 16:57:55 Discharge: 12/30/2023 18:30:00 LOS: 000 01:33 Check In: 12/30/2023 16:57:55 Checkout: 12/30/2023 18:30:00 Address: [address] [place] [address] PCP: SOHAIL PICKERING JR. PROVIDER INFORMATION Provider Role Assigned Unassigned Linnette Woods RN ED Nurse 12/30/2023 17:01:07 12/30/2023 17:01:17 Linnette Woods RN ED Nurse 12/30/2023 17:01:20 nAa Alfonso RN ED Nurse 12/30/2023 17:08:48 12/30/2023 [...] Follow-Up: With: Address: When: Ethan Tiwari DO [address] [place] [address] [phone] Within 7 to 10 days Comments: Call for follow up appointment With: Address: When: SOHAIL PICKERING JR. [address] [place] [id number] DIAGNOSIS: 1:Pes anserinus tendinitis Patient Understands: Yes - Patient/family/caregiver verbalizes understanding of instructions given Comment:[facility] [id number] Patient Summary [facility] ? Urgent Care [address] [place] [address] [id number] PATIENT DISCHARGE INSTRUCTIONS Patient Information Name: LISA RAMOS Age: 58 Years Date of : 1965 Reason For Visit: UC - Knee Pain or Swelling; RIGHT KNEE PAIN Arrival Time: 12/30/2023 16:57:55 Primary Care Physician: SOHAIL PICKERING JR. Attending Physician: Kaley Swenson PA-C Comment: Patient Education With: Address: When: Ethan Tiwari DO [address] [place] [address] [phone] Within 7 to 10 days Comments: Call for follow up appointment With: Address: When: SOHAIL PICKERING JR. [address] [place] [address] Acute Knee Pain, Adult Acute knee pain [...] under your knee. General instructions ? Take rfhm-nmj-lfdmjce and prescription medicines only as told by [...] Patient Education ? 20 (more content not included)...NormalMagruder HospitalXR Knee Complete Righton 46-00-1471WZ Knee Complete RightIMAGES REVIEWED: XR Knee Complete Right COMPARISON: None available. CLINICAL INDICATION: knee pain FINDINGS/IMPRESSION: Unremarkable radiographic appearance of the right knee. Final Dictated by: Kali Wolf MD Dictated DT/TM: 12/30/23 7:04 Signed (Electronic Signature): Kali Wolf MD 12/30/23 7:04 pm Technologist: [facility] 82-23-1205Qftxqnrznrn peptide B (Bld) [Mass/Vol]pg/mLNormal<=900.0The [facility] SouthComment on above: Performed By: #### GLUC, CREA, BNP, TSH, ELEC, LIPID, LIVER, BUN #### [facility] [address] [place] [address] KarenBUNon 61-97-0015Wmsr nitrogen [Mass/Vol]10.0 mg/dLNormal7.0-17.0The [facility] SouthComment on above:Performed By: #### GLUC, CREA, BNP, TSH, ELEC, LIPID, LIVER, BUN #### [facility] [address] [place] [address] KarenCREATININEon 09-02-8392Tsqiitwajn [Mass/Vol]0.77 mg/dLNormal 0.52-1.04The [facility] SouthComment on above:Performed By: #### GLUC, CREA, BNP, TSH, ELEC, LIPID, LIVER, BUN #### [facility] [address] [place] [address] KarenCreatinine [Mass/Vol]mg/dLNormal>=60The White Hospitalment on above:Performed By: #### GLUC, CREA, BNP, TSH, ELEC, LIPID, LIVER, BUN #### [facility] [address] [place] [address] KarenELECTROLYTESon 14-12-7088Wngjb gap [Moles/Vol]11.6 mmol/LNormalThe [facility] SouthComment on above:Performed By: #### GLUC, CREA, BNP, TSH, ELEC, LIPID, LIVER, BUN #### [facility] [address] [address] Luciana KarenChloride [Moles/Vol]108 mmol/LCritically vwkr73-334Asc [facility] SouthComment on above:Performed By: #### GLUC, CREA, BNP, TSH, ELEC, LIPID, LIVER, BUN #### [facility] [address] [address] Luciana KarenCO2 [Moles/Vol]27.5 mmol/BJuzmyk75.0-30.0[facility] Comment on above:Performed By: #### GLUC, CREA, BNP, TSH, ELEC, LIPID, LIVER, BUN #### [facility] [address] [address] Luciana KarenPotassium [Moles/Vol]4.1 mmol/LNormal3.4-5.0[facility] Comment on above:Performed By: #### GLUC, CREA, BNP, TSH, ELEC, LIPID, LIVER, BUN #### [facility] [address] [address] Luciana KarenSodium [Moles/Vol]143 mmol/CIpyxgf494-615ThvMercy Health Lorain Hospital Comment on above:Performed By: #### GLUC, CREA, BNP, TSH, ELEC, LIPID, LIVER, BUN #### [facility] [address] [address] Luciana KarenGLUCOSE BLOODon 90-84-7680Hwmobpw [Mass/Vol]105 mg/zRMboecq14-071KdhMercy Health Lorain HospitalComment on above:Performed By: #### GLUC, CREA, BNP, TSH, ELEC, LIPID, LIVER, BUN #### [facility] [address] [place] [address] Luciana KarenLIPID PROFILEon 24-72-5828XWSN-HDL RATIO NORMSEE [facility] – JacksonComment on above:Result Comment: 3.3 - 4.4 LOW RISK 4.4 - 7.1 AVERAGE RISK 7.1 - 11.0 MODERATE RISK >11.0 HIGH RISKPerformed By: #### GLUC, CREA, BNP, TSH, ELEC, LIPID, LIVER, BUN #### [facility] [address] [address] Luciana KarenCholesterol [Mass/Vol]213 mg/dLCritically high<=200The [facility] SouthComment on above:Performed By: #### GLUC, CREA, BNP, TSH, ELEC, LIPID, LIVER, BUN #### [facility] [address] [place] [address] Luciana KarenCholesterol in HDL [Mass/Vol]37 mg/dLAvita Health System Galion Hospital Comment on above:Performed By: #### GLUC, CREA, BNP, TSH, ELEC, LIPID, LIVER, BUN #### [facility] [address] [place] [address] Luciana KarenCholesterol in HDL [Mass/Vol]> or = 60 mg/dl - LOW CARDIOVASCULAR RISK <40 mg/dl - HIGH CARDIOVASCULAR RISKNoSCCI Hospital LimaComment on above:Performed By: #### GLUC, CREA, BNP, TSH, ELEC, LIPID, LIVER, BUN #### [facility] [address] [place] [address] Luciana KarenCholesterol in LDL [Mass/Vol]131.6 mg/dLAvita Health System Galion Hospital Comment on above:Performed By: #### GLUC, CREA, BNP, TSH, ELEC, LIPID, LIVER, BUN #### [facility] [address] [place] [address] Luciana KarenCholesterol in LDL [Mass/Vol]SEE BELOWAvita Health System Galion Hospital Comment on above:Result Comment: <100 mg/dl OPTIMAL 100 - 129 mg/dl NEAR OR ABOVE OPTIMAL 130 - 159 mg/dl BORDERLINE HIGH 160 - 189 mg/dl HIGH >190 mg/dl VERY HIGHPerformed By: #### GLUC, CREA, BNP, TSH, ELEC, LIPID, LIVER, BUN #### [facility] [address] [place] [address] Luciana KarenCholesterol.total/Cholesterol in HDL [Mass ratio]5.8 {ratio}Normal The [facility] SouthComment on above:Performed By: #### GLUC, CREA, BNP, TSH, ELEC, LIPID, LIVER, BUN #### [facility] [address] [address] Luciana KarenTriglyceride [Mass/Vol]222 mg/dLCritically high<=150The [facility] SouthComment on above:Performed By: #### GLUC, CREA, BNP, TSH, ELEC, LIPID, LIVER, BUN #### [facility] [address] [address] Luciana KarenVLDL CALC44.4 mg/dLNormalThe [facility] SouthComment on above: Performed By: #### GLUC, CREA, BNP, TSH, ELEC, LIPID, LIVER, BUN #### [facility] [address] [place] [address] Luciana KarenLIVER PROFILEon 86-90-7239Fosuvrz [Mass/Vol]3.5 g/dLNormal3.5-5.0The [facility] SouthComment on above:Performed By: #### GLUC, CREA, BNP, TSH, ELEC, LIPID, LIVER, BUN #### [facility] [address] [place] [address] Luciana KarenAlbumin/Globulin [Mass ratio]1.0 {ratio}NormalMercy Health [facility] Hospital Comment on above:Performed By: #### GLUC, CREA, BNP, TSH, ELEC, LIPID, LIVER, BUN #### [facility] [address] [place] [address] Luciana KarenALP [Catalytic activity/Vol]67 U/XKredpo95-864BcrMercy Health Lorain Hospital Comment on above:Performed By: #### GLUC, CREA, BNP, TSH, ELEC, LIPID, LIVER, BUN #### [facility] [address] [place] [address] Luciana KarenALT [Catalytic activity/Vol]32 U/LNormal9-52The [facility] Comment on above:Performed By: #### GLUC, CREA, BNP, TSH, ELEC, LIPID, LIVER, BUN #### [facility] [address] [place] [address] Luciana KarenAST [Catalytic activity/Vol]18 U/UUouktn42-64Hrl [facility] Comment on above:Performed By: #### GLUC, CREA, BNP, TSH, ELEC, LIPID, LIVER, BUN #### [facility] [address] [place] [address] Luciana KarenBILI, CONJUGATED0.1 mg/dLNormal0.0-0.3The [facility] SouthComment on above:Performed By: #### GLUC, CREA, BNP, TSH, ELEC, LIPID, LIVER, BUN #### [facility] [address] [place] [address] Luciana KarenBilirubin Ql (U)0.7 mg/dLNormal0.2-1.3The [facility] SouthComment on above:Performed By: #### GLUC, CREA, BNP, TSH, ELEC, LIPID, LIVER, BUN #### [facility] [address] [place] [address] Luciana KarenGlobulin (S) [Mass/Vol]3.5 g/dLAvita Health System Galion HospitalComcorewell health greenville hospital on above:Performed By: #### GLUC, CREA, BNP, TSH, ELEC, LIPID, LIVER, BUN #### [facility] [address] [place] [address] Luciana KarenProtein [Mass/Vol]7.0 g/dLNormal6.1-8.2The [facility] on above:Performed By: #### GLUC, CREA, BNP, TSH, ELEC, LIPID, LIVER, BUN #### [facility] [address] [place] [address] Luciana CardenasenTSHon 00-98-3941JFS QnSEE BELOWAvita Health System Galion HospitalComment on above:Result Comment: <0.34 UIU/ml HYPERTHYROID 0.34-5.60 UIU/ml EUTHYROID >5.60 UIU/ml HYPOTHYROIDPerformed By: #### GLUC, CREA, BNP, TSH, ELEC, LIPID, LIVER, BUN #### [facility] [address] [place] [address] Qn2.093 uIU/mLNormal0.470-4.680The White Hospitalment on above:Performed By: #### GLUC, CREA, BNP, TSH, ELEC, LIPID, LIVER, BUN #### [facility] [address] [place] [address] Luciana Coe Vital Signs Date TimeVital SignValuePerforming TpfrklsqvFjuqjsoz38-67-7888 13:54-0400Body mass index (BMI) [Ratio]29.52 kg/v8WijentuChristofer Gandhi MD Work Phone: [facility]08-19-2025 13:54-0400Body .6 kgChristofer Gandhi MD Work Phone: [facility]08-19-2025 13:54-0139BnT9% (BldA) [Mass fraction]100 %Christofer Gandhi MD Work Phone: [facility]03-13-2025 08:58-0400Body trntto262.5 cmNicole Elliot DO Work Phone: [phone] CenterOnrtirybjh90-00-3963 08:58-0400Body mass index (BMI) [Ratio]30.76 kg/e9Glpeeb Elliot DO Work Phone: [facility] HospitalUcqyhtlbzz60-27-5250 08:58-0400Body hmdvyf24.3 kg Cesar Elliot DO Work Phone: [phone] CenterSidhriuioh71-13-7213 08:58-0400Diastolic blood rhyysjfb77 mm[Hg]Cesar Elliot DO Work Phone: [phone] CenterOeqnqlgejn85-50-9263 08:58-0400Heart rate64 /min Cesar Elliot DO Work Phone: [facility] CenterXbdfubnkaf59-15-1343 08:58-5395WsR1% (BldA) [Mass fraction]96 %Cesar Elliot DO Work Phone: [facility] HospitalYribgbhqmu43-60-2207 08:58-0400Systolic blood vszrkxhy602 mm[Hg]Cesar Elliot DO Work Phone: [facility] HospitalGksdouquku36-77-7446 10:27-0500Body zidbqg144.5 cmNicole Elliot DO Work Phone: [facility] CenterTafowaelgm95-62-6953 10:27-0500Body mass index (BMI) [Ratio]29.12 kg/c2Ocgwde Elliot DO Work Phone: [facility] CenterNcwtchglqx08-97-3382 10:27-0500Body .21 kgNicole Elliot DO Work Phone: [facility] CenterKjrfwuctsl79-27-1790 10:27-0500Diastolic blood audcuvxh90 mm[Hg]Cesar Elliot DO Work Phone: [phone] [place], [place] [address]Xmvbpdpxoz59-83-3314 10:27-0500Heart rate90 /min Cesar Elliot DO Work Phone: [phone]-[facility] HospitalCenterpoint Medical CenterCoraypybna86-60-8540 10:27-7002VzV5% (BldA) [Mass fraction]97 %Cesar Hurt DO Work Phone: [facility] CenterAydmiqsxaw44-08-6257 10:27-0500Systolic blood gdeoyrcf760 mm[Hg]Cesar Hurt DO Work Phone: [phone] [place], [place] [address]Cfvdyhgtji05-13-5506 00:30-0500Diastolic blood bsotbgqe89 mm[Hg]Pedro Vasquez I, DO Work Phone: [facility] PhoenixLoc[facility]RAS[facility] Cfpojb29-43-2702 00:30-0500Heart rate54 /minPedro Vasquez I, DO Work Phone: [facility] PhoenixLoc[facility] Xvkehg13-91-3225 00:30-0500 Respiratory rate14 /minPedro Vasquez I, DO Work Phone: [facility] PhoenixLoc[facility]woodsR[facility] Mnbfzm45-84-3956 00:30-6069UbZ2% (BldA) [Mass fraction]97 %Pedro Vasquez I, DO Work Phone: [facility] PhoenixLoc[facility] HospitalEbraaq04-54-7308 00:30-0500Systolic blood woqyqoaa039 mm[Hg]Pedro Vasquez I, DO Work Phone: [facility] PhoenixLoc[facility] HospitalKytgmt70-63-7644 22:17-0500Body rahmbkqului57.7 [degF]Pedro Vasquez I, DO Work Phone: bon Quu12-05-2024 20:55-0500Body gkmswi139.5 cmPedro Vasquez I, DO Work Phone: bon [facility]12-05-2024 20:55-0500Body mass index (BMI) [Ratio]28.35 kg/w6QyixtmkPedro Vasquez I, DO Work Phone: [facility]12-05-2024 20:55-0500Body xowboe51.31 kgPedro Vasquez I, DO Work Phone: bon [facility]01-16-2024 14:55-0500Body wybjqy802.02 Robi Shankar Other [employer] Other 01-16-2024 14:55-0500Body mass index (BMI) [Ratio] 30.11 kg/b8AfqtyViki Shankar Other [employer] Other 01-16-2024 14:55-0500Body tstvsssashu21.2 [degF]Viki Shankar Other [facility] Other 01-16-2024 14:55-0500Body yimfcj71.11 kgViki Shankar Other [employer] Other 01-16-2024 14:55-0500Respiratory rate18 /minViki Shankar Other [employer] Other 01-16-2024 14:55-2525YyW3% (BldA) [Mass fraction]98 % Viki Shankar Other [employer] Other Encounters Encounter DateEncounter TypeCare ProviderFacilityStart: 07-12-2025 End: 64-07-9066yhbmrcvjgyETFDTLFURFM [facility] Start: 06-20-2025 End: 47-37-8482nfjyzoikovJZEREOK APPLEBYFacility:[facility] Hospitaltart: 05-09-2025 End: 50-55-2124ysieouactmLHGQWMK APPLEBYFacility:[facility] Hospitaltart: 05-09-2025 End: 50-25-2630Fuwobk outpatient new 60 Jhonatan Gandhi MD Work Phone: NeurologyComment on above:Dystonia (Primary Dx); Obsessive-compulsive disorder, unspecified type; Attention deficit hyperactivity disorder (ADHD), unspecified ADHD typeStart: 12-01-2024 End: 56-85-1916Jsvneu flowsheetNicole Elliot DO Work Phone: ana BELLEVUEStart: 12-01-2024 End: 19-63-4786Ogluty flowsheetNicole Elliot DO Work Phone: ana BELLEVUEStart: 12-01-2024 End: 19-10-4453Crlnow outpatient visit 25 minutesNicole Elliot DO Work Phone: aNA GERMÁNUEComment on above:Dystonia (Primary Dx); Muscle spasm; Motor tic disorder (CMS/HCC); Syncope, unspecified syncope typeStart: 12-01-2024 End: 62-42-1021fhhzhpaqezFIFEQM DANNERNot AvailableStart: 10-20-2024 End: 51-77-1067Godidiw encounter procedureSohail Pickering JR Work Phone: [facility] [place] Work Phone: Start: 10-20-2024 End: 49-28-3502fmcnlypclbBmuzmwg L Valone JR Work Phone: [facility] Work Phone: Start: 10-20-2024 End: 25-13-8815Zzyfza consultation new/estab patient 60 minNicole Elliot DO Work Phone: ana SANDUSKYComment on above:Dystonia (Primary Dx); Muscle spasm; Syncope, unspecified syncope typeStart: 10-20-2024 End: 56-14-1278abuvcycsgiZVKUAP DANNERNot AvailableStart: 08-25-2024 End: 18-19-0521Bxasxnuwt department patient visitMansoamy Vasquez DO Work Phone: [facility] Emergency DepartmentComment on above: Vasovagal episode (Primary Dx)Start: 04-26-2024 End: 51-67-0323rcyuxjorftCRODK A HUDDLESTONNot AvailableStart: 01-29-2024 End: 56-25-0320imlrxjnfbxSSJQU A HUDDLESTONNot AvailableStart: 01-14-2024 End: 32-81-3661vztlarcikfLJRAJ A HUDDLESTONNot AvailableStart: 01-05-2024 End: 78-44-1543dcypchuyleSBGJL B APLINGNot AvailableStart: 12-31-2023 End: 22-54-3120idirlranwsOAIWM B APLINGNot AvailableStart: 12-30-2023 End: 60-59-2190fauhoajmacCZ Kaley SwensonFacility:[facility] HospitalStart: 10-06-2023 End: 88-70-0997dsboyzqfseAmlhy Keller Other [employer] Other Start: 05-43-3867Hobmuc outpatient new 30 minutesAmbdianne ShankarFLORENCE COMMUNITY [facility] Care ClydeStart: 03-19-2020 End: 70-14-3090Qzvgwmt encounter procedureCHARLES VALONEFacility:O1Skrrp: 09-23-2018 End: 15-54-9416Plweokh encounter procedureDEFAULT PHYSICIANFacility:UTMCStart: 08-19-2018 End: 20-33-9801Liherak encounter procedureDEFAULT PHYSICIANFacility:[facility] Procedures DateProcedureProcedure DetailPerforming ClinicianStart: 23-28-1864Ls cervical spine w/o contrast materialRob Bennett MD Work Phone: Start: 15-53-4144Rm head/brain w/o contrast material Rob Bennett MD Work Phone: Start: 61-56-7420Qydkl count complete auto&auto difrntl wbcMansour Phillip Vasquez DO Work Phone: Start: 18-72-8750Pqn routine ecg w/least 12 lds w/i&r Rob Bennett MD Work Phone: Start: 74-92-8266Xstir metabolic panel calcium total Rob Bennett MD Work Phone: Start: 10-98-0782QxmgkcjsojsIatesq Elliot DO Work Phone: Plan of Treatment DateCare ActivityDetailAuthorStart: 24-46-5245Wtzfogokz for malignant neoplasm of cervixNOMS HealthcareStart: 45-29-1637Jcymhyzcd for malignant neoplasm of colonNOMS HealthcareStart: 10-52-0840Sedrzxxv ScreeningDiabetes Screening [facility] Systemtart: 06-22-2025 End: 06-46-4522Ucmkbhw encounter edjchbyki22/02/2025 3:00 PM EDT Office Visit Neurology [address] [phone] Christofer Gandhi MD [address] [place] [address] Return in about 6 weeks (around 06/20/2025) for Botox. NeurologyComment on above:Return in about 6 weeks (around 06/20/2025) for Botox. Start: 05-39-9763Diweqvvfu vaccinationInfluenza Vaccine (#1)[facility] Start: 05-09-2025 End: 36-08-0142Ybxyqxvcyiejr [Mass/volume] in Serum or PlasmaCERULOPLASMIN Lab Routine Dystonia Expected: 05/09/2025, Expires: 08/08/2025[facility] Work Phone: Comment on above:Expected: 05/09/2025, Expires: 08/08/2025Start: 83-26-6487Xbmejvjvq for malignant neoplasm of breastBreast cancer screenBon [facility] Behavior[facility] HospitalStart: 12-01-2024 End: 06-73-8540Jpszpgx encounter procedureANA BELLEVUEComment on above:Arrived Start: 10-20-2024 End: 92-95-2554Uyzwoaqzo (Vitamin B12) [Mass/volume] in Serum or PlasmaVitamin B12 Lab Routine Dystonia Muscle spasm Expected: 10/20/2024 (Approximate), Expires: 10/20/2025NOPR HealthcareComment on above:Expected: 10/20/2024 (Approximate), Expires: 10/20/2025Start: 10-20-2024 End: 99-91-5798Kwhofn, serumCopper, serum Lab Routine Dystonia Muscle spasm Expected: 10/20/2024 (Approximate), Expires: 10/20/2025NOPR HealthcareComment on above:Expected: 10/20/2024 (Approximate), Expires: 10/20/2025Start: 10-20-2024 End: 58-49-1929Rhsyivcu kinase [Enzymatic activity/volume] in Serum or PlasmaCK Lab Routine Dystonia Muscle spasm Expected: 10/20/2024 (Approximate), Expires: 10/20/2025[facility] Work Phone: comment on above:Expected: 10/20/2024 (Approximate), Expires: 10/20/2025Start: 10-20-2024 End: 42-12-9577Rusctf [Mass/volume] in Serum or PlasmaFolate Lab Routine Dystonia Muscle spasm Expected: 10/20/2024 (Approximate), Expires: 10/20/2025 NOMS HealthcareComment on above:Expected: 10/20/2024 (Approximate), Expires: 10/20/2025Start: 10-20-2024 End: 33-85-0082Fmfwwowkrzd [Units/volume] in Serum or PlasmaTSH Lab Routine Dystonia Muscle spasm Expected: 10/20/2024 (Approximate), Expires: 10/20/2025 NOMS HealthcareComment on above:Expected: 10/20/2024 (Approximate), Expires: 10/20/2025Start: 93-04-2513DSNGQ-19 Vaccine ( season)COVID-19 Vaccine ( season)[facility]: 94-01-8162Kbdvhxzru vaccinationInfluenza Vaccine (#1)[facility] HealthcareStart: 71-95-5108Zjgluyukq vaccinationFlu vaccine (#1)[facility]: 09-38-1885Qvervvpmw for malignant neoplasm of breastNOMS HealthcareStart: 26-19-8962Xxnrbbhdc for malignant neoplasm of colonBon [facility]: 76-09-4980Hhtdin Wellness Visit (Medicare Advantage)Annual Wellness Visit (Medicare Advantage)[facility]: 27-29-8548Bzupysjjtbns Vaccine: 50+ (1 of 1 - PCV) Pneumococcal Vaccine: 50+ (1 of 1 - PCV)[facility]: 2016 Shingles vaccine (1 of 2)Shingles vaccine (1 of 2)[facility]: 17-52-5639Fgnyhhoz Vaccine (1 of 2)Shingrix Vaccine (1 of 2)[facility] Start: 12-18-3481Dyhaa panelLipid ScreeningTrinity Health Systemtart: 2011 Screening for malignant neoplasm of colonBon [facility]: 94-83-7692Myjje panelLipidsR[facility]: 28-94-5588Shwzvadu screenDiabetes screenBon [facility]: 20-54-5169Ychiipugd for malignant neoplasm of cervixBon [facility]: 29-13-6712Wkyrkukny for malignant neoplasm of cervixBon [facility]: 1985 DTaP/Tdap/Td vaccine (1 - Tdap)DTaP/Tdap/Td vaccine (1 - Tdap)[facility]: 01-33-7039Naikstrkx B vaccine (1 of 3 - 19+ 3-dose series)Hepatitis B vaccine (1 of 3 - 19+ 3-dose series)[facility]: 1985 Urine microalbumin profileDTaP,Tdap,Td Vaccine (1 - Tdap)[facility]: 64-74-4860Ephlgz PCP Team Chronic Disease VisitAnnual PCP Team Chronic Disease VisitTrinity Health Systemtart: 67-11-1868Yjbalsh ScreeningAnxiety Screening [facility]: 27-78-0434Hinxsesrgy ScreeningDepression Screening [facility]: 23-46-9040Nggolhssm C screeningSentara Princess Anne Hospital Start: 65-43-9015BAK screeningHIV ScreeningTrinity Health Systemtart: 30-18-2024BQX screeningHIV screenSentara Princess Anne HospitalStart: 96-67-7279Mrmoyfcnde Screen Depression ScreenSentara Princess Anne HospitalStart: 82-26-8397Tnfontmhf for malignant neoplasm of colonNOPR HealthcareCopper measurementCincinnati Children'S Hospital Medical CenterEKG 12 LeadEKG 12 Lead ECG STAT 08/25/2024 9:51 PM ESTSentara Princess Anne Hospital End: 63-11-2671VEJSRIHX REJECTIONSentara Princess Anne HospitalComment on above:Once for 1 Occurrences starting 08/25/2024 until 08/25/2024 Immunizations Immunization DateImmunizationNotesCare XnzqiudcUnhgvuaw11-56-1121piznbahzo virus vaccine, unspecified formulationNicole Elliot DO Work Phone: [facility] Payers DatePayer CategoryPayerPolicy [id number]-pay2024MedicareUHC MEDICARE COMMUNITY [address] UNITED HC COMM DUAL COMP PPO SNP [id number] 2024-Present [address] [address] [place], [place] [id number] Health Insurance [id number] Health [id number] 2..[id number] Health Insurance [id number] 2..[id number] 2..[id number] 2..840.[id number] 2..840.1.639045.3.57[id number] 2..840.1.721901.3.57[id number] 2..840.1.672349.3.57[id number] 2..840.1.412548.3.57[id number] 2..[id number] 2.840.1.40725[id number] 2..840.1.506830.3.57[id number] 2..840.1.337105.3.57[id number] 2..840.1.737499.3.579.2.798532-17-0400Eqvsaei Health [id number] Private Health InsuranceAetna Insurance [id number] 2.840.1.201474.3.579.2.531 Social History DateTypeDetailFacilityUnknown if ever smokedHome Health Corporation of America Other Start: 08-25-2024 End: 88-61-9263Pot Assigned At BirthNoHome Health Corporation of America Other Tobacco smoking status NHISTobacco smoking consumption unknownSentara Princess Anne HospitalStart: 08-25-2024 End: 33-21-3931Etefnru of Social functionSentara Princess Anne HospitalHow often to you have a drink containing alcohol?NeverSentara Princess Anne HospitalStart: 43-76-4073Ctb many standard drinks containing alcohol do you have on a typical day?Patient does not drinkSentara Princess Anne HospitalStart: 66-19-4704Piv assigned at birthNot on fileSentara Princess Anne HospitalStart: 04-23-2024 End: 74-92-2651Riqeuvf smoking status NHISEx-smokerNOMS Healthcare End: 51-42-3563Utaybci of tobacco useCurrent smokerNOMS Healthcare End: 23-36-2218Azarpzq of tobacco useCigarette SmokerNOMS HealthcareStart: 14-64-1205Dozzruq use and exposureSmokeless tobacco non-userNOMS Healthcare Start: 10-20-2024 End: 71-31-3822Jlphehvoh beverage intakeEx-drinker (finding)[facility] Start: 98-07-1319EgwRfhrkh (finding)[facility]: 84-52-7863Ggy [facility]igned At [facility]tart: 92-33-7071Enfedmugi beverage intakeCurrent non-drinker of alcohol (finding) [facility] Clinical Notes 10-06-2023 to 07-12-2025 Note Date & WickCizdZlyusphr96-14-1834 NoteSubjective Patient ID: Lisa Ramos is a 59 y.o. female who presents for New Patient (Patient is here today to re-establish care with cardiology. Patient complains of night sweats, leg swelling, syncope,dizziness/lightheaded. Patient denies sob/henao. ), Hyperlipidemia, Hypertension, Dizziness (Lightheaded/dizziness), Syncope (Patient states she has had several syncopal episodes. ), and Edema (Patient states she has been having ankle swelling, pcp put her on water pills which caused her stomach pain./). I need a refill on my medicine and I haven't been here in a year and a half Has dystonia, diagnosed at [facility] is real sick Hyperlipidemia Hypertension Dizziness Syncope Associated symptoms include dizziness. Edema Associated symptoms include syncope. Review of Systems Cardiovascular: Positive for syncope. Neurological: Positive for dizziness. Objective Visit Vitals BP 101/60 (BP Location: Right arm, Patient Position: Sitting) Pulse 66 Physical Exam Constitutional: Appearance: Normal appearance. She is normal weight. Cardiovascular: Rate and Rhythm: Normal rate and regular rhythm. Skin: General: Skin is warm and dry. Neurological: Mental Status: She is alert. Comments: Marked dystonic contractions of neck and back Psychiatric: Mood and Affect: Mood normal. Behavior: Behavior normal. Thought Content: Thought content normal. Assessment/Plan Mrs. Ramos has done well on metoprolol for tachycardia. Will refill. Prior evaluation demonstrates normal LV function and high heart rates over 120 bpm over 30% of time with minimal ventricular and atrial ectopy. Diagnosis Plan 1. Inappropriate sinus tachycardia metoprolol succinate XL (Toprol-XL) 50 mg 24 hr tablet 2. Palpitations metoprolol succinate XL (Toprol-XL) 50 mg 24 hr tablet Follow up in about 1 year (around 07/12/2026) for Recheck.[facility]09-30-2025 NoteHNO ID: [id number] Author: CHRISTOFER GANDHI MD Service: ? 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 Brief exam: Frequent pulling of left>right corner of the mouth, activation of platysma, scalenes. She can stop it briefly with concentration when asked. Inconsistent cessation of the movement with distraction. No obvious dyskinetic movements of the lips or tongue. No head or hand tremors. No bradykinesia. Good cervical ROM. No abnormal head posture. After evaluation, the following actions were taken: Level of Service: Office/outpatient established low MDM (65100) Services provided include refill tizanidine. Ok to increase the dose within instructions on the bottle for additional benefit since no side effects. Again discussed seeing psychology but she defers at this time. SUBJECTIVE: Subjective history Tizanidine helped 20-30%. Taking 2 mg 3 times a day consistently. [place] a little sleepy the first 2 times she took it then never again. Reduced to twice daily the past week so she wouldn't run out. Seems pharmacy dispensed 21 day supply. Needs new prescription for mail order. Ready for first Botox today. Not opposed to seeing psychology but not ready for now. 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 dystonia (G24.3) Date of diagnosis: 2024 Other treatments that have been tried and failed: Medications Date of first neurotoxin treatment: Type of neurotoxin given: OnabotulinumtoxinA (Botox) Frequency of current neurotoxin treatment: 90 days Estimated frequency and duration of treatment: continue with current injection interval; will reassess after 1 year Last Injection Notes N/A - First Injection Questionnaires: In addition, the following areas that may be affected by abnormal involuntary movements were evaluated: Daily activities Difficulties with eating: Yes (slight) Difficulties in dressing: Yes (slight) Difficulties with hygiene activities: 0 (none) Difficulties with handwriting: Yes (slight) Difficulties with doing hobbies and other activities: Yes (slight) Difficulties turning in bed: 0 (none) Difficulties getting out of bed, car or chair: 0 (none) Tremors/Gait/Balance Shaking or tremors: Yes (mild) Walking and balance problems: Yes (slight) Number of falls in the Last Month: 0 Gait freezin (none) Autonomic/Pain Lightheadeness on standing: Yes (slight) Urinary problems: 0 (none) Constipation problems: Yes (slight) Pain and other sensations: Yes (mild) Speech/Swallowing Speech problems: Yes (slight) Drooling: Yes (mild) Chewing and swallowing problems: Yes (slight) Sleep/Fatigue Sleep problems: Yes (moderate) Daytime sleepiness: 0 (none) Fatigue: 0 (none) Mood/Behavior Depression: PHQ-9 Score: 8 usually representing mild (5-9) depression. Anxiety: GHANSHYAM-7 Total Score: 7 usually representing mild (5-9) anxiety. Finally, the following table shows the [...] above average, under 50 is below average Allergies: ALLERGIES No Known Allergies Current Medications: Current Outpatient Medications Medication Sig ezetimibe (ZETIA) [...] Take 80 mg by mouth once daily. tiZANidine (ZANAFLEX) 2 mg tablet Take 1-2 tablets every 6 hours as needed for spasms CHOLECALCIFEROL, VITAMIN D3, (CHOLECALCIFEROL, VIT D3,,BULK, MISC) (Patient not taking: Reported on 06/19/2025) IBUPROFEN (MOTRIN ORAL) Take by mouth. ACETAMINOPHEN (TYLENOL ORAL) Take by mouth. (Patient not taking: Reported on 06/19/2025) Current Facility-Administered Medications Medication Dose Route Frequency onabotulinum toxin type A 100 Units injection (BOTOX) 100 Units INTRAMUSCULAR ONCE OBJECTIVE: BP 167/70 (BP Site: Left Arm, BP Position: Sitting, BP Cuff Size: Regular Adult) Pulse (!) 54 Wt 72.8 kg (160 lb 7.9 oz) SpO2 100% BMI 28.43 kg/m? Other notable (more content not included)...[facility]08-19-2025 NoteHNO ID: [id number] Author: CHRISTOFER GANDHI MD Service: ? Author Type: Physician Type: Progress Notes Filed: 05/09/2025 18:41 Note Text: [facility] - NEW PATIENT EVALUATION Recording using ambient HeartThis software for draft documentation of the visit was discussed with the patient/authorized sales support representative; all questions welcomed and answered. 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 Her primary care [...] problems: Yes (slight) P (more content not included)...[facility]08-19-2025 History of Present illness Narrative* Christofer Gandhi MD - 05/09/2025 4:46 PM EDT [facility] - NEW PATIENT EVALUATION Recording using Digistrive software for draft documentation of the visit was discussed with the patient/authorized sales support representative; all questions welcomed and answered. Patient/authorized sales support representative agreed to proceed Primary Movement Disorders Neurologist: Christofer Gandhi MD Primary Movement Disorders KAVYA: Patient not appropriate for KAVYA Primary Care Provider: Sohail Pickering Jr, DO [address] [facility] [address] Dear Sohail Pickering Jr, DO: I had [...] kink in her neck, which has progressively worsened,leading to difficulty turning her neck. She describes [...] just feel like I can't stay closed onit. She experiences numbness in her right hand, [...] required assistance from EMS. The second episode occ urred at home two months ago, where she just fell forward in her entryway. She does not endorse any other episodes of syncope or lightheadedness when standing up. She has a history of tachycardia, with a resting heart rate of 138 bpm, for which she is under the care of a supervisor real estate office and is taking metoprolol. Her primary care [...] 2+ 2+ Achilles 1+ 1+ Coordination Right: Oyjloh-fh-ssjc normal. Rapid alternating movement normal. Bbsd-xc-aqnv normal.Left: Fsjstu-lo-gvau normal. Rapid alternating movement normal. Tphl-wo-jxsc normal. Gait Casual gait is normal including [...] Dr. Cesar Hurt (November), including Zanaflex and risperidonerecommendations; patient states that she did not trial [...] process for neurotoxin prior authorization. Procedure Note: 83416 Neurotoxin: Yes Botox: [id number] Dose: 200 units Administered with EMG guidance: Yes Patient's perception of importance for healthcare provider to let them know of research trials for which they may be eligible? Somewhat important Updated Movement Disorders Medication Schedule: Medications Level of service : 32589 + 1 units 86242 ( > 89 min, [id number] for each 15 min > 89 min). Time spent 103 min on the day of service, which included preparing to see the patient, xzsb-pw-czpa patient care, completing clinical documentation, obtaining and/or [...] No Drug use: No documented in this encounterDay[facility] History of Present illness Narrative* Cesar Hurt, DO - 12/01/2024 9:15 AM EDT Images from the original note were not [...] problem is unchanged. There was facial and left- sided focality noted. Associated symptoms include back pain, [...] calmer but has not been beneficial with hersymptoms. She states that the spasm in her core or twitching in her face has not changed. She states that it is constant now and all day long. Her face will pull back and it affects her speech and her neck tightens up. It is not as severe if she is sitting still. It is affecting her daily life. Shefeels anxious all the time. Being alone and [...] cervical and thoracic muscles. Etiology of this isunclear. We did do lab work and it [...] to clinic: 6-8 weeks documented in this encounterCenterpoint Medical CenterPbkiigwame16-73-7815 History of Present illness Narrative* Cesar Hurt DO - 10/20/2024 10:30 AM EST Chief Complaint Patient presents with Tremors Syncope Subjective Lisa Ramos, 59 y.o., female being seen in Neurology consultation at the request of Dr. Pickering. HPI Syncope, tremors - seen @ [facility] referral received from Dr Sohail Pickering DO [...] episodes of passing out. She went to [facility]. She was having issues using her arms and legs and talking at that time. They did some work up and sent her home. She had a CT of the head and neck and it was reportedlynon-acute. It was felt to vasovagel. For the past 5 months she has had a feeling of spasm in her core and twitching. Her mother noticed some changes prior to that. She states that it is daily all day and intermittent. Her face will pullback and it affects her speech and her [...] to clinic: 6-8 weeks documented in this encounterCenterpoint Medical CenterSayrzxjtta29-04-3754 Hospital Discharge instructions* Discharge Instructions* Rob Bennett MD - 08/26/2024 12:57 AM EST Be sure to follow-up with your primary care provider. Return to emergency department for any acutely worsening/any symptoms or any other acute concerns. * Attachments The following attachments cannot be sent through Care Everywhere. * Fainting (Marshallese) documented in this encounterSentara Princess Anne Hospital04-10-2024 NotePatient Education Materials Follows: Acute Knee Pain, Adult Acute knee [...] under your knee. General instructions ? Take wlmk-uwk-xyoxoer and prescription medicines only as told by [...] provider. Document Revised: 02/20/2021 Document Reviewed: 02/20/2021 [facility] Patient Education ? 2022 [facility] Tendinitis Tendinitis is inflammation of a tendon. A tendon is a strong cord of tissue that connects muscle tobone. Tendinitis can affect any tendon, but it [...] involve the same mo (more content not included)...[facility] [id number] Evaluation note* Encounter Date Diagnosis Assessment Notes Treatment Notes Treatment Clinical Notes Sep, Acute non-recurrent maxillary si nusitis (ICD-10 - J01.00) Patient declines/refuses COVID testing at this time. Discussed diagnosis [...] rest, Tylenol and/or Motrin as directed for discomfort/fever, warm moist compress over sinuses several times a day, cool mist humidification, nasal saline spray as directed. Symptoms should improve in the next 3 days, if symptoms persist follow up with PCP. Immediate eval for warning s/sx as discussed. Patient verbalizes understanding and is agreeable to treatment plan [facility] Other Evaluation note* Diagnosis Vasovagal episode- Primary Syncope and collapse documented in this encounter [facility] HospitalEvaluation [facility]* Diagnosis Dystonia- Primary Abnormal involuntary movements Muscle spasm Spasm of muscle Syncope, unspecified syncope type documented in this encounter [facility] HealthcareEvaluation noteNo assessment information availableKnox Community Hospital Ctr Work Phone: Evaluation note* Diagnosis Dystonia- Primary Abnormal involuntary movements Muscle spasm Spasm of muscle Motor tic disorder (CMS/HCC) Tic disorder, unspecified Syncope, unspecified syncope type documented in this encounter [facility] HealthcareEvaluation note* Diagnosis Dystonia- Primary Abnormal involuntary movements Obsessive-compulsive disorder, unspecified type Attention deficit hyperactivity disorder (ADHD), unspecified ADHD type documented in this encounter [facility] general Narrative - Reported* Type Description Date Medical History HTN Medical HistoryHypothyroidismMedical HistoryhypercholesterolemiaMedical History Rapid HeartbeatMedical Historyseasonal allergiesSurgical Historyhysterectomy Hospitalization HistorySee Above [facility] Other Summary Purpose Family History No Family [...] and content) DATE CREATED AUTHOR 09/24/2018 [facility] DATE CREATED AUTHOR AUTHOR'S ORGANIZ ATION 04/09/2020 [facility] DATE CREATED AUTHOR AUTHOR'S ORGANIZ ATION 01/28/2024 [facility] DATE CREATED AUTHOR AUTHOR'S ORGANIZ ATION 10/30/2024 [facility] DATE CREATED AUTHOR AUTHOR'S ORGANIZ ATION 12/04/2024 [facility] DATE CREATED AUTHOR AUTHOR'S ORGANIZ ATION 06/25/2025 [facility] DATE CREATED AUTHOR AUTHOR'S ORGANIZ ATION 07/14/2025 [facility] REASON FOR VISIT (unrecogniz ed section and content) ReasonCommentsDizzinessReasonCommentsTremorsSyncopeSpecialtyDiagnoses / ProceduresReferred By ContactReferred To ContactNeurology Diagnoses Syncope and collapse Tremor, unspecified Procedures [place] OFFICE/OUTPATIENT [facility] Sohail Pickering MD [address] [place] [address] Phone: tel: fax: Giancarlo Chaparro MD [address] [place] [address] Phone: tel: fax: Referral IDStatusReasonStart DateExpiration DateVisits RequestedVisits [id number] Consult and Treat /[id number]xjorOmhlisnwBjq Patient Care Teams (unrecognized sec tion and content) Team MemberRelationshipSpecialtyStart DateEnd Date Sohail Pickering MD [address] [place] [address] PCP - GeneralInternal Medicine12/31/23 Team Status: Active Member Role Status Dates Sohail Pickering JR DO Primary Care Provider Active Team Status: Inactive Member Role Status Dates Sohail Pickering JR DO Primary Care Provider Active Start: October 20, 2024 End: October 20, 2024Nicole DO ElliotAttending ProviderActiveStart: October 20, 2024 End: October 20, 2024Team MemberRelationshipSpecialtyStart DateEnd Date Sohail Pickering MD [facility] [place] [address] PCP - GeneralInternal Medicine12/31/23 Cesar Hurt DO [address] [place] [address] Referring PhysicianNeurology12/01/24Team MemberRelationshipSpecialtyStart DateEnd Date Sohail Pickering MD [address] [place] [address] PCP - GeneralInternal Medicine12/31/23 Cesar Hurt DO [address] [place] [address] Referring PhysicianNeurology12/01/24Team MemberRelationshipSpecialtyStart DateEnd Date Sohail Pickering Jr., DO [address] [place] [address] PCP - GeneralInternal Medicine04/17/16 Goals (unrecognized section and content) Goals may be documented in a n alternate section Source Comments (unrecognize d section and content) In the event this informatio n is protected by the Federal Confidentiality of Alcohol and Drug Abuse Patient Records regulations: The Federal rules restrict any use of the information to criminally investigate or prosecute any alcohol or drug abuse patient.[facility] FOR RECORDS PERTAINING TO PATIENTS WHO ARE [...] BE BASED ON THE PRIMARY CLINICAL RECORDS. [facility]. provides no warranty or guarantee of the accuracy or completeness of information in this document.
[2025-08-23 11:02] LABS: Hematocrit 45.7 % (36.0-48.0); Hemoglobin 15.2 g/dL (12.0-16.0); Immature Granulocytes Abs Auto 0.01 10^3/uL (0.00-0.03); Immature Granulocytes Pct Auto 0.2 % (0.0-0.5); Lymphocytes Absolute Auto 0.8 10^3/uL (1.2-3.8); Mean Corpuscular HGB Conc 33.3 g/dL (29.9-35.2); Mean Corpuscular Hemoglobin 29.9 pg (26.7-34.0); Mean Corpuscular Volume 90.0 fL (81.0-99.0); Platelet Count 192 10^3/uL (150-450); Red Blood Count 5.08 10^6/uL (4.20-5.40); White Blood Count 6.0 10^3/uL (4.0-11.0)
[2025-08-23 11:43] LABS: Alanine Aminotransferase 17 U/L (14-59); Albumin Globulin Ratio 1.2; Albumin Level 3.7 g/dL (3.4-5.0); Alkaline Phosphatase 64 U/L (46-116); Anion Gap 9.1; Aspartate Amino Transferase 14 U/L (15-37); Blood Urea Nitrogen 12.0 mg/dL (7.0-18.0); Carbon Dioxide 32.8 mmol/L (21.0-32.0); Chloride 107 mmol/L (98-107); Cholesterol 153 mg/dL (<=200); Estimated GFR (African America >60 (>=60 mL/min/1.73m^2); Estimated GFR (Non-African Ame >60 (>=60 mL/min/1.73m^2); Globulin 3.0 g/dL; HDL Cholesterol 48 mg/dL (40-60); NT Pro B Type Natriuretic Pept 59.0 pg/mL (<=900.0); Potassium 3.9 mmol/L (3.5-5.1); Sodium 145 mmol/L (136-145); Thyroid Stimulating Hormone 0.261 uIU/mL (0.358-3.740); Total Protein 6.7 g/dL (6.4-8.2); Triglycerides 108 mg/dL (<=150); VLDL CHOLESTEROL 21.6 mg/dL
== END 2025-08-23 10:25 | disposition home or self-care (01) ==
LOC: LAB 10:28
PROVIDERS: PCP Internal Medicine; Visit Provider Internal Medicine
DX: E78.00 Pure hypercholesterolemia, unspecified (principal); R73.09 Other abnormal glucose; I50.30 Unspecified diastolic (congestive) heart failure; Z79.899 Other long term (current) drug therapy; E03.9 Hypothyroidism, unspecified
CPT/HCPCS: 36415; 80051; 80061; 80076; 82565; 83880; 84443; 84520; 85025